=== PATIENT | male | born 1950 | race Caucasian/White ===

== ENCOUNTER 2023-02-06 08:46 | Outpatient (OUT) | payer MEDICARE, OTHER, SELFPAY ==
--- NOTE | 2023-02-06 08:55 | XR_ITS ---
[facility] [id number] Patient Name: GENESIS CADET MRN: [id number] date: 1950 Sex: M Assigned Patient Location: [facility] Current Patient Location: [facility] Accession/Order Number: [id number] Exam Date: 02/06/2023 09:00 Report Date: 02/06/2023 09:40 At the request of: CASE RUST Procedure: XR foot LT min 3V PROCEDURE: XR foot LT min 3V COMPARISON: None. HISTORY: Left Foot Pain M79.672 FINDINGS: BONES:No acute fracture or dislocation. Moderate degenerative changes in the midfoot most significant along the dorsal tarsometatarsal joints, corresponding to the patient's palpable abnormality demarcated with the BB marker. Moderate enthesopathic spurring of the calcaneus at the Achilles and plantar insertions SOFT TISSUES:Negative. No visible soft tissue swelling. EFFUSION:None visible. OTHER: Negative. IMPRESSION: Moderate degenerative changes, corresponding to the palpable marker Electronically authenticated by: STEVE JIMENEZ Date: 02/06/2023 09:40
== END 2023-02-06 08:47 ==
LOC: RAD 08:46
PROVIDERS: PCP Family Medicine; Visit Provider Family Medicine
DX: M79.672 Pain in left foot (principal)
CPT/HCPCS: 73630

== ENCOUNTER 2024-02-05 10:29 | Emergency (ER) | payer MEDICARE, OTHER, SELFPAY ==
[2024-02-05 10:34] VITALS: BP 132/45; PULSE 55; TEMP 37.3; O2SAT 99; BMI 30.3
--- NOTE | 2024-02-05 10:44 | XR_ITS ---
[address] [address] Patient Name: GENESIS CADET MRN: [id number] date: 1950 Sex: M Assigned Patient Location: ER Current Patient Location: ER Accession/Order Number: [id number] Exam Date: 02/05/2024 10:55 Report Date: 02/05/2024 11:18 At the request of: WILLIAM WEBER Procedure: XR wrist RT min 3V PROCEDURE: XR wrist RT min 3V COMPARISON: None. HISTORY: pain FINDINGS: BONES:No acute fracture or dislocation. Moderate diffuse degenerative changes with joint space narrowing marginal osteophyte formation and chondrocalcinosis SOFT TISSUES:Negative. No visible soft tissue swelling. EFFUSION:None visible. OTHER: Negative. XR/XR wrist RT min 3V IMPRESSION: Moderate degenerative changes. No acute fracture Electronically authenticated by: STEVE JIMENEZ Date: 02/05/2024 11:18
--- NOTE | 2024-02-05 11:40 | ED_ITS ---
HPI HPI - General Adult General Chief complaint: Extremity Problem, Nontraumatic Stated complaint: RIGHT HAND PAIN Time Seen by Provider: 02/05/24 10:34 Source: patient Mode of arrival: walk-in Limitations: no limitations History of Present Illness HPI narrative: 73-year-old male to the emergency department chief complaint of pain in his right wrist. Patient reports he has a history of an injury with a fracture to this wrist. No recent issues. He reports that on Friday he was doing some work on a vehicle and doing a lot of turning of wrenches and such and afterwards experienced discomfort in his wrist. Discomfort is increased and has not improved over the intervening time. He denies any redness, warmth. He reports that there is some trace appreciable swelling over his dorsal wrist. He denies any fever, sweats, chills. No other injuries. No recent infections. No history of gout. Related Data Home Medications ?Medication ?Instructions ?Recorded ?Confirmed lisinopril 40 mg tablet mg 02/05/24 metformin 500 mg tablet mg 02/05/24 metoprolol tartrate 25 mg tablet mg 02/05/24 nitroglycerin 0.4 mg sublingual mg 02/05/24 tablet rosuvastatin 40 mg tablet mg 02/05/24 Previous Rx's ?Medication ?Instructions ?Recorded oxycodone-acetaminophen 5 mg-325 1 tab PO Q6H PRN pain #12 tabs 02/05/24 mg tablet (Percocet) prednisone 20 mg tablet 40 mg (2 x 20 mg) PO DAILY 5 days 02/05/24 #10 tabs Allergies Allergy/AdvReac Type Severity Reaction Status Date / Time No Known Drug Allergies Allergy Verified 02/05/24 10:33 Opioid HPI Opioid Management Most Recent Opioid Data: Last Pain Scale 6 02/05/24 10:46 Review of Systems ROS Status of ROS 10 or more systems reviewed and unremark able except as noted in history and below Exam Narrative Exam Narrative: VITALS: I have reviewed the triage vital signs. GENERAL: Well developed, well appearing adult in no acute distress. NEURO: Alert and oriented. Moves all extremities. Face is symmetric and expressive. EYES: PERRL. No scleral icterus or conjunctival injection. No discharge. HENT: Normocephalic, atraumatic. Hearing is grossly intact. Nares grossly patent and without discharge. Mucous membranes moist. NECK: No JVD. Patient moves neck without restriction. Right upper Extremity: Radial Pulse is intact. Limb is similar color and temperature to the contralateral limb. Compartments soft. Edema about the wrist. No redness or warmth. No ecchymosis. No laceration. No abrasion. No deformity. No bony tenderness. 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 Normal ROM of wrist, elbow, shoulder. SKIN: Warm and dry. Normal turgor. No rash or lesions appreciated. PSYCH: Mood, affect, and interaction is appropriate to the setting. Constitutional Vital Signs, click to edit/add: Last Vital Signs Temp 99.2 F 02/05/24 10:34 Pulse 55 L 02/05/24 10:34 Resp 16 02/05/24 10:34 BP 132/45 L 02/05/24 10:34 Pulse Ox 99 02/05/24 10:34 Course Vital Signs Vital signs: Vital Signs Temperature 99.2 F 02/05/24 10:34 Pulse Rate 55 L 02/05/24 10:34 Respiratory Rate 16 02/05/24 10:34 Blood Pressure 132/45 L 02/05/24 10:34 Pulse Oximetry 99 02/05/24 10:34 Temperature 99.2 F 02/05/24 10:34 Pulse Rate 55 L 02/05/24 10:34 Respiratory Rate 16 02/05/24 10:34 Blood Pressure 132/45 L 02/05/24 10:34 Pulse Oximetry 99 02/05/24 10:34 Medical Decision Making MDM Narrative Medical decision making narrative: 73-year-old male to the emergency department chief complaint of discomfort in his wrist after increased activity fixing a vehicle on Friday. Vital stable, the patient is afebrile. The right upper extremity is neurovascularly intact. There is no redness, warmth, skin breaks to suggest infectious process. History and exam do not support septic arthritis. Suspect exacerbation of underlying arthritis as cause of his discomfort. X-ray was ordered and shows moderate degenerative changes. Patient given a Percocet for his discomfort. OARRS reviewed. Pain medication and prednisone for home. He will follow-up with PCP. Return precautions were discussed. All questions were answered. The patient was discharged home. Medical Records Medical records reviewed: Yes I reviewed the patient's medical records Imaging Data X-ray wrist: Attestation: I have reviewed the pertinent imaging results. Radiologist's impression: ITS Impressions Wrist X-Ray 02/05/24 10:44 IMPRESSION: Moderate degenerative changes. No acute fracture Electronically authenticated by: STEVE JIMENEZ Date: 02/05/2024 11:18 Discharge Plan Discharge Stand Alone Forms: Portal Instructions Chief Complaint: Extremity Problem, Nontraumatic Clinical Impression: Acute arthritis Patient Disposition: Home, Self-Care Time of Disposition Decision: 11:35 Condition: Good Prescriptions / Home Meds: New prednisone 20 mg tablet 40 mg PO DAILY 5 Days Qty: 10 0RF oxycodone-acetaminophen [Percocet] 5-325 mg tablet 1 tab PO Q6H PRN (Reason: pain) Qty: 12 0RF No Action metformin 500 mg tablet nitroglycerin 0.4 mg tablet, sublingual lisinopril 40 mg tablet rosuvastatin 40 mg tablet metoprolol tartrate 25 mg tablet Print Language: Greenlandic Referrals: CASE RUST [Primary Care Provider] - 1 week
[2024-02-05] MEDS: OXYCODONE HCL/ACETAMINOPHEN 5MG/325MG 1 TAB PO (11:42)
[2024-02-05 11:44] VITALS: BP 131/56; PULSE 62; O2SAT 99
== END 2024-02-05 11:45 | disposition home or self-care (01) ==
PROVIDERS: Emergency Provider Student in an Organized Health Care Education/Training Program; PCP Family Medicine
DX: M19.031 Primary osteoarthritis, right wrist (principal)
CPT/HCPCS: 73110; 99283

== ENCOUNTER 2024-08-10 09:49 | Outpatient (OUT) | payer MEDICARE, OTHER, SELFPAY ==
--- NOTE | 2024-08-10 09:57 | CA_ITS ---
Patient Name: GENESIS CADET MR#: [id number] : 1950 Exam Date: 08/10/2024 Ordering Doctor: DR. NORAH CHIANG M.D. ECHOCARDIOGRAM REPORT PROCEDURE: CA ECHO DOPPLER COMPLETE INDICATIONS: CAD, Afib, SVT COMPARISON: None. DESCRIPTION: COMPLETE ECHOCARDIOGRAM Real-time transthoracic echocardiography with 2D, M-mode, spectral and color flow Doppler performed. QUALITY: Technical quality was good. LEFT VENTRICLE: Normal chamber size. Mild concentric left ventricular hypertrophy. LV EF: Global left ventricular systolic function is normal. Calculated left ventricular ejection fraction is 66%. No significant wall motion abnormalities. DIASTOLIC: Normal diastolic function. ATRIAL SEPTUM: Inadequately seen. LEFT ATRIUM: Moderate dilatation. RIGHT ATRIUM: Mild dilatation. RIGHT VENTRICLE: Normal chamber size. Normal right ventricular systolic function. TRICUSPID VALVE: Normal mobility and thickness. No stenosis with mild regurgitation. No evidence of pulmonary hypertension. RVSP 34mmHg MITRAL VALVE: Normal mobility and thickness. No evidence of mitral valve stenosis. There is no mitral annular calcification. Mild mitral regurgitation. AORTIC VALVE: Normal trileaflet appearance. No visible sclerosis. Normal leaflet mobility. No evidence of aortic valve stenosis. Mild aortic regurgitation. AORTIC ROOT: Normal diameter and appearance. PULMONIC VALVE: Normal thickness and mobility. No stenosis. PERICARDIUM: No evidence of pericardial effusion. IVC: Collapses with inspirations. Normal size. CONCLUSION: 1. Global left ventricular systolic function is normal; visually estimated ejection fraction is 60 to 65% 2. Normal right ventricular size and systolic function 3. Mild left ventricular hypertrophy 4. Normal diastolic function 5. Biatrial dilatation 6. Mild tricuspid regurgitation 7. Mild mitral regurgitation 8. Mild aortic valve regurgitation Adult Echocardiography Procedure Report Left Ventricle LVEDD (3.7 - 5.6 cm): 4.22 cm LVESD (2.2 - 4.0 cm): 2.86 cm LVIVS thickness (0.6 - 1.2 cm): 1.13 cm LVPW thickness (0.5 - 1.0 cm): 1.08 cm e': 0.10 m/s E - e': 9.48 LVOT Max Gradient: 4.12 mm[Hg] LVOT Area (cm2): 1.01 m/s Peak Velocity (LVOT): 1.01 m/s Mean Velocity (LVOT): 0.60 m/s LVOT Diameter 2.00 cm Left Ventricular Ejection Fraction: 66.45 % Left Atrium LA Volume Index (2D A2C): 46.08 ml/m2 Left Atrium Systolic Dimension: 4.45 cm Mitral Valve MV E to A Ratio: 1.65 Mitral Valve A-Wave Peak Velocity: 0.55 m/s Mitral Valve E-Wave Peak Velocity: 0.91 m/s Right Ventricle RV Internal Diastolic Dimension: 3.09 cm Aorta AO Root Diam: 3.31 cm Ascending Ao Diam: 3.59 cm Aortic Valve AoV Area (Peak Patrice): 2.06 cm2, 2.06 cm2 AoV Area (VTI): 2.05 cm2, 2.05 cm2 Deceleration [place]: 0.96 m/s2 Pressure Half-Time: 931.67 ms Peak Velocity(Antegrade Flow): 1.54 m/s Peak Gradient(Antegrade Flow): 9.50 mm[Hg] Mean Velocity(Antegrade Flow): 1.00 m/s Mean Gradient(Antegrade Flow): 4.72 mm[Hg] Velocity Time Integral: 38.99 cm Tricuspid Valve Peak Velocity (Regurgitant Flow): 2.75 m/s, 2.50 m/s, 2.76 m/s Pulmonic Valve Mean Gradient: 1.81 mm[Hg], 2.07 mm[Hg] Mean Velocity: 0.63 m/s, 0.67 m/s Peak Velocity: 0.98 m/s Peak Gradient: 3.56 mm[Hg], 4.13 mm[Hg] Right Atrium Right Atrium Systolic Pressure: 43.97 ml, 43.97 ml Dictated by: Prasanth Jha M.D. on 08/10/2024 at 17:06 Approved by: Prasanth Jha M.D. on 08/10/2024 at 17:09
--- OUTSIDE RECORDS SUMMARY | 2024-08-10 10:04 | XMS_ITS | CCD ---
Author Organization [facility] Care Team Providers Care Cylinder Loader Name Role Phone NAWRAS, ALI T Unavailable Unavailable NAWRAS, ALI T Unavailable Unavailable LEONID, AMOR Unavailable Unavailable FURLONG, JIMBO Unavailable Unavailable AK Unavailable Unavailable NAWRAS, ALI T Unavailable Unavailable AK Unavailable Unavailable LANCZ BURT Unavailable Unavailable FURLONG, DR JIMBO Meredith Attending Unavailable FURLONG, DR JIMBO Meredith Consulting Unavailable FURLONG, DR JIMBO Meredith Primary Care Unavailable FURLONG, DR JIMBO Meredith Admitting Unavailable NORAH ALLEN Attending Unavailable FURLONG, JIMBO Meredith Attending Unavailable FURLONG, JIMBO Meredith Referring Unavailable FURLONG, JIMBO Meredith Primary Care Unavailable FURLONG, JIMBO Meredith Attending Unavailable FURLONG, JIMBO Meredith Referring Unavailable FURLONG, JIMBO Meredith Primary Care Unavailable FURLONG, JIMBO Meredith Referring Unavailable FURLONG, JIMBO Meredith Primary Care Unavailable FURLONG, JIMBO Meredith Referring Unavailable FURLONG, JIMBO Meredith Primary Care Unavailable Furlong DOJimbo Primary Care Provider Allergies Allergy Classification Reported Allergen(s) Allergy Type Date of Onset Reaction(s) Facility (2 sources) oxyCODONE Drug Allergy 11-21-2016 [facility] Repository (4 sources) Acetaminophen / oxyCODONE; Translations: [OXYCODONE-ACETAMI NOPHEN] Drug Allergy 08-05-2022 Rash [facility] Repository (4 sources) oxyCODONE; Translations: [OXYCODONE HCL] Drug Allergy 08-05-2022 Itching [facility] Repository Medications Current Medications Medication Drug Class(es) Dates Sig (Normalized) Sig (Original) aspirin 81 mg oral tablet (1 source) Platelet Aggregation Inhibitor, Nonsteroidal Anti-inflammatory Drug take 1 tablet by mouth once daily aspirin 81 mg capsule 1 tablet Orally Once a day Active hydroCHLOROthiazide 12.5 mg oral tablet (2 sources) Thiazide Diuretic Start: 06-24-20 End: 06-25-20 24 take 1 tablet by mouth once daily hydroCHLOROthiazide (HYDRODIURIL) 12.5 mg tablet Indications: Essential (primary) hypertension TAKE 1 TABLET BY MOUTH DAILY 90 tablet 1 06/25/2024 Active latanoprost 0.05 mg/ml ophthalmic solution (1 source) Prostaglandin Analog take 1 drop(s) into the eye(s) in the evening latanoprost (XALATAN) 0.005 % ophthalmic solution latanoprost 0.005 % eye drops Instill 1 (ONE) DROP IN BOTH EYES IN THE EVENING DIRECTED Active lisinopril 40 mg oral tablet (2 sources) Angiotensin Converting Enzyme Inhibitor Start: 06-24-20 End: 06-25-20 24 take 1 tablet by mouth once daily lisinopriL (PRINIVIL,ZESTRIL) 40 mg tablet Indications: Essential (primary) hypertension TAKE 1 TABLET BY MOUTH DAILY 90 tablet 3 06/25/2024 Active metFORMIN hydrochloride 500 mg oral tablet (1 source) Biguanide Start: 03-31-20 24 take 1 tablet by mouth once daily at breakfast metFORMIN (GLUCOPHAGE) 500 mg tablet take 1 tablet by mouth daily with breakfast 90 tablet 1 03/31/2024 Active metoprolol tartrate 25 mg oral tablet (1 source) beta-Adrenergic Shanta Start: 03-31-20 24 take 1 tablet by mouth twice daily metoprolol tartrate (LOPRESSOR) 25 mg tablet Indications: Essential (primary) hypertension take 1 tablet by mouth twice daily 180 tablet 3 03/31/2024 Active firbxfcuicad-zqelbaih-m utein (MULTIVITAMIN 50 PLUS) tablet (1 source) multivitamin-min erals- lutein (MULTIVITAMIN 50 PLUS) tablet Take 1 tablet by mouth in the morning. Active nitroglycerin 0.4 mg sublingual tablet (1 source) Nitrate Vasodilator Start: 06-26-20 nitroglycerin (NITROSTAT) 0.4 MG SL tablet DISSOLVE 1 TABLET UNDER THE TONGUE NEEDED FOR CHEST PAIN- MAY REPEAT EVERY 5 MINUTES IF NEEDED ( MAX 3 DOSES.- IF NO RELIEF CALL 911) 06/26/2022 Active omega 0-zyz-xyr-fish oil 1,000 mg (250 mg-750 mg)/5 mL liquid (1 source) take 1 capsule by mouth at bedtime omega 6-rmt-wjq-fish oil 1,000 mg (250 mg-750 mg)/5 mL liquid Take 1 capsule by mouth in the morning and at bedtime. Active rosuvastatin calcium 40 mg oral tablet (2 sources) HMG-CoA Reductase Inhibitor Start: 06-24-20 End: 06-25-20 24 take 1 tablet by mouth once daily rosuvastatin (CRESTOR) 40 mg tablet Indications: Hyperlipidemia, unspecified TAKE 1 TABLET BY MOUTH DAILY 90 tablet 3 06/25/2024 Active Problems Active Problems Problem Classification Problem Date Documented Date Episodic/Chronic Cardiac dysrhythmias (6 sources) Paroxysmal atrial fibrillation; Translations: [Paroxysmal atrial fibrillation] Onset: 06-25-2012 Chronic Coronary atherosclerosis and other heart disease (7 sources) Atherosclerotic heart disease of [place] coronary artery without angina pectoris; Translations: [Coronary atherosclerosis] Onset: 05-18-2012 Chronic Coronary atherosclerosis and other heart disease (2 sources) Presence of aortocoronary bypass graft; Translations: [Presence of aortocoronary bypass graft] Onset: 02-04-2024 Episodic Disorders of lipid metabolism (11 sources) Hyperlipidemia, unspecified; Translations: [Mixed hyperlipidemia] Onset: 10-28-2016 Chronic Essential hypertension (9 sources) Essential (primary) hypertension; Translations: [Hypertensive disorder] Onset: 10-28-2016 Chronic Osteoarthritis (2 sources) Primary osteoarthritis, right wrist; Translations: [Osteoarthritis of joint of right wrist] Onset: 02-23-2024 02-23-2024 Chronic Other screening for suspected conditions (not mental disorders or infectious disease) (2 sources) Encounter for screening for malignant neoplasm of prostate; Translations: [Encounter for screening for malignant neoplasm of prostate] Onset: 02-23-2024 Episodic Unclassified (2 sources) Unknown / UNK(Unknown) Onset: 02-20-2017 Unclassified (1 source) Pure hypercholesterolemia, unspecified; Translations: [PURE HYPERCHOLESTEROLEMIA, UNSPECIFIED] Onset: 02-20-2017 Unclassified (1 source) Supraventricular tachycardia, unspecified; Translations: [Supraventricular tachycardia, unspecified] Onset: 02-04-2024 Past or Other Problems Problem Classification Problem Date Documented Date Episodic/Chronic Biliary tract disease (5 sources) Calculus of bile duct without cholangitis or cholecystitis without obstruction; Translations: [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] Onset: 02-20-2017 08-05-2022 Episodic Cardiac dysrhythmias (2 sources) Palpitations; Translations: [Palpitations] Onset: 06-25-2012 02-05-2023 Episodic Diabetes mellitus without complication (1 source) Type 2 diabetes mellitus without complication; Translations: [Type 2 diabetes mellitus without complications] Onset: 08-05-2022 Resolved: 08-05-2022 08-05-2022 Chronic Diabetes mellitus without complication (3 sources) Impaired fasting glucose; Translations: [Impaired fasting glycemia] Onset: 10-28-2016 08-05-2022 Episodic Esophageal disorders (1 source) Laryngopharyngeal reflux; Translations: [Gastro-esophageal reflux disease without esophagitis] Onset: 04-08-2020 Resolved: 02-05-2023 02-05-2023 Chronic Mood disorders (1 source) Mood disorders Onset: 04-22-2024 04-22-2024 Other aftercare (1 source) long term care administrator (current) use of aspirin; Translations: [SENIOR LIVING (CURRENT) USE OF ASPIRIN] Onset: 02-20-2017 Episodic Other nutritional; endocrine; and metabolic disorders (3 sources) Overweight; Translations: [Overweight] Onset: 08-13-2023 Episodic Other nutritional; endocrine; and metabolic disorders (1 source) Body mass index 25-29 - overweight; Translations: [Overweight] Onset: 10-11-2017 Resolved: 02-23-2024 02-23-2024 Episodic Other upper respiratory disease (1 source) Deviated nasal septum; Translations: [Deviated nasal septum] Onset: 05-01-2017 08-05-2022 Episodic Unclassified (1 source) Supraventricular tachycardia, unspecified; Translations: [Supraventricular tachycardia, unspecified] Onset: 02-04-2024 Unclassified (1 source) Onset: 08-13-2023 08-13-2023 Results Test Name Value Interpretation Reference Range Facility COMPREHENSIVE METABOLIC PANE Estuardo 02-23-2024 Albumin [Mass/Vol] 4.4 g/dL Normal 3.2-5.3 [facility] Comment on above: Performed By: #### CMP, 50219-6, 2857-1, HA1C #### [facility] ([id number]) [address], [address] [place] [address] ALP [Catalytic activity/Vol] 51 U/L Normal 39-130 [facility] Comment on above: Performed By: #### CMP, 20824-7, 2857-1, HA1C #### [facility] ([id number]) [address], [address] [place] [address] ALT [Catalytic activity/Vol] 28 U/L Normal 0-40 [facility] Comment on above: Performed By: #### CMP, 18453-3, 2857-1, HA1C #### [facility] ([id number]) [address], [address] [place] [address] Anion gap [Moles/Vol] 8 mmol/L Normal 5-15 [facility] Comment on above: Performed By: #### CMP, 71843-7, 2857-1, HA1C #### [facility] ([id number]) [address], [address] [place] [address] AST [Catalytic activity/Vol] 37 U/L Normal 0-41 [facility] Comment on above: Performed By: #### CMP, 88990-3, 2857-1, HA1C #### [facility] ([id number]) [address], [address] [place] [address] Bilirubin [Mass/Vol] 0.8 mg/dL Normal 0.3-1.2 [facility] Comment on above: Performed By: #### CMP, 16929-1, 2857-1, HA1C #### [facility] ([id number]) [address], [address] [place] [address] Calcium [Mass/Vol] 9.8 mg/dL Normal 8.5-10.5 [facility] Comment on above: Performed By: #### CMP, 32191-3, 2857-1, HA1C #### [facility] ([id number]) [address], [address] [place] [address] Chloride [Moles/Vol] 105 mmol/L Normal 98-109 [facility] Comment on above: Performed By: #### SILVIANO, 65797-9, 2857-1, HA1C #### [facility] ([id number]) [address], [address] [place] [address] CO2 [Moles/Vol] 26 mmol/L Normal 22-32 [facility] Comment on above: Performed By: #### SILVIANO, 93337-0, 2857-1, HA1C #### [facility] ([id number]) [address], [address] [place] [address] Creatinine [Mass/Vol] 0.88 mg/dL Normal 0.60-1.30 [facility] Comment on above: Result Comment: METHOD TRACEABLE TO IDMS STANDARD Performed By: #### C RIRI, 90248-8, 285-, HA1C #### [facility] ([id number]) [address], [address] [place] [address] eGFR (CKD-EPI) NON-RACE DEPENDENT >90 Normal >59 [facility] Comment on above: Result Comment: Reported eGFR is based on the CKD-EPI 2021 equation that does not use a race coefficient. Performed By: #### C RIRI, 17759-7, 2857-1, NIKKI1C #### [facility] ([id number]) [address], [address] [place] [address] Glucose [Mass/Vol] 104 mg/dL High 65-99 [facility] Comment on above: Performed By: #### SILVIANO, 42277-2, 2857-1, HA1C #### [facility] ([id number]) [address], [address] [place] [address] Potassium [Moles/Vol] 4.0 mmol/L Normal 3.5-5.0 [facility] Comment on above: Performed By: #### SILVIANO, 55222-4, 2857-1, HA1C #### [facility] ([id number]) [address] [place] [address] Protein [Mass/Vol] 7.6 g/dL Normal 6.0-8.0 [facility] Comment on above: Performed By: #### SILVIANO, 55970-0, 2857-1, HA1C #### [facility] ([id number]) [address] [place] [address] Sodium [Moles/Vol] 139 mmol/L Normal 134-146 [facility] Comment on above: Performed By: #### SILVIANO, 97367-8, 2857-1, HA1C #### [facility] ([id number]) [address] [place] [address] Urea nitrogen [Mass/Vol] 14 mg/dL Normal 5-27 [facility] Comment on above: Performed By: #### SILVIANO, 97236-3, 2857-1, HA1C #### [facility] ([id number]) [address] [place] [address] HGB A1C (GLYCO-HGB)on 2023 Glucose [Mass/Vol] 131 mg/dL Normal [facility] Comment on above: Performed By: #### SILVIANO, 10083-0, 2857-1, HA1C #### [facility] ([id number]) [address], [address] [place] [address] HbA1c (Bld) [Mass fraction] 6.2 % High 4.4-5.6 [facility] Comment on above: Result Comment: NOTE ADA Guidelines Result HgbA1c Normal : less than 5.7 % Prediabetes : 5.7 % to 6.4 % Diabetes : > 6.4 % Use with caution in patients with abnormal hemoglobin variants as the half-life of red blood cells and in vivo glycation rates are affected. Performed By: #### Estefania MENEZES, 10078-0, 2857-1, OLGA LIDIA #### [facility] ([id number]) [address], [address] [place] [address] Lipid 1996 panelon 4 Cholesterol [Mass/Vol] 116 mg/dL Low 150-200 [facility] Comment on above: Performed By: ###Becki SHORE, 70472-2, 2856-, OLGA LIDIA #### [facility] ([id number]) [address] [place] [address] Cholesterol in HDL [Mass/Vol] 45 mg/dL Normal >39 [facility] Comment on above: Result Comment: HDL <40 mg/dL - High Risk HDL > or = 40mg/dL- Desirable HDL >60 mg/dL - Negative Risk Performed By: ###[place], [address]-1, 2856-, OLGA LIDIA #### [facility] ([id number]) [address] [place] [address] Cholesterol in LDL [Mass/Vol] 39 mg/dL Normal <130 [facility] Comment on above: Result Comment: LDL <100 mg/dL - Desirable LDL >160 mg/dL - High Risk Performed By: #### Estefania MENEZES, 42076-7, 285-, OLGA LIDIA #### [facility] ([id number]) [address], [address] [place] [address] Cholesterol in VLDL [Mass/Vol] 32 mg/dL High 0-30 [facility] Comment on above: Performed By: #### SILVIANO, 77922-7, 2857-1, HA1C #### [facility] ([id number]) [address] [address] CHOLESTEROL:HDL 2.6 Normal 1.0-5.0 [facility] Comment on above: Performed By: #### CMP, 63720-3, 2857-1, HA1C #### [facility] ([id number]) [address] [place] [address] Triglyceride [Mass/Vol] 159 mg/dL High 27-150 [facility] Comment on above: Performed By: #### CMP, 60456-8, 2857-1, HA1C #### [facility] ([id number]) [address] [place] [address] Prostate specific Ag [Mass/V ol]on 02-23-2024 PSA SCREEN 2.33 ng/mL Normal 0.00-4.00 [facility] Comment on above: Result Comment: The method used for this test is Dylon Concepcion DXI chemiluminescent immunoassay. Values obtained by different assay methods cannot be used interchangeably. Performed By: #### C MP, 82922-7, 2857-1, HA1C #### [facility] ([id number]) [address] [place] [address] 29on 02-04-2024 29 Addended by: NORAH ALLEN on: 02/12/2024 05:03 PM Modules accepted: Orders Normal [facility] Office Visiton 02-04-2024 Follow-up visit [id number] Jayshree Cadet 1950 M Date Provider Department Center 02/04/2024 [id number]-EZXXQLNORAH ALLEN [facility] No family history on file Level of Service:29147 [place] OFFICE/OUTPATIENT ESTABLISHED MOD MDM 30 MIN Normal [facility] COMPREHENSIVE METABOLIC PANE Estuardo 08-13-2023 Albumin [Mass/Vol] 4.7 g/dL Normal 3.2-5.3 [facility] Comment on above: Performed By: #### SILVIANO, 48287-5 #### [facility] ([id number]) [address], [address] [place] [address] ALP [Catalytic activity/Vol] 54 U/L Normal 39-130 [facility] Comment on above: Performed By: #### CMP, 40788-8 #### [facility] ([id number]) [address], [address] [place] [address] ALT [Catalytic activity/Vol] 24 U/L Normal 0-40 [facility] Comment on above: Performed By: #### SILVIANO, 20404-3 #### [facility] ([id number]) [address], [address] [place] [address] Anion gap [Moles/Vol] 10 mmol/L Normal 5-15 [facility] Comment on above: Performed By: #### SILVIANO, 98813-5 #### [facility] ([id number]) [address], [address] [place] [address] AST [Catalytic activity/Vol] 31 U/L Normal 0-41 [facility] Comment on above: Performed By: #### SILVIANO, 85613-6 #### [facility] ([id number]) [address], [address] [place] [address] Bilirubin [Mass/Vol] 0.8 mg/dL Normal 0.3-1.2 [facility] Comment on above: Performed By: #### CMP, 36929-3 #### [facility] ([id number]) [address], [address] [place] [address] Calcium [Mass/Vol] 10.0 mg/dL Normal 8.5-10.5 [facility] Comment on above: Performed By: #### CMP, 03578-7 #### [facility] ([id number]) [address], [address] [place] [address] Chloride [Moles/Vol] 104 mmol/L Normal 98-109 [facility] Comment on above: Performed By: #### SILVIANO, 53361-4 #### [facility] ([id number]) [address], [address] [place] [address] CO2 [Moles/Vol] 25 mmol/L Normal 22-32 [facility] Comment on above: Performed By: #### SILVIANO, 23612-6 #### [facility] ([id number]) [address] [place] [address] Creatinine [Mass/Vol] 0.88 mg/dL Normal 0.60-1.30 [facility] Comment on above: Result Comment: METHOD TRACEABLE TO IDMS STANDARD Performed By: #### C RIRI, 52150-9 #### [facility] ([id number]) [address] [place] [address] eGFR (CKD-EPI) NON-RACE DEPENDENT >90 Normal >59 [facility] Comment on above: Result Comment: Reported eGFR is based on the CKD-EPI 2020 equation that does not use a race coefficient. Performed By: #### C RIRI, 74769-2 #### [facility] ([id number]) [address], [address] [place] [address] Glucose [Mass/Vol] 103 mg/dL High 65-99 [facility] Comment on above: Performed By: #### SILVIANO, 90603-5 #### [facility] ([id number]) [address] [place] [address] Potassium [Moles/Vol] 4.1 mmol/L Normal 3.5-5.0 [facility] Comment on above: Performed By: #### SILVIANO, 54754-8 #### [facility] ([id number]) [address], [address] [place] [address] Protein [Mass/Vol] 8.0 g/dL Normal 6.0-8.0 [facility] Comment on above: Performed By: #### SILVIANO, 60962-0 #### [facility] ([id number]) [address], [address] [place] [address] Sodium [Moles/Vol] 139 mmol/L Normal 134-146 [facility] Comment on above: Performed By: #### SILVIANO, 13073-4 #### [facility] ([id number]) [address] [place] [address] Urea nitrogen [Mass/Vol] 20 mg/dL Normal 5-27 [facility] Comment on above: Performed By: #### SILVIANO, 58619-8 #### [facility] ([id number]) [address] [place] [address] HGB A1C (GLYCO-HGB)on 2022 Glucose [Mass/Vol] 123 mg/dL Normal [facility] Comment on above: Performed By: #### SILVIANO, 09260-3 #### [facility] ([id number]) [address] [place] [address] HbA1c (Bld) [Mass fraction] 5.9 % High 4.4-5.6 [facility] Comment on above: Result Comment: NOTE ADA Guidelines Result HgbA1c Normal : less than 5.7 % Prediabetes : 5.7 % to 6.4 % Diabetes : > 6.4 % Use with caution in patients with abnormal hemoglobin variants as the half-life of red blood cells and in vivo glycation rates are affected. Performed By: #### C , 47264-2 #### [facility] ([id number]) [address] [place] [address] Lipid 1996 panelon 3 Cholesterol [Mass/Vol] 116 mg/dL Low 150-200 [facility] Comment on above: Performed By: #### SILVIANO, 57726-8 #### [facility] ([id number]) [address] [place] [address] Cholesterol in HDL [Mass/Vol] 42 mg/dL Normal >39 [facility] Comment on above: Result Comment: HDL <40 mg/dL - High Risk HDL > or = 40mg/dL- Desirable HDL >60 mg/dL - Negative Risk Performed By: #### Estefania MENEZES, 21526-6 #### [facility] ([id number]) [address] [place] [address] Cholesterol in LDL [Mass/Vol] 40 mg/dL Normal <130 [facility] Comment on above: Result Comment: LDL <100 mg/dL - Desirable LDL >160 mg/dL - High Risk Performed By: #### Estefania MENEZES, 35087-9 #### [facility] ([id number]) [address] [place] [address] Cholesterol in VLDL [Mass/Vol] 34 mg/dL High 0-30 [facility] Comment on above: Performed By: #### SILVIANO, 69408-1 #### [facility] ([id number]) [address] [place] [address] CHOLESTEROL:HDL 2.8 Normal 1.0-5.0 [facility] Comment on above: Performed By: #### SILVIANO, 37597-7 #### [facility] ([id number]) [address] [place] [address] Triglyceride [Mass/Vol] 172 mg/dL High 27-150 [facility] Comment on above: Performed By: #### CMP, 70775-2 #### [facility] ([id number]) [address] [place] [address] LIPID PROFILEon 07-25-2022 CHOL-HDL RATIO NORM SEE BELOW Normal [facility] Comment on above: Result Comment: 3.3 - 4.4 LOW RISK 4.4 - 7.1 AVERAGE RISK 7.1 - 11.0 MODERATE RISK >11.0 HIGH RISK Performed By: #### C MP, LIPID #### [facility] [address] [address] [address] Tessy Duran Cholesterol [Mass/Vol] 120 mg/dL Normal <=200 [facility] Comment on above: Performed By: #### CMP, LIPID #### [facility] [address] [address] [address] Tessy Duran Cholesterol in HDL [Mass/Vol] 48 mg/dL Normal 40-60 [facility] Comment on above: Performed By: #### CMP, LIPID #### [facility] [address] [address] [address] Tessy Duran Cholesterol in LDL [Mass/Vol] 39.4 mg/dL Normal [facility] Comment on above: Performed By: #### CMP, LIPID #### [facility] [address] [address] [address] Tessy Duran Cholesterol.tota l/Cholesterol in HDL [Mass ratio] 2.5 {ratio} Normal [facility] Comment on above: Performed By: #### CMP, LIPID #### [facility] [address] [place] [address] Dr. Tessy Duran HDL NORMAL > or = 60 mg/dl - LO W CARDIOVASCULAR RISK <40 mg/dl - HIGH CARDIOVASCULAR RISK Normal [facility] Comment on above: Performed By: #### CMP, LIPID #### [facility] [address] [address] [address] Tessy Duran LDL CALC NORMAL SEE BELOW Normal [facility] Comment on above: Result Comment: <100 mg/dl OPTIMAL 100 - 129 mg/dl NEAR OR ABOVE OPTIMAL 130 - 159 mg/dl BORDERLINE HIGH 160 - 189 mg/dl HIGH >190 mg/dl VERY HIGH Performed By: #### C MP, LIPID #### [facility] [address] [place] [address] Dr. Tessy Duran Triglyceride [Mass/Vol] 163 mg/dL Critically high <=150 [facility] Comment on above: Performed By: #### CMP, LIPID #### [facility] [address] [place] [address] Dr. Tessy Duran VLDL CALC 32.6 mg/dL Normal [facility] Comment on above: Performed By: #### CMP, LIPID #### [facility] [address] [place] [address] Dr. Tessy Duran PROF 14(COMP METB)on 022 Albumin [Mass/Vol] 4.1 g/dL Normal 3.4-5.0 [facility] Comment on above: Performed By: #### CMP, LIPID #### [facility] [address] [place] [address] Dr. Tessy Duran Albumin/Globulin [Mass ratio] 1.0 {ratio} Normal [facility] Comment on above: Performed By: #### CMP, LIPID #### [facility] [address] [place] [address] Dr. Tessy Duran ALP [Catalytic activity/Vol] 59 U/L Normal 46-116 [facility] Comment on above: Performed By: #### CMP, LIPID #### [facility] [address] [place] [address] Dr. Tessy Duran ALT [Catalytic activity/Vol] 54 U/L Normal 16-63 [facility] Comment on above: Performed By: #### CMP, LIPID #### [facility] [address] [place] [address] Dr. Tessy Duran Anion gap [Moles/Vol] 14.5 mmol/L Normal [facility] Comment on above: Performed By: #### CMP, LIPID #### [facility] [address] [place] [address] Dr. Tessy Duran AST [Catalytic activity/Vol] 48 U/L Critically high 15-37 [facility] Comment on above: Performed By: #### CMP, LIPID #### [facility] [address] [address] [address] Tessy Duran Bilirubin [Mass/Vol] 0.7 mg/dL Normal 0.2-1.0 [facility] Comment on above: Performed By: #### CMP, LIPID #### [facility] [address] [address] [address] Tessy Duran Calcium [Mass/Vol] 9.2 mg/dL Normal 8.5-10.1 [facility] Comment on above: Performed By: #### CMP, LIPID #### [facility] [address] [address] [address] Tessy Duran Chloride [Moles/Vol] 103 mmol/L Normal 98-107 [facility] Comment on above: Performed By: #### CMP, LIPID #### [facility] [address] [address] [address] Tessy Duran CO2 [Moles/Vol] 24.3 mmol/L Normal 21.0-32.0 [facility] Comment on above: Performed By: #### CMP, LIPID #### [facility] [address] [address] [address] Tessy Duran Creatinine [Mass/Vol] 0.87 mg/dL Normal 0.70-1.30 [facility] Comment on above: Performed By: #### CMP, LIPID #### [facility] [address] [address] [address] Tessy Duran EGFR-AF [place] >60 Normal >=60 [facility] Comment on above: Performed By: #### CMP, LIPID #### [facility] [address] [address] [address] Tessy Duran EGFR-NON AF [place] >60 Normal >=60 [facility] Comment on above: Performed By: #### CMP, LIPID #### [facility] [address] [address] [address] Tessy Duran Globulin (S) [Mass/Vol] 4.2 g/dL Normal [facility] Comment on above: Performed By: #### CMP, LIPID #### [facility] [address] [address] [address] Tessy Duran Glucose [Mass/Vol] 104 mg/dL Normal 74-106 [facility] Comment on above: Performed By: #### CMP, LIPID #### [facility] [address] [address] [address] Tessy Duran Potassium [Moles/Vol] 3.8 mmol/L Normal 3.5-5.1 [facility] Comment on above: Performed By: #### CMP, LIPID #### [facility] [address] [address] [address] Tessy Duran Protein [Mass/Vol] 8.3 g/dL Critically high 6.4-8.2 [facility] Comment on above: Performed By: #### CMP, LIPID #### [facility] [address] [address] [address] Tessy Duran Sodium [Moles/Vol] 138 mmol/L Normal 136-145 [facility] Comment on above: Performed By: #### CMP, LIPID #### [facility] [address] [address] [address] Tessy Duran Urea nitrogen [Mass/Vol] 16.0 mg/dL Normal 7.0-18.0 [facility] Comment on above: Performed By: #### CMP, LIPID #### [facility] [address] [address] [address] Tessy Duran Urea nitrogen/Creatin ine [Mass ratio] 18.4 mg/mg Normal [facility] Comment on above: Performed By: #### CMP, LIPID #### [facility] [address] [address] [address] Tessy Duran BASIC METABOLIC PANELon BUN/CREATININE RATIO NOT APPLICABLE Normal 6-22 [facility] Comment on above: Performed By: #### 03084, 496, 4420 #### [facility] [address], [address] [place] [id number] Director Of Billing: Karlo Ardon MD Calcium [Mass/Vol] 9.7 mg/dL Normal 8.6-10.3 [facility] Comment on above: Performed By: #### 79575, 496, 7600 #### [facility] [place] [address] Director Of Billing: Karlo Ardon MD Chloride [Moles/Vol] 106 mmol/L Normal 98-110 [facility] Comment on above: Performed By: #### 13554, 496, 7600 #### [facility] [place] [address] Director Of Billing: Karlo Ardon MD CO2 [Moles/Vol] 26 mmol/L Normal 20-32 [facility] Comment on above: Performed By: #### 78506, 496, 7600 #### [facility] [place] [address] Director Of Billing: Karlo Ardon MD Creatinine [Mass/Vol] 0.95 mg/dL Normal 0.70-1.18 [facility] Comment on above: Result Comment: For patients >49 years o f age, the reference limit for Creatinine is approximately 13% higher for people identified as -[place]. Performed By: #### 1 0165, 496, 7600 #### [facility] [place] [address] Director Of Billing: Karlo Ardon MD eGFR NON-AFR. [place] 81 mL/min/1.73m2 Normal > OR = 60 [facility] Comment on above: Performed By: #### 20427, 496, 7600 #### [facility] [place] [address] Director Of Billing: Karlo Ardon MD GFR/1.73 sq M.predicted among blacks MDRD (S/P/Bld) [Vol rate/Area] 94 mL/min/{1.73_m2} Normal > OR = 60 [facility] Comment on above: Performed By: #### 84506, 496, 7600 #### [facility] [place] [address] Director Of Billing: Karlo Ardon MD Glucose [Mass/Vol] 99 mg/dL Normal 65-99 [facility] Comment on above: Result Comment: Fasting reference interval Performed By: #### 1 0165, 496, 7600 #### [facility] [place] [address] Director Of Billing: Karlo Ardon MD Potassium [Moles/Vol] 4.1 mmol/L Normal 3.5-5.3 [facility] Comment on above: Performed By: #### 72385, 496, 7600 #### [facility] [place] [address] Director Of Billing: Karlo Ardon MD Sodium [Moles/Vol] 140 mmol/L Normal 135-146 [facility] Comment on above: Performed By: #### 80600, 496, 7600 #### [facility] [place] [address] Director Of Billing: Karlo Ardon MD Urea nitrogen [Mass/Vol] 22 mg/dL Normal 7-25 [facility] Comment on above: Performed By: #### 92892, 496, 7600 #### [facility] [place] [address] Director Of Billing: Karlo Ardon MD HEMOGLOBIN A1con 01-31-2022 HEMOGLOBIN A1c 5.6 % of total Hgb Normal <5.7 [facility] Comment on above: Result Comment: For the purpose of scree leni for the presence of diabetes: <5.7% Consistent with the absence of diabetes 5.7-6.4% Consistent with increased risk for diabetes (prediabetes) > or =6.5% Consistent with diabetes This assay result is consistent with a decreased risk of diabetes. Currently, no consensus exists regarding use of hemoglobin A1c for diagnosis of diabetes in children. According to [place] Diabetes Association (ADA) guidelines, hemoglobin A1c <7.0% represents optimal control in non- diabetic patients. Different metrics may apply to specific patient populations. Standards of Medical Care in Diabetes(ADA). Performed By: #### 1 0165, 496, 7600 #### [facility] [address], [address] [place] [address] Director Of Billing: Karlo Ardon MD LIPID PANEL, [facility] Cholesterol [Mass/Vol] 129 mg/dL Normal <200 [facility] Comment on above: Order Comment: FASTING:YES FASTING: YES Performed By: #### 1 0165, 496, 7600 #### [facility] [address], [address] [place] [address] Director Of Billing: Karlo Ardon MD Cholesterol in HDL [Mass/Vol] 44 mg/dL Normal > OR = 40 [facility] Comment on above: Order Comment: FASTING:YES FASTING: YES Performed By: #### 1 0165, 496, 7600 #### [facility] [address], [address] [place] [address] Director Of Billing: Karlo Ardon MD Cholesterol in LDL [Mass/Vol] 59 mg/dL Normal [facility] Comment on above: Order Comment: FASTING:YES FASTING: YES Result Comment: Refe rence range: <100 Desirable range <100 mg/dL for primary prevention; <70 mg/dL for patients with CHD or diabetic patients with > or = 2 CHD risk factors. LDL-C is now calculated using the Celestino-Smiley calculation, which is a validated novel method providing better accuracy than the Friedewald equation in the estimation of LDL-C. Celestino GARDUNO et al. JAYLEN. 2013;310(19): 7196-8329 (http://education.Carnegie Speech.Appiterate/faq/SAK618) Performed By: #### 1 0165, 496, 2870 #### [facility] [address], [address] [place] [address] Director Of Billing: Karlo Ardon MD Cholesterol.tota l/Cholesterol in HDL [Mass ratio] 2.9 {ratio} Normal <5.0 [facility] Comment on above: Order Comment: FASTING:YES FASTING: YES Performed By: #### 1 0165, 496, 7600 #### [facility] [address], [address] [place] [address] Director Of Billing: Karlo Ardon MD NON HDL CHOLESTEROL 85 mg/dL (calc) Normal <130 [facility] Comment on above: Order Comment: FASTING:YES FASTING: YES Result Comment: For patients with diabetes plus 1 major ASCVD risk factor, treating to a non-HDL-C goal of <100 mg/dL (LDL-C of <70 mg/dL) is considered a therapeutic option. Performed By: #### 1 0165, 496, 7600 #### [facility] [place] [address] Director Of Billing: Karlo Ardon MD Triglyceride [Mass/Vol] 179 mg/dL High <150 [facility] Comment on above: Order Comment: FASTING:YES FASTING: YES Performed By: #### 1 0165, 496, 7600 #### [facility] [place] [address] Director Of Billing: Karlo Ardon MD [facility] METABOLIC [facility] 06-20-2021 Albumin [Mass/Vol] 4.5 g/dL Normal 3.6-5.1 [facility] Comment on above: Performed By: #### 7600, 5363, 11664 ### # [facility] [place] [address] Director Of Billing: Karlo Ardon MD Albumin/Globulin [Mass ratio] 1.6 {ratio} Normal 1.0-2.5 [facility] Comment on above: Performed By: #### 7600, 5363, 59753 ### # [facility] [place] [address] Director Of Billing: Karlo Ardon MD ALP [Catalytic activity/Vol] 49 U/L Normal 35-144 [facility] Comment on above: Performed By: #### 7600, 5363, 51893 ### # [facility] [place] [address] Director Of Billing: Karlo Ardon MD ALT [Catalytic activity/Vol] 28 U/L Normal 9-46 [facility] Comment on above: Performed By: #### 7600, 5363, 81590 ### # [facility] [address] [place] [address] Director Of Billing: Karlo Ardon MD AST [Catalytic activity/Vol] 35 U/L Normal 10-35 [facility] Comment on above: Performed By: #### 7600, 5363, 14534 ### # [facility] of [place] [address] Director Of Billing: Karlo Ardon MD Bilirubin [Mass/Vol] 0.6 mg/dL Normal 0.2-1.2 [facility] Comment on above: Performed By: #### 7600, 5363, 45426 ### # [facility] of [place] [address] Director Of Billing: Karlo Ardon MD BUN/CREATININE RATIO NOT APPLICABLE Normal 6-22 [facility] Comment on above: Performed By: #### 7600, 5363, 80019 ### # [facility] of [place] [address] Director Of Billing: Karlo Ardon MD Calcium [Mass/Vol] 9.7 mg/dL Normal 8.6-10.3 [facility] Comment on above: Performed By: #### 7600, 5363, 69332 ### # [facility] of [place] [address] Director Of Billing: Karlo Ardon MD Chloride [Moles/Vol] 106 mmol/L Normal 98-110 [facility] Comment on above: Performed By: #### 7600, 5363, 43907 ### # [facility] of [place] [address] Director Of Billing: Karlo Ardon MD CO2 [Moles/Vol] 27 mmol/L Normal 20-32 [facility] Comment on above: Performed By: #### 7600, 5363, 98892 ### # [facility] of [place] [address] Director Of Billing: Karlo Ardon MD Creatinine [Mass/Vol] 0.85 mg/dL Normal 0.70-1.25 [facility] Comment on above: Result Comment: For patients >49 years o f age, the reference limit for Creatinine is approximately 13% higher for people identified as -[place]. Performed By: #### 7 600, 5363, 58304 #### [facility] [address], [address] [place] [address] Director Of Billing: Karlo Ardon MD eGFR NON-AFR. [place] 89 mL/min/1.73m2 Normal > OR = 60 [facility] Comment on above: Performed By: #### 7600, 5363, 38993 ### # [facility] [address], [address] [place] [address] Director Of Billing: Karlo Ardon MD GFR/1.73 sq M.predicted among blacks MDRD (S/P/Bld) [Vol rate/Area] 103 mL/min/{1.73_m2} Normal > OR = 60 [facility] Comment on above: Performed By: #### 7600, 5363, 16923 ### # [facility] [address], [address] [place] [address] Director Of Billing: Karlo Ardon MD Globulin (S) [Mass/Vol] 2.8 g/dL Normal 1.9-3.7 [facility] Comment on above: Performed By: #### 7600, 5363, 01561 ### # [facility] [place] [address] Director Of Billing: Karlo Ardon MD Glucose [Mass/Vol] 113 mg/dL High 65-99 [facility] Comment on above: Result Comment: Fasting reference interval For someone without known diabetes, a glucose value between 100 and 125 mg/dL is consistent with prediabetes and should be confirmed with a follow-up test. Performed By: #### 7 600, 5363, 98558 #### [facility] [address], [address] [place] [address] Director Of Billing: Karlo Ardon MD Potassium [Moles/Vol] 3.8 mmol/L Normal 3.5-5.3 [facility] Comment on above: Performed By: #### 7600, 5363, 19445 ### # [facility] of [address], [address] [place] [address] Director Of Billing: Karlo Ardon MD Protein [Mass/Vol] 7.3 g/dL Normal 6.1-8.1 [facility] Comment on above: Performed By: #### 7600, 5363, 74940 ### # [facility] of [address], [address] [place] [address] Director Of Billing: Karlo Ardon MD Sodium [Moles/Vol] 140 mmol/L Normal 135-146 [facility] Comment on above: Performed By: #### 7600, 5363, 14875 ### # [facility] of [address], [address] [place] [address] Director Of Billing: Karlo Ardon MD Urea nitrogen [Mass/Vol] 15 mg/dL Normal 7-25 [facility] Comment on above: Performed By: #### 7600, 5363, 52006 ### # [facility] of [place] [address] Director Of Billing: Karlo Ardon MD LIPID PANEL, [address] Cholesterol [Mass/Vol] 121 mg/dL Normal <200 [facility] Comment on above: Order Comment: FASTING:YES FASTING: YES Performed By: #### 7 600, 5363, 99675 #### [facility] [place] [address] Director Of Billing: Karlo Ardon MD Cholesterol in HDL [Mass/Vol] 46 mg/dL Normal > OR = 40 [facility] Comment on above: Order Comment: FASTING:YES FASTING: YES Performed By: #### 7 600, 5363, 35291 #### [facility] [place] [address] Director Of Billing: Karlo Ardon MD Cholesterol in LDL [Mass/Vol] 41 mg/dL Normal [facility] Comment on above: Order Comment: FASTING:YES FASTING: YES Result Comment: Refe rence range: <100 Desirable range <100 mg/dL for primary prevention; <70 mg/dL for patients with CHD or diabetic patients with > or = 2 CHD risk factors. LDL-C is now calculated using the Kiesha calculation, which is a validated novel method providing better accuracy than the Friedewald equation in the estimation of LDL-C. Celestino GARDUNO et al. JAYLEN. 2013;310(19): 1378-1192 (http://8th Story.VectorMAX/faq/TOR420) Performed By: #### 7 600, 5363, 34308 #### [facility] [address], [address] [place] [address] Director Of Billing: Karlo Ardon MD Cholesterol.tota l/Cholesterol in HDL [Mass ratio] 2.6 {ratio} Normal <5.0 [facility] Comment on above: Order Comment: FASTING:YES FASTING: YES Performed By: #### 7 600, 5363, 97376 #### [facility] [address], [address] [place] [address] Director Of Billing: Karlo Ardon MD NON HDL CHOLESTEROL 75 mg/dL (calc) Normal <130 [facility] Comment on above: Order Comment: FASTING:YES FASTING: YES Result Comment: For patients with diabetes plus 1 major ASCVD risk factor, treating to a non-HDL-C goal of <100 mg/dL (LDL-C of <70 mg/dL) is considered a therapeutic option. Performed By: #### 7 600, 5363, 39477 #### [facility] [address], [address] [place] [address] Director Of Billing: Karlo Ardon MD Triglyceride [Mass/Vol] 292 mg/dL High <150 [facility] Comment on above: Order Comment: FASTING:YES FASTING: YES Result Comment: If a non-fasting specimen was collected, consider repeat triglyceride testing on a fasting specimen if clinically indicated. Dawit et al. J. of Clin. Lipidol. 2015;9:129-169. Performed By: #### 7 600, 5363, 64311 #### [facility] [address], [address] [place] [address] Director Of Billing: Karlo Ardon MD PSA, TOTALon 06-20-2021 PSA, TOTAL 1.95 ng/mL Normal < OR = 4.00 [facility] Comment on above: Result Comment: The total PSA value from this assay system is standardized against the WHO standard. The test result will be approximately 20% lower when compared to the equimolar-standardized total PSA (Dylon Mati). Comparison of serial PSA results should be interpreted with this fact in mind. This test was performed using the Siemens chemiluminescent method. Values obtained from different assay methods cannot be used interchangeably. PSA levels, regardless of value, should not be interpreted as absolute evidence of the presence or absence of disease. Performed By: #### 7 600, 5363, 43115 #### [facility] [address], [address] [place] [address] Director Of Billing: Karlo Ardon MD Operative Reporton Operative Report MR#: [id number] [facility] Pt. Name: Geensis Cadet Room #: 0C Discharge 02/20/2017 Date: Birthdate: 1950 OPERATIVE REPORTDATE OF SURGERY: 02/20/2017SURGEON: Nba Reynaga M.D.ANESTHESIA:General anesthesia administered by anesthesia team and Levaquin 500 mg IVx1.PREOPERATIVE DIAGNOSIS:OPERATION:Endosco pic retrograde cholangiopancreatography with biliary stone and stentremoval and sphincterotomy.POSTOPERATIV E DIAGNOSIS:PROCEDURE:After obtaining the informed consent, which included the risks, benefits,alternatives, and complications, complications including bleeding,perforation, reaction to medication, pancreatitis, infection, diabetes,surgery, prolonged hospitalization, and remote possibility of , thepatient agreed to proceed with the procedure. The patient was placed inthe semi-prone position. After receiving general anesthesia administeredby anesthesia, after which the Olympus video and side-viewing duodenoscopewas introduced through the mouth down to the esophagus, stomach, then tothe first and second part of the duodenum with no difficulties. Thepreviously placed biliary stent was noted protruding through the papillainto the duodenal lumen. The stent was removed with a snare. With the useof the RX-44 sphincterotome, loaded with a 0.035-inch guidewire, thecommon bile duct was cannulated selectively. Contrast was injected andsmall filling defect was noted at the distal common bile duct. Biliarysphincterotomy was performed. The sphincterotome was then removed over theguidewire. A 9-12 mm injecting below balloon catheter was then advancedover the wire into the common bile duct. The common bile duct was swepttwo times. A few stone fragments were removed from the common bile duct.Final cholangiogram revealed no filling defects within the common bileduct.IMPRESSION: 1) Successful removal of previously placed biliary stent. 2) Removal of common bile duct stones with balloon sweep after performing a sphincterotomy.PLAN:We will see the patient on a p.r.n. basis.Electronically Signed by:Nba Reynaga M.D. 03/24/2017 08:08 A Nba Reynaga M.D.Date Dict: 02/26/2017//Nba Reynaga M.D.Date Trans: 03/01/2017 11:39 A/Long_JN:[id number]/cc: Jimbo Gleason M.D. [facility] [address] [place], [address] [facility] [address] [address] [facility] [address] [facility] ERCPon 02-20-2017 [facility] [place] [address] Patient Name: GENESIS CADET : 1950ex: MAge: Race: OtherMRN: [id number]. Location: 230Patient Status: Date: 02/17/2017 5:00:00 AMCompleted Date: 02/20/2017 01:04 PMRequesting Provider: SHARMILA MARCUS Attending Provider: Report Copy To: Signs & Symptoms: R10.9 Unspecified abdominal pain [id number]: AthenaComments: , , Appointment Date: 02/17/2017 , Appointment Time: 10:30AM , , , Ordering Provider - SHARMILA MARCUS , Exam: ERCPAccession #: [id number] ERCP 02/20/2017 1:04 PM EDT SIGNS AND SYMPTOMS: , , Appointment Date: 02/17/2017 , Appointment Time: 10:30AM , , , Ordering Provider - SHARMILA MARCUS , ERCP with Dr. Reynaga 2:33min fluoro time TECHNIQUE: Intraprocedural fluoroscopy without radiologist supervision or interpretation. Electronically signed by:Elver Justin M.D.. Transcribed by: [email or web address], User Resident: Electronically Signed by: ELVER JUSTIN @ 02/20/2017 01:37 PM Normal [facility] Comment on above: Order Comment: , , Appointment Date: , Appointment Time: 10:30AM , , , Ordering Provider - SHARMILA MARCUS , Encounters Encounter Date Encounter Type Care Provider Facility Start: 06-25-2024 End: 06-25-2024 Refill Jimbo Gleason DO Work Phone: [facility] Comment on above: Essential (primary) hypertension; Hyperlipidemia, unspecified Start: 02-23-2024 End: 02-23-2024 ambulatory JIMBO GLEASON [facility] Start: 02-23-2024 End: 02-23-2024 ambulatory CANNON Viri [facility] Start: 02-04-2024 End: 02-04-2024 ambulatory [facility] Start: 08-13-2023 End: 08-13-2023 ambulatory JIMBO Viri [facility] Start: 08-13-2023 End: 08-13-2023 [facility] Start: 07-25-2022 End: 07-26-[address] WILLOUGHBY Viri YOCASTA Facility: Start: 02-20-2017 End: 02-21-2017 Ambulatory NBA REYNAGA Facility:[facility] Procedures Date Procedure Procedure Detail Performing Clinician Start: 04-22-2024 Adult depression screening assessment Jimbo Gleason DO Work Phone: Start: 02-20-2017 Anesth, upper gi visualize BURT BECKETT Start: 02-20-2017 ENDO CHOLANGIOPANCREATOGRAPH NBA You Start: 02-20-2017 ERCP REMOVE DUCT CALCULI NBA REYNAGA Start: 02-20-2017 ERCP REMOVE FORGN BODY DUCT NBA REYNAGA Plan of Treatment Date Care Activity Detail Author Start: 02-05-2033 DTaP,Tdap and Td Vaccines (3 - Td or Tdap) DTaP,Tdap and Td Vaccines (3 - Td or Tdap) [facility] Start: 04-04-2026 Screening for malign ant neoplasm of colon Colon Cancer Screening 3 Year Cologuard [facility] Start: 04-26-2025 End: 04-26-2025 Patient encounter procedure 04/26/2025 10:00 AM EDT Office Visit [facility] Internal Medicine - Family Medicine [address] [place] [address] [facility] Internal [facility] - [facility] Start: 04-22-2025 Adult BMI Screening Adult [facility] Screen ing [facility] Start: 04-22-2025 Depression Screening [facility] Scre [facility]ing [facility] Start: 04-22-2025 Medicare Annual Well ness Visit Medicare Annual Wellness Visit [facility] Start: 04-19-2025 Fall Risk Screening Fall Risk Screen ing [facility] Start: 02-22-2025 Tobacco Screening Tobacco Screening [facility] Start: 08-13-2024 Adult BMI Follow Up Plan Adult BMI Follow Up Plan [facility] Start: 04-25-2024 COVID-19 Vaccine ( season) COVID-19 Vaccine ( season) [facility] Start: 04-25-2024 Influenza vaccination Influenza Vacc ine [facility] Immunizations Immunization Date Immunization Notes Care Provider Fa cility 05-27-2023 Influenza, High-dose , Quadrivalent Jimbo Furlong DO Work Phone: [facility] 05-27-2023 influenza virus vacc ine, unspecified formulation Jimbo Furlong DO Work Phone: [facility] 02-05-2023 tetanus toxoid, redu robb diphtheria toxoid, and acellular pertussis vaccine, adsorbed Jimbo Furlong DO Work Phone: [facility] 10-30-2022 zoster vaccine recombinant Jimbo Furlong DO Work Phone: [facility] 08-30-2022 zoster vaccine recombinant Jimbo Furlong DO Work Phone: [facility] 08-08-2022 COVID-19, mRNA, LNP- S, PF, 100mcg/0.5mL Dose Jimbo Furlong DO Work Phone: [facility] 05-29-2022 Influenza, High-dose , Quadrivalent Jimbo Furlong DO Work Phone: [facility] 11-24-2021 COVID-19, mRNA, LNP- S, PF, 100mcg/0.5mL Dose Jimbo Furlong DO Work Phone: [facility] 11-24-2021 SARS-COV-2 (COVID-19 ) Vaccine, Unspecified Jimbo Furlong DO Work Phone: [facility] 06-22-2021 COVID-19, mRNA, LNP- S, PF, 100mcg/0.5mL Dose Jimbo Furlong DO Work Phone: [facility] 06-22-2021 SARS-COV-2 (COVID-19 ) Vaccine, Unspecified Jimbo Furlong DO Work Phone: [facility] 06-12-2021 influenza, seasonal, injectable Jimbo Furlong DO Work Phone: [facility] 06-04-2021 Influenza, High-dose , Quadrivalent Jimbo Furlong DO Work Phone: [facility] 06-04-2021 pneumococcal polysaccharide vaccine, 23 valent Jimbo Furlong DO Work Phone: [facility] 11-15-2020 COVID-19, mRNA, LNP- S, PF, 100mcg/0.5mL Dose Jimbo Furlong DO Work Phone: [facility] 11-15-2020 SARS-COV-2 (COVID-19 ) Vaccine, Unspecified Jimbo Furlong DO Work Phone: [facility] 10-19-2020 COVID-19, mRNA, LNP- S, PF, 100mcg/0.5mL Dose Jimbo Furlong DO Work Phone: [facility] 10-19-2020 SARS-COV-2 (COVID-19 ) Vaccine, Unspecified Jimbo Furlong DO Work Phone: [facility] 05-09-2020 influenza, seasonal, injectable Jimbo Furlong DO Work Phone: [facility] 04-25-2020 influenza, injectabl e, quadrivalent, contains preservative Jimbo Furlong DO Work Phone: [facility] 06-25-2019 influenza, seasonal, injectable Jimbo Furlong DO Work Phone: [facility] 06-07-2019 influenza, seasonal, injectable Jimbo Furlong DO Work Phone: [facility] 05-28-2018 influenza, high dose seasonal, preservative-free Jimbo Furlong DO Work Phone: [facility] 06-11-2017 influenza virus vacc ine, unspecified formulation Jimbo Furlong DO Work Phone: [facility] 06-11-2016 pneumococcal conjuga te vaccine, 13 valent Jmibo Furlong DO Work Phone: [facility] 06-08-2016 influenza virus vacc ine, unspecified formulation Jimbo Furlong DO Work Phone: [facility] 06-21-2013 pneumococcal conjuga te vaccine, 13 valent Jimbo Furlong DO Work Phone: [facility] 09-19-2008 tetanus toxoid, redu robb diphtheria toxoid, and acellular pertussis vaccine, adsorbed Jimbo Furlong DO Work Phone: [facility] Payers Date Payer Category Payer Managed Care Other (unspecified) [facility] [id number] 2020 Unknown [id number] 2016 Medicare MEDICARE [id number] 1959 Medicare [id number] 1959 Unknown [id number] 1951 Unknown [id number] 1951 Unknown [id number] 1951 Unknown [id number] 1951 Unknown [id number] 1951 Unknown [id number] Medicare [id number] Social History Date Type Detail Facility [facility]: [facility]05[facility]2022 [facility] Start: 08-05-2022 Tobacco use and exposure Smoke less tobacco non-user [facility] Start: 02-23-2024 Alcoholic beverage intake Curr ent drinker of alcohol (finding) [facility] Start: 10-29-2022 End: 08-13-2023 History of Social function [facility] Start: 10-29-2022 End: 08-13-2023 [facility] Utilities [facility] Has the [employer], or [employer] threatened to shut off services in your home in past 12Mo No [facility] Do you belong to any clubs or organizations such as presybeterian groups, unions, fraternal or athletic groups, or school groups? Yes [facility] Are you now , , , , never or living with a partner? [facility] How often to you hav e a drink containing alcohol? 2-3 time sa week [facility] How many standard dr inks containing alcohol do you have on a typical day? 1 or 2 [facility] How often do you hav e 6 or more drinks on 1 occasion? Never [facility] How hard is it for y ou to pay for the very basics like food, housing, medical care, and heating Not hard at all [facility] Do you feel stress - tense, restless, nervous, or anxious, or unable to sleep at night because your mind is troubled all the time - these days [OSQ] Not at all [facility] Start: 1950 Sex assigned at Not on file [facility] [employer] [facility] Start: 03-28-2015 Sex Male (finding) [facility] Progress note 02-04-2024 Note Date & Type Note Facility 02-04-2024 Note [facility] Cardiology - [facility] Ximena Cadet is a 73 y.o. year old male patient being seen for No chief complaint on file. HPI The patient is 72-year-old male with history of CAD, s/p CABG 2011, atrial fibrillation, s/p Maze procedure 2011, history of AV preston reentrant supraventricular tachycardia, s/p slow pathway ablation in 2011, hypertension, and hyperlipidemia Patient is here today for follow-up visit. He states that he has been doing well. He denies any chest pain or shortness of breath at rest or with exertion. He denies orthopnea or paroxysmal nocturnal dyspnea or dizziness or palpitations or legs edema or leg discomfort on exertion. He states that he exercises on stationary bicycle 90 minutes every day. He denies smoking or illicit drugs. He drinks alcohol occasionally. He was diagnosed recently with borderline diabetes and he was started on metformin in addition to low calorie low-carb diet ROS All systems were reviewed and they were within normal limits except for any positive findings noted above in the history Past Medical History: Diagnosis Date Atrial fib/flutter, transient (CMS/HCC) CAD (coronary artery disease) HLD (hyperlipidemia) HTN (hypertension) SVT (supraventricular tachycardia) (CMS/HCC) Past Surgical History: Procedure Laterality Date ABLATION OF DYSRHYTHMIC FOCUS CORONARY ARTERY BYPASS GRAFT PAUL-MAZE MICROWAVE ABLATION No family history on file. Social History Tobacco Use Smoking status: Never Smokeless tobacco: Never Allergies Allergies Allergen Reactions Oxycodone Hcl Itching Oxycodone-Acetaminophen Rash Medications Current Outpatient Medications: aspirin 81 mg EC tablet, Take 81 mg by mouth in the morning., Disp: , Rfl: hydroCHLOROthiazide (HYDRODiuril) 12.5 mg tablet, Take 12.5 mg by mouth in the morning., Disp: , Rfl: latanoprost (Xalatan) 0.005 % ophthalmic solution, Instill 1 (ONE) DROP IN BOTH EYES IN THE EVENING DIRECTED, Disp: , Rfl: lisinopril 40 mg tablet, Take 40 mg by mouth in the morning., Disp: , Rfl: metFORMIN (Glucophage) 500 mg tablet, Take 500 mg by mouth with breakfast., Disp: , Rfl: metoprolol tartrate (Lopressor) 25 mg tablet, Take 25 mg by mouth in the morning and at bedtime., Disp: , Rfl: nitroglycerin (Nitrostat) 0.4 mg SL tablet, DISSOLVE 1 TABLET UNDER THE TONGUE NEEDED FOR CHEST PAIN- MAY REPEAT EVERY 5 MINUTES IF NEEDED ( MAX 3 DOSES.- IF NO RELIEF CALL 911), Disp: 90 tablet, Rfl: 0 omeprazole (PriLOSEC) [address] capsule, 1 capsule., Disp: , Rfl: rosuvastatin (Crestor) 40 mg tablet, Take 1 tablet (40 mg) by mouth in the morning., Disp: 30 tablet, Rfl: 11 Objective Visit Vitals BP 136/74 (BP Location: Left arm, Patient Position: Sitting) Pulse 50 Ht 1.676 m (5' 6 ) Wt 85.3 kg (188 lb) SpO2 96% BMI 30.34 kg/m??? Smoking Status Never BSA 1.99 m??? Physical exam: GENERAL: alert and oriented x3, well developed, in no acute distress. HEAD: atraumatic, normocephalic. EYES: AMY, EOMI. NECK: trachea midline, no JVD present, no carotid bruits present. CARDIAC: S1, S2 present. RRR. No murmur, rubs, or gallops. RESPIRATORY: CTAB, no increased effort of breathing, no rales, rhonchi, or wheezing. ABDOMEN: soft, nontender, nondistended. EXTREMITIES: no lower extremity edema, peripheral pulses are 2+ bilaterally. No rash/skin discoloration present. NEURO: strength/sensation equal and symmetric in bilateral upper and lower extremities. PSYCH: appropriate mood, affect, and judgement. Recent Labs 08/13/2023 Cholesterol 116, triglyceride 172, HDL 42, LDL 40 Sodium 139, potassium 4.1, BUN 20, creatinine 0.88, Glucose 103, calcium 10, GFR above 90 Total protein 8, albumin 4.7, alk phos 54, AST 31, ALT 24, total bilirubin Imaging and other tests EK04/23/2021 showed sinus bradycardia, heart rate 44 bpm, otherwise no EKG abnormalities EKG 02/03/2017 showed sinus bradycardia, heart rate 57 bpm, cannot exclude inferior infarct age indeterminant Cardiac cath:05/15/2012 CABG 05/28/2012 EP Procedure 06/04/2012 Assessment/Plan: CAD, s/p CABG 05/28/2012 3 grafts SNYDER to LAD, SVG to PDA, radial artery to OM 2, he is on aspirin, Plavix, simvastatin, and metoprolol A-fib, s/p maze procedure 05/28/2012, maintaining normal sinus rhythm, he is on aspirin and Plavix History of AV preston reentrant SVT, 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 Plan: Continue current medications except Plavix. No indication to continue Plavix and no benefit at this point. Check fasting lipids and LFTs Check BMP Continue with the exercise program and current diet Patient will call to verify which statin he is on when he goes home Follow-up in 6 months Norah Allen MD, [facility] Progress note 02-04-2024 Note Date & Type Note Facility 02-04-2024 Note Patient here for 1 y ear follow up CAD, hypertension, PAF, and hyperlipidemia. Had routine labs w/ lipid panel in Jul 2023. He denies chest pain, SOB, palpitations, and lightheadedness/syncope. Review of Systems Musculoskeletal: Positive for joint pain and myalgias. All other systems reviewed and are negative. [facility] Evaluation note Note Date & Type Note Facility Evaluation note Diagnosis Essential (primary) hypertension Unspecified essential hypertension Hyperlipidemia, unspecified documented in this encounter [facility] Instructions Note Date & Type Note Facility Instructions Not on filedocumented in this en counter [facility] Summary Purpose Family History No Family History Records FoundNo Family History Records FoundNo Family History Records FoundNo Family History Records FoundNo Family History Records FoundNo Family History Records Found Advance Directives No Advanced Directives Records FoundNo Advanced Directives Records FoundNo Advanced Directives Records FoundNo Advanced Directives Records FoundNo Advanced Directives Records FoundNo Advanced Directives Records Found Additional Source Comments (unrecognized sect ion and content) No Status Records FoundNo Status Records FoundNo Status Records FoundNo Status Records FoundNo Status Records FoundNo Status Records Found INFORMATION SOURCE (unrecogn ized section and content) DATE CREATED AUTHOR 02/18/2018 [facility] DATE CREATED AUTHOR AUTHOR'S ORGANIZ ATION 01/31/2022 [facility] DATE CREATED AUTHOR AUTHOR'S ORGANIZ ATION 07/27/2022 [facility] DATE CREATED AUTHOR AUTHOR'S ORGANIZ ATION 02/14/2024 [facility] DATE CREATED AUTHOR AUTHOR'S ORGANIZ ATION 02/23/2024 [facility] DATE CREATED AUTHOR AUTHOR'S ORGANIZ ATION 02/24/2024 [facility] Reason for Visit (unrecogniz ed section and content) Reason Comments Med Refill Care Teams (unrecognized sec tion and content) [employer]yl[employer]er Relationship Specialty Start Date End Date Jimbo Gleason DO [address] [place] [address] PCP - General Family Medicine 06/27/22 FOR RECORDS PERTAINING TO PATIENTS WHO ARE OR HAVE BEEN ENROLLED IN A CHEMICAL DEPENDENCY/SUBSTANCEABUSE PROGRAM, SOME INFORMATION MAY BE OMITTED. This clinical summary was aggregated from multiple sources. Caution should be exercised in using it in the provision of clinical care. This summary normalizes information from multiple sources, and as a consequence, information in this document may materially change the coding, format and clinical context of patient data. In addition, data may be omitted in some cases. CLINICAL DECISIONS SHOULD BE BASED ON THE PRIMARY CLINICAL RECORDS. [facility] [employer] [facility]. provides no warranty or guarantee of the accuracy or completeness of information in this document.
== END 2024-08-10 09:50 | disposition home or self-care (01) ==
PROVIDERS: PCP Family Medicine; Visit Provider Internal Medicine Cardiovascular Disease
DX: I25.10 Atherosclerotic heart disease of native coronary artery without angina pectoris (principal); I48.0 Paroxysmal atrial fibrillation; I47.10 Supraventricular tachycardia, unspecified; E78.5 Hyperlipidemia, unspecified
CPT/HCPCS: 93306

== ENCOUNTER 2025-02-26 08:36 | Outpatient (OUT) | payer MEDICARE, OTHER, SELFPAY ==
--- OUTSIDE RECORDS SUMMARY | 2025-02-23 08:30 | XMS_ITS | Encounter Summary ---
Author Organization [facility] tem Address [id number] [address] [place] [address] Care Team Providers [employer] Professional Name Role Phone Jimbo Gleason DO Primary Care Provider + [phone] Reason for Visit * Reason Comments Hyperlipidemia Hypertension Cv, left hip pain Encounter Details Date Type Department Care Team (Late st Contact Info) Description 02/23/2025 8:30 AM EDT Office Visit [facility] Internal Medicine - Family Medicine [address] [place] [address] Jimbo Gleason DO [address] [facility], [place] [address] Essential hypertension (Primary Dx); Mixed hyperlipidemia; Impaired fasting glucose; Left hip pain; Paroxysmal atrial fibrillation (CMS-HCC); SVT (supraventricular tachycardia); Overweight (BMI 25.0-29.9); Encounter for screening for malignant neoplasm of prostate Social History Tobacco Use Types Packs/Day Years Used Date Smoking Tobacco: Never Smokeless Tobacco: Never Alcohol Use Standard Drinks/Week Comments Yes 0 (1 standard drink = 0.6 oz pur e alcohol) [facility] Utilities Answer Date Recorded In the past 12 months has [employer], gas, oil, or water company threatened to shut off services in your home? No 08/13/2023 Social Connection and Isolation Panel [NHANES] A nswer Date Recorded In a typical week, how many times do you talk on the phone with family, friends, or neighbors? Never 10/30/19 How often do you get togethe r with friends or relatives? Once a week 10/29/2022 How often do you attend chur ch or oriental orthodox services? 1 to 4 times per year 10/29/2022 Do you belong to any clubs o r organizations such as gnosticist groups, unions, fraternal or athletic groups, or school groups? Yes 10/29/2022 How often do you attend meet ings of the clubs or organizations you belong to? Never 10/29/2022 Are you , , di vorced, , never , or living with a partner? 10/29/2022 AUDIT-C Answer Date Recorded Q1: How often do you have a drink containing alc ohol? 2-3 times a week 10/29/2022 Q2: How many drinks containi ng alcohol do you have on a typical day when you are drinking? 1 or 2 10/29/2022 Q3: How often do you have si x or more drinks on one occasion? Never 10/29/2022 Overall Financial Resource Strain (CARDIA) Answe r Date Recorded How hard is it for you to pa y for the very basics like food, housing, medical care, and heating? Not hard at all 02/21/2025 PHQ-2 Answer Date Recorded Total Score 0 02/23/2025 [facility] [place] of Occupat ional Health - Occupational Stress Questionnaire Answer Date Recorded Do you feel stress - tense, restless, nervous, or anxious, or unable to sleep at night because your mind is troubled all the time - these days? Not at all 10/29/2022 Exercise Vital Sign Answer Date Recorde d On average, how many days pe r week do you engage in moderate to strenuous exercise (like a brisk walk)? 5 days 10/29/2022 On average, how many minutes do you engage in exercise at this level? 90 min 10/29/2022 PRAPARE - Transportation Answer Date Re corded In the past 12 months, has l ack of transportation kept you from medical appointments or from getting medications? No 01/25 In the past 12 months, has l ack of transportation kept you from meetings, work, or from getting things needed for daily living? No 02/21/2025 Housing Instability Answer Date Recorde d Are you worried or concerned that in the next two months you may not have stable housing that you own, rent or stay in as a part of a household? No 02/21/2025 Childcare Answer Date Recorded Do problems getting child ca re make it difficult for you to work or study? No 10/29/2022 Employment Answer Date Recorded Do you need help finding a [facility] career center and/or a training program? No 10/29/2022 Hunger Screening Answer Date Recorded Within the past 12 months we worried whether our food would run out before we got money to buy more. Never True 02/21/2025 Within the past 12 months th e food we bought just didn't last and we didn't have money to get more. Never True 02/21/2025 Purpose - Life Answer Date Recorded I have a purpose and direction in my life. Stron gly Agree 10/29/2022 Sex and Gender Information Value Date Recorded Sex Assigned at Not on file Legal Sex Male 7:17 PM EDT Gender Identity Not on file Sexual Orientation Not on file documented as of this encounter Last Filed Vital Signs Vital Sign Reading Time Taken Comments Blood Pressure 140/70 02/23/2025 8:34 AM EDT Pulse 55 02/23/2025 8:34 AM EDT Temperature 36.6 C (97.9 F) 02/23/2025 8:34 AM EDT Respiratory Rate 20 02/23/2025 8:34 AM EDT Oxygen Saturation 97% 02/23/2025 8:34 AM EDT Inhaled Oxygen Concentration - - Weight 83.5 kg (184 lb) 02/23/2025 8:34 AM EDT Height 167.6 cm (5' 5.98 ) 02/23/2025 8:34 AM ED T Body Mass Index 29.71 02/23/2025 8:34 AM EDT documented in this encounter Progress Notes * Jimbo Gleason, DO - 02/23/2025 8:30 AM EDT Images from the original note were not included. Subjective Patient ID: Michele Lr is a 74 y.o. male. Girish presents today for a CV recheck. He is taking his medications. He does not have any side effects. He is seeing the veterinary medicine scientist. He last saw her in July. She ordered an echocardiogram and took him off his blood thinner. He has had left hip pain for years and it is getting worse. Pain wakes him up at night. Hard to getshoes on. It sometimes feels like it is going to give out. It keeps him from exercising. It is hardto mow his lawn and he was thinking about getting a riding mower because it hurts so bad. He has tried Tylenol for it but it does not work that well. He is wondering if there is something else he could try. He has never had any x-rays done. Hyperlipidemia Hypertension The following portions of the patient's history were reviewed and updated as appropriate: allergies, current medications, past family history, past medical history, past social history, past surgicalhistory, problem list, and medication reconciliation was completed including current medication andpost discharge medication. Review of Systems Constitutional: Negative. Eyes: Negative. Cardiovascular: Negative. Gastrointestinal: Negative. Musculoskeletal: Positive for arthralgias. Objective Physical Exam Vitals reviewed. Constitutional: General: He is not in acute distress. Appearance: He is overweight. He is not ill-appearing. HENT: Head: Normocephalic. Eyes: General: No scleral icterus. Extraocular Movements: Extraocular movements intact. Conjunctiva/sclera: Conjunctivae normal. Neck: Vascular: No carotid bruit. Cardiovascular: Rate and Rhythm: Normal rate and regular rhythm. Pulses: Normal pulses. Heart sounds: Normal heart sounds. No murmur heard. Pulmonary: Effort: Pulmonary effort is normal. No respiratory distress. Breath sounds: No wheezing, rhonchi or rales. Abdominal: General: Bowel sounds are normal. Palpations: Abdomen is soft. Tenderness: There is no abdominal tenderness. Musculoskeletal: Cervical back: Neck supple. Left hip: Tenderness, bony tenderness and crepitus present. No deformity or lacerations. Decreased range of motion. Right lower leg: No edema. Left lower leg: No edema. Legs: Lymphadenopathy: Cervical: No cervical adenopathy. Neurological: General: No focal deficit present. Mental Status: He is alert and oriented to person, place, and time. Psychiatric: Attention and Perception: Attention and perception normal. Mood and Affect: Mood and affect normal. Speech: Speech normal. Behavior: Behavior normal. Behavior is cooperative. Thought Content: Thought content normal. Cognition and Memory: Cognition and memory normal. Judgment: Judgment normal. Assessment/Plan Michele was seen today for hyperlipidemia and hypertension. Diagnoses and all orders for this visit: Essential hypertension - Comprehensive metabolic panel; Future - Comprehensive metabolic panel Blood pressure borderline high. Check CMP. Continue current regimen Mixed hyperlipidemia - Lipid profile; Future - Lipid profile Check lipid panel Impaired fasting glucose - Hemoglobin A1c; Future - Hemoglobin A1c Check A1c to see if he has developed diabetes Left hip pain - X-ray hip left 2-3 views with or without pelvis; Future I suspect osteoarthritis of the left hip. Does have some pain over the greater trochanter area as well. Check x-ray of hip. Consider pain management or referral to orthopedic surgeon for consultation. May qualify for handicap parking placard. We did discuss that it is interfering with his quality of life and that is usually when we need to take action. We will try meloxicam 15 mg daily for pain as needed Paroxysmal atrial fibrillation (CMS-HCC) Seems to be in normal sinus rhythm and no recent exacerbations. Continue beta- nati. Anticoagulation was stopped by Cardiology. SVT (supraventricular tachycardia) Stable. Overweight (BMI 25.0-29.9) - Hemoglobin A1c; Future - Hemoglobin A1c Check A1c to see if he has developed diabetes. He is overweight. He would benefit from weight loss. Patient noted to have elevated BMI and the following intervention(s) were applied: encouragement toexercise and prescribed diet education. Encounter for screening for malignant neoplasm of prostate - Prostatic specific antigen screen; Future - Prostatic specific antigen screen Check PSA to screen for prostate cancer. He would pursue further evaluation and treatment if needed. Other orders - meloxicam (MOBIC) 15 mg tablet; Take 1 tablet (15 mg total) by mouth daily as needed for pain. With food documented in this encounter Plan of Treatment Upcoming Encounters Date Type Department Care Team (Late st Contact Info) Description 04/26/2025 10:00 AM EDT Office Visit [facility] Internal Medicine - Family Medicine [address] [place] [address] 02/22/2026 9:00 AM EDT Office Visit [facility] Internal Medicine - Family Medicine [address] [place] [address] Jimbo Gleason DO [address] [facility], [place] [address] Scheduled Orders Name Type Priority Associated Diagnoses Orde r Schedule X-ray hip left 2-3 views with or without pelvis Imaging Routine Left hip pain Expected: 02/23/2025, Expires: 02/23/2026 documented as of this encounter Procedures Procedure Name Priority Date/Time Associated Diagnosis Comments PROSTATIC SPECIFIC ANTIGEN SCREEN Routine 02/23/2025 9:06 AM EDT Encounter for screening for malignant neoplasm of prostate HEMOGLOBIN A1C Routine 02/23/2025 9:06 AM EDT Impaired fasting glucose Overweight (BMI 25.0-29.9) LIPID PROFILE Routine 02/23/2025 9:06 AM EDT Mixed hyperlipidemia COMPREHENSIVE METABOLIC PANEL Routine 02/23/2025 9:06 AM EDT Essential hypertension documented in this encounter Results * Prostatic specific antigen screen (02/23/2025 9:06 AM EDT) PROSTATIC SPEC ANT 3.00 0.00 - 4.00 ng/mL 02/23/2025 6:52 PM EDT [facility] Comment: The method used for this test is Dylon Aguila DXI chemiluminescent immunoassay. Values obtained by different assay methods cannot be used interchangeably. Blood Venous blood / Unknown 02/23/2025 9:06 AM EDT 02/23/2025 9:06 AM EDT us Jimbo Gleason DO LAB BLOOD ORDERABLES Final R esult [facility] [address] [place] [address], [place] [phone] * (ABNORMAL) Lipid profile (02/23/2025 9:06 AM EDT) CHOLESTEROL 120(L) 150 - 200 mg/dL 02/23/2025 6:49 PM EDT [facility] TRIGLYCERIDE 183(H) 27 - 150 mg/dL 02/23/2025 6:49 PM EDT [facility] HDL CHOLESTEROL 42 >39 mg/dL 6:49 PM EDT [facility] Comment: HDL <40 mg/dL - High Risk HDL > or = 40mg/dL- Desirable HDL >60 mg/dL - Negative Risk LDL (CALC) 41 <130 mg/dL 02/23/2025 6:49 PM EDT [facility] Comment: LDL <100 mg/dL - Desirable LDL >160 mg/dL - High Risk CHOLESTEROL:HDL 2.9 1.0 - 5.0 6:49 PM EDT [facility] VERY LOW LIPOPROTEIN 37(H) 0 - 30 mg/dL 02/23/2025 6:49 PM EDT [facility] Blood Venous blood / Unknown 02/23/2025 9:06 AM EDT 02/23/2025 9:06 AM EDT us Jimbo Gleason DO LAB BLOOD ORDERABLES Final R esult [facility] [address] [place] [address], [place] [phone] * (ABNORMAL) Comprehensive metabolic panel (02/23/2025 9:06 AM EDT) SODIUM 141 134 - 146 mmol/L 02/23/2025 6:49 PM EDT [facility] POTASSIUM 4.5 3.5 - 5.0 mmol/L 02/23/2025 6:49 PM EDT [facility] CHLORIDE 106 98 - 109 mmol/L 02/23/2025 6:49 PM EDT [facility] CARBON DIOXIDE 26 22 - 32 mmol/L 02/23/2025 6:49 PM EDT [facility] ANION GAP 9 5 - 15 mmol/L 02/23/2025 6:49 PM EDT [facility] BLOOD UREA NITROGEN 24 5 - 27 mg/dL 02/23/2025 6:49 PM EDT [facility] CREATININE 0.89 0.60 - 1.30 mg/dL 02/23/2025 6:49 PM EDT [facility] Comment:METHOD TRACEABLE TO IDNY STANDARD GLUCOSE 100(H) 65 - 99 mg/dL 02/23/2025 6:49 PM EDT [facility] CALCIUM 9.7 8.5 - 10.5 mg/dL 02/23/2025 6:49 PM EDT [facility] TOTAL PROTEIN 7.8 6.0 - 8.0 g/dL 02/23/2025 6:49 PM EDT [facility] ALBUMIN 4.7 3.2 - 5.3 g/dL 02/23/2025 6:49 PM EDT [facility] ALKALINE PHOSPHATASE 55 39 - 130 U/L 02/23/2025 6:49 PM EDT [facility] AST 25 <=41 U/L 02/23/2025 6:49 PM EDT [facility] ALT 26 <=40 U/L 02/23/2025 6:49 PM EDT [facility] BILIRUBIN,TOTAL 0.8 0.3 - 1.2 mg/dL 02/23/2025 6:49 PM EDT [facility] EGFR Non-Race Dependent 90 >=60 ml/min/1.7 3sq.m 02/23/2025 6:49 PM EDT [facility] Comment: Reported eGFR is based on the CKD-EPI 2020 equation that does not use a race coefficient. Blood Venous blood / Unknown 02/23/2025 9:06 AM EDT 02/23/2025 9:06 AM EDT us Jimbo Gleason DO LAB BLOOD ORDERABLES Final R esult [facility] [address] [place] [address], [place] [phone] * (ABNORMAL) Hemoglobin A1c (02/23/2025 9:06 AM EDT) HEMOGLOBIN A1C 6.0(H) 4.4 - 5.6 % 02/23/2025 7:15 PM EDT [facility] Comment: ADA Guidelines Result HgbA1c Normal : less than 5.7 % Prediabetes : 5.7 % to 6.4 % Diabetes : > 6.4 % Use with caution in patients with abnormal hemoglobin variants as the half-life of red blood cells and in vivo glycation rates are affected. EST. AVERAGE GLUCOSE 126 mg/dL 02/23/2025 7:15 PM EDT [facility] Blood Venous blood / Unknown 02/23/2025 9:06 AM EDT 02/23/2025 9:06 AM EDT Jimbo Gleason DO LAB BLOOD ORDERABLES Final R esult [facility] [address] [place] [address], documented in this encounter Visit Diagnoses Diagnosis Essential hypertension- Primary Unspecified essential hypertension Mixed hyperlipidemia Impaired fasting glucose Left hip pain Pain in joint, pelvic region and thigh Paroxysmal atrial fibrillation (CMS-HCC) Atrial fibrillation SVT (supraventricular tachycardia) Other specified cardiac dysrhythmias Overweight (BMI 25.0-29.9) Overweight Encounter for screening for malignant neoplasm of prostate documented in this encounter Additional Health Concerns Assessment Noted Time PHQ-9 Depression Total Score: 0 02/24/20 25 8:33 AM EDT A Body Mass Index follow-up plan has been documented for the patient 02/23/2025 10:20 AM EDT documented as of this encounter Care Teams [employer] Professional Relationship Specialty Start Date End Date Jimbo Gleason DO [address] [facility] [facility] [place] [address] PCP - General Family Medicine 06/27/22 documented as of this encounter
--- OUTSIDE RECORDS SUMMARY | 2025-02-26 08:40 | XMS_ITS | CCD ---
Author Organization [facility] CliniSyny Care Team Providers Care Pattern Technician Name Role Phone NAWRAS, ALI T Unavailable Unavailable NAWRAS, ALI T Unavailable Unavailable LEONID, AMOR Unavailable Unavailable FURLONG, JIMBO Unavailable Unavailable NH Unavailable Unavailable NAWRAS, ALI T Unavailable Unavailable [facility] Unavailable Unavailable LANCSAIAD JimenezEN Unavailable Unavailable FURLONG, DR JIMBO Meredith Attending Unavailable FURLONG, DR JIMBO Meredith Consulting Unavailable FURLONG, DR JIMBO Meredith Primary Care Unavailable FURLONG, DR JIMBO Meredith Admitting Unavailable FURLONG, JIMBO Meredith Referring Unavailable FURLONG, JIMBO Meredith Primary Care Unavailable FURLONG, JIMBO Meredith Referring Unavailable FURLONG, JIMBO Meredith Primary Care Unavailable NORAH ALLEN Attending Unavailable NORAH ALLEN Attending Unavailable Maxxlong Jimbo SANTACRUZ Primary Care Provider Jimbo Gleason DO Primary Care Provider [phone] JIMBO GLEASON Referring Unavailable FURLODELMER, JIMBO Meredith Primary Care Unavailable FURLODELMER, JIMBO Meredith Attending Unavailable FURLONGJIMBO Referring Unavailable FURLONGJIMBO Primary Care Unavailable Allergies Allergy Classification Reported Allergen(s) Allergy Type Date of Onset Reaction(s) Facility (2 sources) oxyCODONE Drug Allergy 11-21-2016 [facility] Repository (12 sources) Acetaminophen / oxyCODONE; Translations: [OXYCODONE-ACETAMI NOPHEN] Drug Allergy 08-05-2022 Rash [facility] Repository (12 sources) oxyCODONE; Translations: [OXYCODONE HCL] Drug Allergy 08-05-2022 Itching [facility] Repository Medications Current Medications Medication Drug Class(es) Dates Sig (Normalized) Sig (Original) Aspirin (10 sources) Platelet Aggregation Inhibitor, Nonsteroidal Anti-inflammatory Drug aspirin 81 mg cap jaime Active take 1 tablet by mouth once nasrin y aspirin 81 mg capsule 1 tablet Orally Once a day Active clopidogrel 75 mg oral tablet (5 sources) P2Y12 Platelet Inhibitor Start: 12-27-2022 End: 02-23-2024 take 1 tablet by mouth once daily clopidogreL (PLAVIX) 75 mg tablet Indications: Atherosclerotic heart disease of [place] coronary artery without angina pectoris take 1 tablet by mouth daily 90 tablet 3 12/22/2023 02/23/2024 Discontinued (Discontinued by another clinician) hydroCHLOROthiazide 12.5 mg oral tablet (12 sources) Thiazide Diuretic Start: 06-24-2023 End: 12-23-2024 take 1 tablet by mouth once daily hydroCHLOROthiazide (HYDRODIURIL) 12.5 mg tablet Indications: Essential (primary) hypertension TAKE 1 TABLET BY MOUTH DAILY 90 tablet 1 12/23/2024 Active latanoprost 0.05 mg/ml ophthalmic solution (10 sources) Prostaglandin Analog latanoprost (XALATAN ) 0.005 % ophthalmic solution Active take 1 drop(s) into the eye(s) in the evening latanoprost (XALATAN) 0.005 % ophthalmic solution latanoprost 0.005 % eye drops Instill 1 (ONE) DROP IN BOTH EYES IN THE EVENING DIRECTED Active lisinopril 40 mg oral tablet (11 sources) Angiotensin Converting Enzyme Inhibitor Start: 06-24-2023 End: 06-25-2024 take 1 tablet by mouth once daily lisinopriL (PRINIVIL,ZESTRIL) 40 mg tablet Indications: Essential (primary) hypertension TAKE 1 TABLET BY MOUTH DAILY 90 tablet 3 06/25/2024 Active meloxicam 15 mg oral tablet (1 source) Nonsteroidal Anti-inflammatory Drug Start: 02-23-2025 take 1 tablet by mouth once daily as needed for pain meloxicam (MOBIC) 15 mg tablet Take 1 tablet (15 mg total) by mouth daily as needed for pain. With food 30 tablet 5 02/23/2025 Active metFORMIN hydrochloride 500 mg oral tablet (13 sources) Biguanide Start: 02-07-2023 End: 09-17-2024 take 1 tablet by mouth once daily at breakfast metFORMIN (GLUCOPHAGE) 500 mg tablet TAKE 1 TABLET BY MOUTH DAILY WITH BREAKFAST 90 tablet 1 09/17/2024 Active metoprolol tartrate 25 mg oral tablet (12 sources) beta-Adrenergic Shanta Start: 04-03-2023 End: 03-31-2024 take 1 tablet by mouth twice daily metoprolol tartrate (LOPRESSOR) 25 mg tablet Indications: Essential (primary) hypertension take 1 tablet by mouth twice daily 180 tablet 3 03/31/2024 Active multivit with minerals/lutein (MULTIVITAMIN 50 PLUS ORAL) (4 sources) End: 02-23-2024 multivit with minerals/lutein (MULTIVITAMIN 50 PLUS ORAL) multivitamin 02/23/2024 Discontinued (Therapy completed) multivit with mi nerals/lutein (MULTIVITAMIN 50 PLUS ORAL) multivitamin Active multivit with mi nerals/lutein (MULTIVITAMIN 50 PLUS ORAL) multivitamin 0 Active guoxojdnexnm-yjbcnghx-bigwvv (MULTIVITAMIN 50 PLUS) tablet (7 sources) multivitamin-min erals-lutein (MULTIVITAMIN 50 PLUS) tablet Take 1 tablet by mouth in the morning. Active nitroglycerin 0.4 mg subling ual tablet (10 sources) Nitrate Vasodilator St ar t: nitroglycerin (NITROSTAT) 0. 4 MG SL tablet 06/26/2022 Active omega 0-uez-fyh-fish oil 1,0 00 mg (250 mg-750 mg)/5 mL liquid (10 sources) take 1 capsule by mouth at bedtime omega 7-opr-zwl-fish oil 1,000 mg (250 mg-750 mg)/5 mL liquid Take 1 capsule by mouth in the morning and at bedtime. Active take 1 capsule by mouth at bedti me omega 5-bvo-qmt-fish oil 1,000 mg (250 mg- 750 mg)/5 mL liquid Take 1 capsule by mouth in the morning and at bedtime. 0 Active rosuvastatin calcium 40 mg oral tablet (11 sources) HMG-CoA Reductase Inhibitor Start: 06-24-2023 End: 06-25-2024 take 1 tablet by mouth once daily rosuvastatin (CRESTOR) 40 mg tablet Indications: Hyperlipidemia, unspecified TAKE 1 TABLET BY MOUTH DAILY 90 tablet 3 06/25/2024 Active Problems Active Problems Problem Classification Problem Date Documented Date Episodic/Chronic Cardiac dysrhythmias (20 sources) Paroxysmal atrial fibrillation; Translations: [Paroxysmal atrial fibrillation] Onset: 06-25-2012 Chronic Coronary atherosclerosis and other heart disease (20 sources) Atherosclerotic heart disease of [place] coronary artery without angina pectoris; Translations: [Coronary atherosclerosis] Onset: 05-18-2012 Chronic Coronary atherosclerosis and other heart disease (2 sources) Presence of aortocoronary bypass graft; Translations: [Presence of aortocoronary bypass graft] Onset: 07-30-2024 Episodic Disorders of lipid metabolism (20 sources) Hyperlipidemia, unspecified; Translations: [Mixed hyperlipidemia] Onset: 10-28-2016 Chronic Essential hypertension (20 sources) Essential (primary) hypertension; Translations: [Essential hypertension] Onset: 10-28-2016 Chronic Osteoarthritis (8 sources) Osteoarthritis of joint of right wrist; Translations: [Primary osteoarthritis, right wrist] Onset: 02-23-2024 02-23-2024 Chronic Other non-traumatic joint disorders (1 source) Hip pain; Translations: [Pain in left hip] 02-23-2025 Episodic Other non-traumatic joint disorders (1 source) Pain in left hip; Translations: [Pain in left hip] Onset: 02-23-2025 Episodic Other nutritional; endocrine; and metabolic disorders (1 source) Obesity caused by energy imbalance; Translations: [Other obesity due to excess calories] 02-23-2024 Chronic Other nutritional; endocrine; and metabolic disorders (3 sources) Overweight; Translations: [Overweight] Onset: 02-04-2024 Episodic Other nutritional; endocrine; and metabolic disorders (11 sources) Body mass index 25-29 - overweight; Translations: [Overweight] Onset: 10-11-2017 Resolved: 02-23-2024 02-23-2024 Episodic Other screening for suspected conditions (not mental disorders or infectious disease) (4 sources) Encounter for screening for malignant neoplasm of prostate; Translations: [Patient encounter status] Onset: 02-23-2024 02-23-2024 Episodic Unclassified (2 sources) Unknown / UNK(Unknown) Onset: 02-20-2017 Unclassified (1 source) Pure hypercholesterolemia, unspecified; Translations: [PURE HYPERCHOLESTEROLEMIA, UNSPECIFIED] Onset: 02-20-2017 Unclassified (2 sources) Supraventricular tachycardia, unspecified; Translations: [Supraventricular tachycardia, unspecified] Onset: 02-23-2024 Unclassified (1 source) MAW Onset: 04-22-2024 Past or Other Problems Problem Classification Problem Date Documented Date Episodic/Chronic Biliary tract disease (14 sources) Calculus of bile duct without cholangitis or cholecystitis without obstruction; Translations: [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] Onset: 02-20-2017 08-05-2022 Episodic Cardiac dysrhythmias (18 sources) Palpitations; Translations: [Palpitations] Onset: 06-25-2012 02-05-2023 Episodic Diabetes mellitus without complication (10 sources) Type 2 diabetes mellitus without complication; Translations: [Type 2 diabetes mellitus without complications] Onset: 08-05-2022 Resolved: 08-05-2022 08-05-2022 Chronic Diabetes mellitus without complication (14 sources) Impaired fasting glucose; Translations: [Impaired fasting glycemia] Onset: 10-28-2016 08-05-2022 Episodic Esophageal disorders (10 sources) Laryngopharyngeal reflux; Translations: [Gastro-esophageal reflux disease without esophagitis] Onset: 04-08-2020 Resolved: 02-05-2023 02-05-2023 Chronic Mood disorders (10 sources) Mood disorders Onset: 04-22-2024 Resolved: 02-23-2025 04-22-2024 Other aftercare (1 source) termite treater helper (current) use of aspirin; Translations: [HALF-WAY (CURRENT) USE OF ASPIRIN] Onset: 02-20-2017 Episodic Other upper respiratory disease (10 sources) Deviated nasal septum; Translations: [Deviated nasal septum] Onset: 05-01-2017 08-05-2022 Episodic Screening and history of mental health and substance abuse codes (1 source) Patient encounter status; Translations: [Encounter for screening for depression] 04-26-2024 Episodic Unclassified (1 source) Supraventricular tachycardia, unspecified; Translations: [Supraventricular tachycardia, unspecified] Onset: 07-30-2024 Unclassified (10 sources) Onset: 08-13-2023 Resolved: 02-23-2025 08-13-2023 Results Test Name Value Interpretation Reference Range Facility COMPREHENSIVE METABOLIC PANE Estuardo 02-23-2025 Albumin [Mass/Vol] 4.7 g/dL Normal 3.2-5.3 [facility] Comment on above: Performed By: #### CMP #### [facility] ([facility]) [address] [place] [address] VIR ALP [Catalytic activity/Vol] 55 U/L Normal 39-130 [facility] Comment on above: Performed By: #### CMP #### [facility] ([facility]) [address] [place] [address] VIR ALT [Catalytic activity/Vol] 26 U/L Normal <=40 [facility] Comment on above: Performed By: #### CMP #### [facility] ([facility]) [address] [place] [address] VIR Anion gap [Moles/Vol] 9 mmol/L Normal 5-15 [facility] Comment on above: Performed By: #### CMP #### [facility] ([facility]) [address] [place] [address] VIR AST [Catalytic activity/Vol] 25 U/L Normal <=41 [facility] Comment on above: Performed By: #### CMP #### [facility] ([facility]) [address] [place] [address] VIR Bilirubin [Mass/Vol] 0.8 mg/dL Normal 0.3-1.2 [facility] Comment on above: Performed By: #### CMP #### [facility] ([facility]) [address] [place] [address] VIR Calcium [Mass/Vol] 9.7 mg/dL Normal 8.5-10.5 [facility] Comment on above: Performed By: #### CMP #### [facility] ([facility]) [address] [place] [address] VIR Chloride [Moles/Vol] 106 mmol/L Normal 98-109 [facility] Comment on above: Performed By: #### CMP #### [facility] ([facility]) [address] [place] [address] VIR CO2 [Moles/Vol] 26 mmol/L Normal 22-32 [facility] Comment on above: Performed By: #### CMP #### [facility] ([facility]) [address] [place] [address] VIR Creatinine [Mass/Vol] 0.89 mg/dL Normal 0.60-1.30 [facility] Comment on above: Result Comment: METHOD TRACEABLE TO IDMS STANDARD Performed By: #### C MP #### [facility] ([facility]) [address] [place] [address] VIR GFR/1.73 sq M.predicted among non-blacks MDRD (S/P/Bld) [Vol rate/Area] 90 mL/min/{1.73_m2} Normal >=60 [facility] Comment on above: Result Comment: Reported eGFR is based o n the CKD-EPI 2020 equation that does not use a race coefficient. Performed By: #### C MP #### [facility] ([facility]) [address] [place] [address] VIR Glucose [Mass/Vol] 100 mg/dL High 65-99 [facility] Comment on above: Performed By: #### CMP #### [facility] ([facility]) [address] [place] [address] VIR Potassium [Moles/Vol] 4.5 mmol/L Normal 3.5-5.0 [facility] Comment on above: Performed By: #### CMP #### [facility] ([facility]) [address] [place] [address] VIR Protein [Mass/Vol] 7.8 g/dL Normal 6.0-8.0 [facility] Comment on above: Performed By: #### CMP #### [facility] ([facility]) [address] [place] [address] VIR Sodium [Moles/Vol] 141 mmol/L Normal 134-146 [facility] Comment on above: Performed By: #### CMP #### [facility] ([facility]) [address] [place] [address] VIR Urea nitrogen [Mass/Vol] 24 mg/dL Normal 5-27 [facility] Comment on above: Performed By: #### CMP #### [facility] ([facility]) [address] [place] [address] VIR HEMOGLOBIN A1Con 02-23-2025 Glucose [Mass/Vol] 126 mg/dL Normal [facility] Comment on above: Performed By: #### HA1C #### [facility] ([facility]) [address] [place] [address] VIR HbA1c (Bld) [Mass fraction] 6.0 % High 4.4-5.6 [facility] Comment on above: Result Comment: ADA Guidelines Result HgbA1c Normal : less than 5.7 % Prediabetes : 5.7 % to 6.4 % Diabetes : > 6.4 % Use with caution in patients with abnormal hemoglobin variants as the half-life of red blood cells and in vivo glycation rates are affected. Performed By: #### H A1C #### [facility] ([facility]) [address] [place] [address] VIR LIPID PROFILEon 02-23-2025 Cholesterol [Mass/Vol] 120 mg/dL Low 150-200 [facility] Comment on above: Performed By: #### LIPR #### [facility] ([facility]) [address] [place] [address] VIR Cholesterol in HDL [Mass/Vol] 42 mg/dL Normal >39 [facility] Comment on above: Result Comment: HDL <40 mg/dL - High Ris k HDL > or = 40mg/dL- Desirable HDL >60 mg/dL - Negative Risk Performed By: #### L IPR #### [facility] ([facility]) [address] [place] [address] VIR Cholesterol in LDL [Mass/Vol] 41 mg/dL Normal <130 [facility] Comment on above: Result Comment: LDL <100 mg/dL - Desirab le LDL >160 mg/dL - High Risk Performed By: #### L IPR #### [facility] ([facility]) [address] [place] [address] VIR CHOLESTEROL:HDL 2.9 Normal 1.0-5.0 [facility] Comment on above: Performed By: #### LIPR #### [facility] ([facility]) [address] [place] [address] VIR Triglyceride [Mass/Vol] 183 mg/dL High 27-150 [facility] Comment on above: Performed By: #### LIPR #### [facility] ([facility]) [address] [place] [address] VIR VERY LOW LIPOPROTEIN 37 mg/dL High 0-30 [facility] Comment on above: Performed By: #### LIPR #### [facility] ([facility]) [address] [place] [address] VIR PROSTATIC SPECIFIC ANTIGEN S CREENon 02-23-2025 PROSTATIC SPEC ANT 3.00 ng/mL Normal 0.00-4.00 [facility] Comment on above: Result Comment: The method used for this test is Dylon Deckerton DXI chemiluminescent immunoassay. Values obtained by different assay methods cannot be used interchangeably. Performed By: #### P SAS #### [facility] ([facility]) [address] [place] [address] VIR 36on 08-30-2024 36 Regarding echo resul t from 08/10/2024: [facility] function, mild valvular heart disease, stable no further cardiac workup is indicated. Continue current management. LM for patient on his VM. Normal [facility] Office Visiton 07-30-2024 Follow-up visit [id number] Jayshree Cadet 1950 M Date Provider Department Center 07/30/2024 93380-OAGOXINORAH ALLEN [facility] No family history on file Level of Service:35371 [place] OFFICE/OUTPATIENT ESTABLISHED MOD MDM 30 MIN Reason for Visit and Comments: Coronary Artery Disease [187] - Denies chest pain and SOB. Atrial Fibrillation [80] - Denies palpitations. Hypertension [582136] Hyperlipidemia [182] - Had routine labs w/ lipid panel in February 2024. Still has intermittent myalgias. Normal [facility] COMPREHENSIVE METABOLIC PANE Estuardo 02-23-2024 Albumin [Mass/Vol] 4.4 g/dL Normal 3.2-5.3 [facility] Comment on above: Performed By: #### CMP, 57290-1, 2857-1, HA1C #### [facility] ([id number]) [address], [address] [place] [address] ALP [Catalytic activity/Vol] 51 U/L Normal 39-130 [facility] Comment on above: Performed By: #### SILVIANO, 52829-1, 2857-1, HA1C #### [facility] ([id number]) [address], [address] [place] [address] ALT [Catalytic activity/Vol] 28 U/L Normal 0-40 [facility] Comment on above: Performed By: #### SILVIANO, 27308-3, 2857-1, HA1C #### [facility] ([id number]) [address], [address] [place] [address] Anion gap [Moles/Vol] 8 mmol/L Normal 5-15 [facility] Comment on above: Performed By: #### SILVIANO, 08860-1, 2857-1, HA1C #### [facility] ([id number]) [address], [address] [place] [address] AST [Catalytic activity/Vol] 37 U/L Normal 0-41 [facility] Comment on above: Performed By: #### CMP, 85933-1, 2857-1, HA1C #### [facility] ([id number]) [address], [address] [place] [address] Bilirubin [Mass/Vol] 0.8 mg/dL Normal 0.3-1.2 [facility] Comment on above: Performed By: #### SILVIANO, 01284-4, 2857-1, HA1C #### [facility] ([id number]) [address], [address] [place] [address] Calcium [Mass/Vol] 9.8 mg/dL Normal 8.5-10.5 [facility] Comment on above: Performed By: #### SILVIANO, 59942-2, 2857-1, NIKKI1C #### [facility] ([id number]) [address], [address] [place] [address] Chloride [Moles/Vol] 105 mmol/L Normal 98-109 [facility] Comment on above: Performed By: #### SILVIANO, 88780-5, 2857-1, HA1C #### [facility] ([id number]) [address], [address] [place] [address] CO2 [Moles/Vol] 26 mmol/L Normal 22-32 [facility] Comment on above: Performed By: #### SILVIANO, 23714-2, 2857-1, NIKKI1C #### [facility] ([id number]) [address], [address] [place] [address] Creatinine [Mass/Vol] 0.88 mg/dL Normal 0.60-1.30 [facility] Comment on above: Result Comment: METHOD TRACEABLE TO IDMS STANDARD Performed By: #### C RIRI, 89474-0, 2857-1, NIKKI1C #### [facility] ([id number]) [address], [address] [place] [address] eGFR (CKD-EPI) NON-RACE DEPENDENT >90 Normal >59 [facility] Comment on above: Result Comment: Reported eGFR is based on the CKD-EPI 2020 equation that does not use a race coefficient. Performed By: #### C RIRI, 94279-2, 2857-1, NIKKI1C #### [facility] ([id number]) [address], [address] [place] [address] Glucose [Mass/Vol] 104 mg/dL High 65-99 [facility] Comment on above: Performed By: #### SILVIANO, 35691-1, 2857-1, HA1C #### [facility] ([id number]) [address], [address] [place] [address] Potassium [Moles/Vol] 4.0 mmol/L Normal 3.5-5.0 [facility] Comment on above: Performed By: #### SILVIANO, 69888-3, 2857-1, HA1C #### [facility] ([id number]) [address], [address] [place] [address] Protein [Mass/Vol] 7.6 g/dL Normal 6.0-8.0 [facility] Comment on above: Performed By: #### SILVIANO, 64020-6, 2857-1, HA1C #### [facility] ([id number]) [address], [facility] [address] [place] [address] Sodium [Moles/Vol] 139 mmol/L Normal 134-146 [facility] Comment on above: Performed By: #### SILVIANO, 83615-5, 2857-1, HA1C #### [facility] ([id number]) [address], [facility] [address] [place] [address] Urea nitrogen [Mass/Vol] 14 mg/dL Normal 5-27 [facility] Comment on above: Performed By: #### SILVIANO, 03984-6, 2857-1, HA1C #### [facility] ([id number]) [address], [address] [place] [address] HGB A1C (GLYCO-HGB)on 2023 Glucose [Mass/Vol] 131 mg/dL Normal [facility] Comment on above: Performed By: #### CMP, 29368-7, 2857-1, HA1C #### [facility] ([id number]) [address], [facility] [address] [place] [address] HbA1c (Bld) [Mass fraction] 6.2 % High 4.4-5.6 [facility] Comment on above: Result Comment: NOTE ADA Guidelines Result HgbA1c Normal : less than 5.7 % Prediabetes : 5.7 % to 6.4 % Diabetes : > 6.4 % Use with caution in patients with abnormal hemoglobin variants as the half-life of red blood cells and in vivo glycation rates are affected. Performed By: #### Estefania MENEZES, 26960-3, 2857-1, HA1C #### [facility] ([id number]) [address], [address] [place] [address] Lipid 1996 panelon 4 Cholesterol [Mass/Vol] 116 mg/dL Low 150-200 [facility] Comment on above: Performed By: ###Becki SHORE, 86282-7, 2857-1, HA1C #### [facility] ([id number]) [address], [address] [place] [address] Cholesterol in HDL [Mass/Vol] 45 mg/dL Normal >39 [facility] Comment on above: Result Comment: HDL <40 mg/dL - High Risk HDL > or = 40mg/dL- Desirable HDL >60 mg/dL - Negative Risk Performed By: #### C RIRI, 64584-9, 2857-1, HA1C #### [facility] ([id number]) [address], [address] [place] [address] Cholesterol in LDL [Mass/Vol] 39 mg/dL Normal <130 [facility] Comment on above: Result Comment: LDL <100 mg/dL - Desirable LDL >160 mg/dL - High Risk Performed By: #### C RIRI, 44854-3, 2857-1, HA1C #### [facility] ([id number]) [address] [facility], [address] [address] Cholesterol in VLDL [Mass/Vol] 32 mg/dL High 0-30 [facility] Comment on above: Performed By: #### SILVIANO, 11072-0, 2857-1, HA1C #### [facility] ([id number]) [address] [facility], [address] [address] CHOLESTEROL:HDL 2.6 Normal 1.0-5.0 [facility] Comment on above: Performed By: #### SILVIANO, 74557-2, 2857-1, HA1C #### [facility] ([id number]) [address] [address] Triglyceride [Mass/Vol] 159 mg/dL High 27-150 [facility] Comment on above: Performed By: #### SILVIANO, 70606-9, 2857-1, HA1C #### [facility] ([id number]) [address] [place] [address] Prostate specific Ag [Mass/V ol]on 02-23-2024 PSA SCREEN 2.33 ng/mL Normal 0.00-4.00 [facility] Comment on above: Result Comment: The method used for this test is Dylon Mati DXI chemiluminescent immunoassay. Values obtained by different assay methods cannot be used interchangeably. Performed By: #### C RIRI, 02921-1, 2857-1, HA1C #### [facility] ([id number]) [address] [address] 29on 02-04-2024 29 Addended by: NORAH ALLEN on: 02/12/2024 05:03 PM Modules accepted: Orders Normal [facility] Office Visiton 02-04-2024 Follow-up visit [id number] Jayshree Cadet 1950 M Date Provider Department Center 02/04/2024 NORAH SOLIS CARD [facility] No family history on file Level of Service:45580 [place] OFFICE/OUTPATIENT ESTABLISHED MOD MDM 30 MIN Normal [facility] COMPREHENSIVE METABOLIC PANE Estuardo 08-13-2023 Albumin [Mass/Vol] 4.7 g/dL Normal 3.2-5.3 [facility] Comment on above: Performed By: #### SILVIANO, 36240-2 #### [facility] ([id number]) [address], [address] [place] [address] ALP [Catalytic activity/Vol] 54 U/L Normal 39-130 [facility] Comment on above: Performed By: #### SILVIANO, 52986-5 #### [facility] ([id number]) [address], [address] [place] [address] ALT [Catalytic activity/Vol] 24 U/L Normal 0-40 [facility] Comment on above: Performed By: #### SILVIANO, 03882-7 #### [facility] ([id number]) [address], [address] [place] [address] Anion gap [Moles/Vol] 10 mmol/L Normal 5-15 [facility] Comment on above: Performed By: #### SILVIANO, 16770-7 #### [facility] ([id number]) [address], [address] [place] [address] AST [Catalytic activity/Vol] 31 U/L Normal 0-41 [facility] Comment on above: Performed By: #### CMP, 91245-7 #### [facility] ([id number]) [address], [address] [place] [address] Bilirubin [Mass/Vol] 0.8 mg/dL Normal 0.3-1.2 [facility] Comment on above: Performed By: #### CMP, 27119-1 #### [facility] ([id number]) [address], [address] [place] [address] Calcium [Mass/Vol] 10.0 mg/dL Normal 8.5-10.5 [facility] Comment on above: Performed By: #### SILVIANO, 44963-1 #### [facility] ([id number]) [address], [address] [place] [address] Chloride [Moles/Vol] 104 mmol/L Normal 98-109 [facility] Comment on above: Performed By: #### SILVIANO, 42157-5 #### [facility] ([id number]) [address], [address] [place] [address] CO2 [Moles/Vol] 25 mmol/L Normal 22-32 [facility] Comment on above: Performed By: #### SILVIANO, 14589-9 #### [facility] ([id number]) [address], [address] [place] [address] Creatinine [Mass/Vol] 0.88 mg/dL Normal 0.60-1.30 [facility] Comment on above: Result Comment: METHOD TRACEABLE TO IDMS STANDARD Performed By: #### Estefania MENEZES, 68161-0 #### [facility] ([id number]) [address], [address] [place] [address] eGFR (CKD-EPI) NON-RACE DEPENDENT >90 Normal >59 [facility] Comment on above: Result Comment: Reported eGFR is based on the CKD-EPI 1 equation that does not use a race coefficient. Performed By: #### C RIRI, 30601-5 #### [facility] ([id number]) [address], [address] [place] [address] Glucose [Mass/Vol] 103 mg/dL High 65-99 [facility] Comment on above: Performed By: #### SILVIANO, 35691-2 #### [facility] ([id number]) [address], [address] [place] [address] Potassium [Moles/Vol] 4.1 mmol/L Normal 3.5-5.0 [facility] Comment on above: Performed By: #### SILVIANO, 84737-5 #### [facility] ([id number]) [address], [address] [place] [address] Protein [Mass/Vol] 8.0 g/dL Normal 6.0-8.0 [facility] Comment on above: Performed By: #### SILVIANO, 90084-8 #### [facility] ([id number]) [address], [facility] [address] [place] [address] Sodium [Moles/Vol] 139 mmol/L Normal 134-146 [facility] Comment on above: Performed By: #### SILVIANO, 83493-3 #### [facility] ([id number]) [address], [facility] [address] [place] [address] Urea nitrogen [Mass/Vol] 20 mg/dL Normal 5-27 [facility] Comment on above: Performed By: #### SILVIANO, 57269-5 #### [facility] ([id number]) [address], [address] [place] [address] HGB A1C (GLYCO-HGB)on 2022 Glucose [Mass/Vol] 123 mg/dL Normal [facility] Comment on above: Performed By: #### SILVIANO, 07800-2 #### [facility] ([id number]) [address], [facility] [address] [place] [address] HbA1c (Bld) [Mass fraction] 5.9 % High 4.4-5.6 [facility] Comment on above: Result Comment: NOTE ADA Guidelines Result HgbA1c Normal : less than 5.7 % Prediabetes : 5.7 % to 6.4 % Diabetes : > 6.4 % Use with caution in patients with abnormal hemoglobin variants as the half-life of red blood cells and in vivo glycation rates are affected. Performed By: #### Estefania MENEZES, 92290-3 #### [facility] ([id number]) [address], [address] [place] [address] Lipid 1996 panelon 3 Cholesterol [Mass/Vol] 116 mg/dL Low 150-200 [facility] Comment on above: Performed By: #### SILVIANO, 97145-8 #### [facility] ([id number]) [address] [place] [address] Cholesterol in HDL [Mass/Vol] 42 mg/dL Normal >39 [facility] Comment on above: Result Comment: HDL <40 mg/dL - High Risk HDL > or = 40mg/dL- Desirable HDL >60 mg/dL - Negative Risk Performed By: #### Estefania MENEZES, 46574-7 #### [facility] ([id number]) [address] [place] [address] Cholesterol in LDL [Mass/Vol] 40 mg/dL Normal <130 [facility] Comment on above: Result Comment: LDL <100 mg/dL - Desirable LDL >160 mg/dL - High Risk Performed By: #### Estefania MENEZES, 09996-2 #### [facility] ([id number]) [address] [place] [address] Cholesterol in VLDL [Mass/Vol] 34 mg/dL High 0-30 [facility] Comment on above: Performed By: #### SILVIANO, 95792-5 #### [facility] ([id number]) [address], [address] [place] [address] CHOLESTEROL:HDL 2.8 Normal 1.0-5.0 [facility] Comment on above: Performed By: #### CMP, 03587-8 #### [facility] ([id number]) [address], [address] [place] [address] Triglyceride [Mass/Vol] 172 mg/dL High 27-150 [facility] Comment on above: Performed By: #### CMP, 64512-0 #### [facility] ([id number]) [address], [address] [place] [address] LIPID PROFILEon 07-25-2022 CHOL-HDL RATIO NORM SEE BELOW Normal [facility] Comment on above: Result Comment: 3.3 - 4.4 LOW RISK 4.4 - 7.1 AVERAGE RISK 7.1 - 11.0 MODERATE RISK >11.0 HIGH RISK Performed By: #### C MP, LIPID #### [facility] [address] [address] [address] Tessy Duran Cholesterol [Mass/Vol] 120 mg/dL Normal <=200 [facility] Comment on above: Performed By: #### CMP, LIPID #### [facility] [address] [address] [address] Tessy Duran Cholesterol in HDL [Mass/Vol] 48 mg/dL Normal 40-60 [facility] Comment on above: Performed By: #### CMP, LIPID #### [facility] [address] [address] [address] Tessy Duran Cholesterol in LDL [Mass/Vol] 39.4 mg/dL Normal [facility] Comment on above: Performed By: #### CMP, LIPID #### [facility] [address] [address] [address] Tessy Duran Cholesterol.tota l/Cholesterol in HDL [Mass ratio] 2.5 {ratio} Normal [facility] Comment on above: Performed By: #### CMP, LIPID #### [facility] [address] [address] [address] Tessy Duran HDL NORMAL > or = 60 mg/dl - LO W CARDIOVASCULAR RISK <40 mg/dl - HIGH CARDIOVASCULAR RISK Normal [facility] Comment on above: Performed By: #### CMP, LIPID #### [facility] [address] [address] [address] Tessy Duran LDL CALC NORMAL SEE BELOW Normal [facility] Comment on above: Result Comment: <100 mg/dl OPTIMAL 100 - 129 mg/dl NEAR OR ABOVE OPTIMAL 130 - 159 mg/dl BORDERLINE HIGH 160 - 189 mg/dl HIGH >190 mg/dl VERY HIGH Performed By: #### C MP, LIPID #### [facility] [address] [place] [address] Dr. Tessy Duran Triglyceride [Mass/Vol] 163 mg/dL Critically high <=150 [facility] Comment on above: Performed By: #### CMP, LIPID #### [facility] [address] [place] [address] Dr. Tessy Duran VLDL CALC 32.6 mg/dL Normal [facility] Comment on above: Performed By: #### CMP, LIPID #### [facility] [address] [place] [address] Dr. Tessy Duran PROF 14(COMP METB)on 022 Albumin [Mass/Vol] 4.1 g/dL Normal 3.4-5.0 [facility] Comment on above: Performed By: #### CMP, LIPID #### [facility] [address] [place] [address] Dr. Tessy Duran Albumin/Globulin [Mass ratio] 1.0 {ratio} Normal [facility] Comment on above: Performed By: #### CMP, LIPID #### [facility] [address] [place] [address] Dr. Tessy Duran ALP [Catalytic activity/Vol] 59 U/L Normal 46-116 [facility] Comment on above: Performed By: #### CMP, LIPID #### [facility] [address] [place] [address] Dr. Tessy Duran ALT [Catalytic activity/Vol] 54 U/L Normal 16-63 [facility] Comment on above: Performed By: #### CMP, LIPID #### [facility] [address] [place] [address] Dr. Tessy Duran Anion gap [Moles/Vol] 14.5 mmol/L Normal [facility] Comment on above: Performed By: #### CMP, LIPID #### [facility] [address] [address] [address] Tessy Duran AST [Catalytic activity/Vol] 48 U/L Critically high 15-37 [facility] Comment on above: Performed By: #### CMP, LIPID #### [facility] [address] [address] [address] Tessy Duran Bilirubin [Mass/Vol] 0.7 mg/dL Normal 0.2-1.0 [facility] Comment on above: Performed By: #### CMP, LIPID #### [facility] [address] [address] [address] Tessy Duran Calcium [Mass/Vol] 9.2 mg/dL Normal 8.5-10.1 [facility] Comment on above: Performed By: #### CMP, LIPID #### [facility] [address] [place] [address] Dr. Tessy Duran Chloride [Moles/Vol] 103 mmol/L Normal 98-107 [facility] Comment on above: Performed By: #### CMP, LIPID #### [facility] [address] [place] [address] Dr. Tessy Duran CO2 [Moles/Vol] 24.3 mmol/L Normal 21.0-32.0 [facility] Comment on above: Performed By: #### CMP, LIPID #### [facility] [address] [address] [address] Tessy Duran Creatinine [Mass/Vol] 0.87 mg/dL Normal 0.70-1.30 [facility] Comment on above: Performed By: #### CMP, LIPID #### [facility] [address] [place] [address] Dr. Tessy Duran EGFR-AF DJIBOUTIAN >60 Normal >=60 [facility] Comment on above: Performed By: #### CMP, LIPID #### [facility] [address] [place] [address] Dr. Tessy Duran EGFR-NON AF DJIBOUTIAN >60 Normal >=60 [facility] Comment on above: Performed By: #### CMP, LIPID #### [facility] [address] [address] [address] Tessy Duran Globulin (S) [Mass/Vol] 4.2 g/dL Normal [facility] Comment on above: Performed By: #### CMP, LIPID #### [facility] [address] [address] [address] Tessy Duran Glucose [Mass/Vol] 104 mg/dL Normal 74-106 [facility] Comment on above: Performed By: #### CMP, LIPID #### [facility] [address] [address] [address] Tessy Duran Potassium [Moles/Vol] 3.8 mmol/L Normal 3.5-5.1 [facility] Comment on above: Performed By: #### CMP, LIPID #### [facility] [address] [place] [address] Dr. Tessy Duran Protein [Mass/Vol] 8.3 g/dL Critically high 6.4-8.2 [facility] Comment on above: Performed By: #### CMP, LIPID #### [facility] [address] [place] [address] Dr. Tessy Duran Sodium [Moles/Vol] 138 mmol/L Normal 136-145 [facility] Comment on above: Performed By: #### CMP, LIPID #### [facility] [address] [place] [address] Dr. Tessy Duran Urea nitrogen [Mass/Vol] 16.0 mg/dL Normal 7.0-18.0 [facility] Comment on above: Performed By: #### CMP, LIPID #### [facility] [address] [address] [address] Tessy Duran Urea nitrogen/Creatin ine [Mass ratio] 18.4 mg/mg Normal [facility] Comment on above: Performed By: #### CMP, LIPID #### [facility] [address] [place] [address] Dr. Tessy Duran BASIC METABOLIC PANELon 06-0 BUN/CREATININE RATIO NOT APPLICABLE Normal 6-22 [facility] Comment on above: Performed By: #### 53842, 496, 7600 #### [facility] [place] [address] Director Economic: Karlo Ardon MD Calcium [Mass/Vol] 9.7 mg/dL Normal 8.6-10.3 [facility] Comment on above: Performed By: #### 76068, 496, 7600 #### [facility] [place] [address] Director Economic: Karlo Ardon MD Chloride [Moles/Vol] 106 mmol/L Normal 98-110 [facility] Comment on above: Performed By: #### 08479, 496, 7600 #### [facility] [place] [address] Director Economic: Karlo Ardon MD CO2 [Moles/Vol] 26 mmol/L Normal 20-32 [facility] Comment on above: Performed By: #### 31473, 496, 7600 #### [facility] [place] [address] Director Economic: Karlo Ardon MD Creatinine [Mass/Vol] 0.95 mg/dL Normal 0.70-1.18 [facility] Comment on above: Result Comment: For patients >49 years o f age, the reference limit for Creatinine is approximately 13% higher for people identified as -Greek. Performed By: #### 1 0165, 496, 7600 #### [facility] [place] [address] Director Economic: Karlo Ardon MD eGFR NON-AFR. DJIBOUTIAN 81 mL/min/1.73m2 Normal > OR = 60 [facility] Comment on above: Performed By: #### 28241, 496, 7600 #### [facility] [place] [address] Director Economic: Kalro Ardon MD GFR/1.73 sq M.predicted among blacks MDRD (S/P/Bld) [Vol rate/Area] 94 mL/min/{1.73_m2} Normal > OR = 60 [facility] Comment on above: Performed By: #### 14218, 496, 7600 #### [facility] [place] [address] Director Economic: Karlo Ardon MD Glucose [Mass/Vol] 99 mg/dL Normal 65-99 [facility] Comment on above: Result Comment: Fasting reference interval Performed By: #### 1 0165, 496, 7600 #### [facility] [place] [address] Director Economic: Karlo Ardon MD Potassium [Moles/Vol] 4.1 mmol/L Normal 3.5-5.3 [facility] Comment on above: Performed By: #### 63930, 496, 7600 #### [facility] [place] [address] Director Economic: Karlo Ardon MD Sodium [Moles/Vol] 140 mmol/L Normal 135-146 [facility] Comment on above: Performed By: #### 56804, 496, 7600 #### [facility] [place] [address] Director Economic: Karlo Ardon MD Urea nitrogen [Mass/Vol] 22 mg/dL Normal 7-25 [facility] Comment on above: Performed By: #### 93608, 496, 7600 #### [facility] [place] [address] Director Economic: Karlo Ardon MD HEMOGLOBIN A1con 01-31-2022 HEMOGLOBIN [...] diagnosis of diabetes in children. According to [place] Diabetes Association (ADA) guidelines, hemoglobin A1c <7.0% represents optimal control in non- diabetic patients. Different metrics may apply to specific patient populations. Standards of Medical Care in Diabetes(ADA). Performed By: #### 1 0165, 496, 7600 #### [facility] [address], [address] [place] [address] Director Economic: Karlo Ardon MD LIPID PANEL, [facility] Cholesterol [Mass/Vol] 129 mg/dL Normal <200 [facility] Comment on above: Order Comment: FASTING:YES FASTING: YES Performed By: #### 1 0165, 496, 7600 #### [facility] [address], [address] [place] [address] Director Economic: Karlo Ardon MD Cholesterol in HDL [Mass/Vol] 44 mg/dL Normal > OR = 40 [facility] Comment on above: Order Comment: FASTING:YES FASTING: YES Performed By: #### 1 0165, 496, 7600 #### [facility] [address], [address] [place] [address] Director Economic: Karlo Ardon MD Cholesterol in LDL [Mass/Vol] [...] Friedewald equation in the estimation of LDL-C. Celestion GARDUNO et al. JAYLEN. 2013;310(19): 3214-1738 (http://education.[employer]faq/RQD854) Performed By: #### 1 0165, 496, 7600 #### [facility] [address], [address] [place] [address] Director Economic: Karlo Ardon MD Cholesterol.tota l/Cholesterol in HDL [Mass ratio] 2.9 {ratio} Normal <5.0 [facility] Comment on above: Order Comment: FASTING:YES FASTING: YES Performed By: #### 1 0165, 496, 7600 #### [facility] [place] [address] Director Economic: Karlo Ardon MD NON HDL CHOLESTEROL 85 mg/dL (calc) Normal <130 [facility] Comment on above: Order Comment: FASTING:YES FASTING: YES Result Comment: For patients with diabetes plus 1 major ASCVD risk factor, treating to a non-HDL-C goal of <100 mg/dL (LDL-C of <70 mg/dL) is considered a therapeutic option. Performed By: #### 1 0165, 496, 7600 #### [facility] [place] [address] Director Economic: Karlo Ardon MD Triglyceride [Mass/Vol] 179 mg/dL High <150 [facility] Comment on above: Order Comment: FASTING:YES FASTING: YES Performed By: #### 1 0165, 496, 2740 #### [facility] [place] [address] Director Economic: Karlo Ardon MD [facility] METABOLIC [facility] 06-20-2021 Albumin [Mass/Vol] 4.5 g/dL Normal 3.6-5.1 [facility] Comment on above: Performed By: #### 8000, 5351, 07628 ### # [facility] [place] [address] Director Economic: Karlo Ardon MD Albumin/Globulin [Mass ratio] 1.6 {ratio} Normal 1.0-2.5 [facility] Comment on above: Performed By: #### 9040, 5363, 26168 ### # [facility] [place] [address] Director Economic: Karlo Ardon MD ALP [Catalytic activity/Vol] 49 U/L Normal 35-144 [facility] Comment on above: Performed By: #### 3580, 5363, 67740 ### # [facility] of [address], [address] [place] [address] Director Economic: Karlo Ardon MD ALT [Catalytic activity/Vol] 28 U/L Normal 9-46 [facility] Comment on above: Performed By: #### 7600, 5363, 60212 ### # [facility] of [address], [address] [place] [address] Director Economic: Karlo Ardon MD AST [Catalytic activity/Vol] 35 U/L Normal 10-35 [facility] Comment on above: Performed By: #### 7600, 5363, 25579 ### # [facility] of [address], [address] [place] [address] Director Economic: Karlo Ardon MD Bilirubin [Mass/Vol] 0.6 mg/dL Normal 0.2-1.2 [facility] Comment on above: Performed By: #### 7600, 5363, 01287 ### # [facility] of [address], [address] [place] [address] Director Economic: Karlo Ardon MD BUN/CREATININE RATIO NOT APPLICABLE Normal 6-22 [facility] Comment on above: Performed By: #### 7600, 5363, 75317 ### # [facility] of [address], [address] [place] [address] Director Economic: Karlo Ardon MD Calcium [Mass/Vol] 9.7 mg/dL Normal 8.6-10.3 [facility] Comment on above: Performed By: #### 7600, 5363, 63038 ### # [facility] of [place] [address] Director Economic: Karlo Ardon MD Chloride [Moles/Vol] 106 mmol/L Normal 98-110 [facility] Comment on above: Performed By: #### 7600, 5363, 27639 ### # [facility] of [address], [address] [place] [address] Director Economic: Karlo Ardon MD CO2 [Moles/Vol] 27 mmol/L Normal 20-32 [facility] Comment on above: Performed By: #### 7600, 5363, 03800 ### # [facility] [address], [address] [place] [address] Director Economic: Karlo Ardon MD Creatinine [Mass/Vol] 0.85 mg/dL Normal 0.70-1.25 [facility] Comment on above: Result Comment: For patients >49 years o f age, the reference limit for Creatinine is approximately 13% higher for people identified as -Greek. Performed By: #### 7 600, 5363, 89219 #### [facility] [address], [address] [place] [address] Director Economic: Karlo Ardon MD eGFR NON-AFR. DJIBOUTIAN 89 mL/min/1.73m2 Normal > OR = 60 [facility] Comment on above: Performed By: #### 7600, 5363, 74096 ### # [facility] [address], [address] [place] [address] Director Economic: Karlo Ardon MD GFR/1.73 sq M.predicted among blacks MDRD (S/P/Bld) [Vol rate/Area] 103 mL/min/{1.73_m2} Normal > OR = 60 [facility] Comment on above: Performed By: #### 7600, 5363, 98719 ### # [facility] [address], [address] [place] [address] Director Economic: Karlo Ardon MD Globulin (S) [Mass/Vol] 2.8 g/dL Normal 1.9-3.7 [facility] Comment on above: Performed By: #### 7600, 5363, 95161 ### # [facility] [address], [address] [place] [address] Director Economic: Karlo Ardon MD Glucose [Mass/Vol] 113 mg/dL High 65-99 [facility] Comment on above: Result Comment: Fasting reference interval For someone without known diabetes, a glucose value between 100 and 125 mg/dL is consistent with prediabetes and should be confirmed with a follow-up test. Performed By: #### 7 600, 5363, 03133 #### [facility] of [address], [address] [place] [address] Director Economic: Karlo Ardon MD Potassium [Moles/Vol] 3.8 mmol/L Normal 3.5-5.3 [facility] Comment on above: Performed By: #### 7600, 5363, 14332 ### # [facility] of [address], [address] [place] [address] Director Economic: Karlo Ardon MD Protein [Mass/Vol] 7.3 g/dL Normal 6.1-8.1 [facility] Comment on above: Performed By: #### 7600, 5363, 52323 ### # [facility] of [address], [address] [place] [address] Director Economic: Karlo Ardon MD Sodium [Moles/Vol] 140 mmol/L Normal 135-146 [facility] Comment on above: Performed By: #### 7600, 5363, 91648 ### # [facility] of [address], [address] [place] [address] Director Economic: Karlo Ardon MD Urea nitrogen [Mass/Vol] 15 mg/dL Normal 7-25 [facility] Comment on above: Performed By: #### 7600, 5363, 29798 ### # [facility] of [place] [address] Director Economic: Karlo Ardon MD LIPID PANEL, [place] [address]-2 Cholesterol [Mass/Vol] 121 mg/dL Normal <200 [facility] Comment on above: Order Comment: FASTING:YES FASTING: YES Performed By: #### 7 600, 5363, 59038 #### [facility] of [place] [address] Director Economic: Karlo Ardon MD Cholesterol in HDL [Mass/Vol] 46 mg/dL Normal > OR = 40 [facility] Comment on above: Order Comment: FASTING:YES FASTING: YES Performed By: #### 7 600, 5363, 47305 #### [facility] of [place] [address], [address] [place] [address] Director Economic: Karlo Ardon MD Cholesterol in LDL [Mass/Vol] [...] equation in the estimation of LDL-C. Celestino SS et al. JAYLEN. 2013;310(19): 5068-2708 (http://education.[employer]/faq/OJA468) Performed By: #### 7 600, 5363, 77184 #### [facility] [address], [address] [place] [address] Director Economic: Karlo Ardon MD Cholesterol.tota l/Cholesterol in HDL [Mass ratio] 2.6 {ratio} Normal <5.0 [facility] Comment on above: Order Comment: FASTING:YES FASTING: YES Performed By: #### 7 600, 5363, [id number] #### [facility] [place] [address] Director Economic: Karlo Ardon MD NON HDL CHOLESTEROL 75 mg/dL (calc) Normal <130 [facility] Comment on above: Order Comment: FASTING:YES FASTING: YES Result Comment: For patients with diabetes plus 1 major ASCVD risk factor, treating to a non-HDL-C goal of <100 mg/dL (LDL-C of <70 mg/dL) is considered a therapeutic option. Performed By: #### 7 600, 5363, [id number] #### [facility] [place] [address] Director Economic: Karlo Ardon MD Triglyceride [Mass/Vol] 292 mg/dL High <150 [facility] Comment on above: Order Comment: FASTING:YES FASTING: YES Result Comment: If a non-fasting specimen was collected, consider repeat triglyceride testing on a fasting specimen if clinically indicated. Dawit et al. J. of Clin. Lipidol. 2015;9:129-169. Performed By: #### 7 600, 5363, [id number] #### [facility] [address], [address] [place] [address] Director Economic: Karlo Ardon MD PSA, TOTALon 06-20-2021 PSA, TOTAL 1.95 ng/mL Normal < OR = 4.00 [facility] Comment on above: Result Comment: The [...] disease. Performed By: #### 7 600, 5363, [id number] #### [facility] [address], [address] [place] [address] Director Economic: Karlo Ardon MD Operative Reporton 7 Operative Report MR#: [id number] [facility] Pt. Name: Genesis Cadet Room #: 0C Discharge 02/20/2017 Date: [...] Dict: 02/26/2017//Nba Reynaga M.D.Date Trans: 03/01/2017 11:39 A/Long_JN:[id number]/cc: Jimbo Gleason M.D. [address], [address] [facility] [address] Amor Low D.O. [address] [facility] [address] [address] [facility] ERCPon 02-20-2017 [facility]CP [facility] [address] [place] [address] Patient Name: GENESIS CADET : 1950ex: MAge: Race: OtherMRN: [id number]. Location: 230Patient Status: Date: 02/17/2017 5:00:00 AMCompleted Date: 02/20/2017 01:04 PMRequesting Provider: SHARMILA MARCUS Attending Provider: Report Copy To: Signs & Symptoms: R10.9 Unspecified abdominal pain [id number]: AthenaComments: , , Appointment Date: 02/17/2017 , Appointment Time: 10:30AM , , , Ordering Provider - SHARMILA MARCUS , Exam: ERCPAccession #: [id number] ERCP 02/20/2017 1:04 PM EDT SIGNS AND SYMPTOMS: , , Appointment Date: 02/17/2017 , Appointment Time: 10:30AM , , , Ordering Provider - SHARMILA MARCUS , ERCP with Dr. Reynaga 2:33min fluoro time TECHNIQUE: Intraprocedural fluoroscopy without radiologist supervision or interpretation. Electronically signed by:Elver Justin M.D.. Transcribed by: [email or web address], User Resident: Electronically Signed by: ELVER JUSTIN @ 02/20/2017 01:37 PM Normal [facility] Comment on above: Order Comment: , , Appointment Date: , Appointment Time: 10:30AM , , , Ordering Provider - SHARMILA MARCUS , Vital Signs Date Time Vital Sign Value Performing Clinician Facility 02-23-2025 08:34-0400 Body height 167.6 cm Jimbo Furlong DO Work Phone: [facility] 02-23-2025 08:34-0400 Body mass index (BMI) [Ratio] 29.71 kg/m2 Jimbo Furlong DO Work Phone: [facility] 02-23-2025 08:34-0400 Body temperature 97.9 [degF] Jibmo Furlong DO Work Phone: [facility] [address] [facility] 02-23-2025 08:34-0400 Body weight 83.46 kg Jimbo Furlong DO Work Phone: [facility] [address] [employer] [facility] 02-23-2025 08:34-0400 Diastolic blood pressure 70 mm[Hg] Jimbo Furlong DO Work Phone: [facility] [address] [employer] [facility] 02-23-2025 08:34-0400 Heart rate 55 /min Jimbo Furlong DO Work Phone: [facility] [address] [employer] [facility] 02-23-2025 08:34-0400 Respiratory rate 20 /min Jimbo Furlong DO Work Phone: [facility] 02-23-2025 08:34-0400 SaO2% (BldA) [Mass fraction] 97 % Jimbo Furlong DO Work Phone: [facility] [employer] [facility] 02-23-2025 08:34-0400 Systolic blood pressure 140 mm[Hg] Jimbo Furlong DO Work Phone: [facility] [address] [employer] [facility] 04-22-2024 10:17-0400 Body height 167.6 cm Jimbo Furlong DO Work Phone: [facility] 04-22-2024 10:17-0400 Body mass index (BMI) [Ratio] 30.55 kg/m2 Jimbo Furlong DO Work Phone: [facility] [address] [employer] [facility] 04-22-2024 10:17-0400 Body weight 85.87 kg Jimbo Furlong DO Work Phone: [facility] [address] [employer] [facility] 04-22-2024 10:17-0400 Diastolic blood pressure 72 mm[Hg] Jimbo Furlong DO Work Phone: [facility] 04-22-2024 10:17-0400 Systolic blood pressure 118 mm[Hg] Jimbo Furlong DO Work Phone: [facility] 02-23-2024 09:40-0400 Body height 167.6 cm Jimbo Furlong DO Work Phone: [facility] 02-23-2024 09:40-0400 Body mass index (BMI) [Ratio] 30.25 kg/m2 Jimbo Furlong DO Work Phone: [facility] [employer] [facility] 02-23-2024 09:40-0400 Body temperature 97.59 [degF] Jimbo Furlong DO Work Phone: [facility] 02-23-2024 09:40-0400 Body weight 85 kg Jimbo Furlong DO Work Phone: [facility] 02-23-2024 09:40-0400 Diastolic blood pressure 72 mm[Hg] Jimbo Furlong DO Work Phone: [facility] [address] [employer] [facility] 02-23-2024 09:40-0400 Heart rate 46 /min Jimbo Furlong DO Work Phone: [facility] 02-23-2024 09:40-0400 SaO2% (BldA) [Mass fraction] 97 % Jimbo Furlong DO Work Phone: [facility] 02-23-2024 09:40-0400 Systolic blood pressure 118 mm[Hg] Jimbo Furlong DO Work Phone: [facility] [employer] [facility] Encounters Encounter Date Encounter Type Care Provider Facility Start: 02-23-2025 End: 02-23-2025 Office outpatient visit 25 minutes Jimbo Meredith Furlong DO Work Phone: [facility] Comment on above: Essential hypertensi on (Primary Dx); Mixed hyperlipidemia; Impaired fasting glucose; Left hip pain; Paroxysmal atrial fibrillation (CMS-HCC); SVT (supraventricular tachycardia); Overweight (BMI 25.0-29.9); Encounter for screening for malignant neoplasm of prostate Start: 02-23-2025 End: 02-23-2025 [facility] Start: 12-23-2024 End: 12-23-2024 Refill Jimbo Gleason DO [facility] Comment on above: Essential (primary) hypertension Start: 09-17-2024 End: 09-17-2024 Refill [facility] Start: 07-30-2024 End: 07-30-2024 ambulatory [facility] Start: 06-25-2024 End: 06-25-2024 Refill [facility] Gleason DO [facility] Comment on above: Essential (primary) hypertension; Hyperlipidemia, unspecified Start: 04-22-2024 End: 04-22-2024 Patient encounter procedure Jimbo Gleason DO Work Phone: [facility] Comment on above: Medicare annual well ness visit, subsequent (Primary Dx); Screening for depression Start: 04-22-2024 End: 04-22-2024 [facility] Start: 03-31-2024 End: 03-31-2024 Refill Jimbo Gleason DO Work Phone: [facility] Comment on above: Essential (primary) hypertension Start: 02-23-2024 End: 02-23-2024 [facility] Start: 02-23-2024 End: 02-23-2024 Office outpatient visit 25 minutes Jimbo Gleason DO Work Phone: [facility] Comment on above: Essential hypertensi on (Primary Dx); Atherosclerosis of [place] coronary artery of [place] heart without angina pectoris; Mixed hyperlipidemia; Impaired fasting glucose; Primary osteoarthritis of right wrist; Encounter for screening for malignant neoplasm of prostate; Bradycardia; Class 1 obesity due to excess calories with serious comorbidity and body mass index (BMI) of 30.0 to 30.9 in adult Start: 02-04-2024 End: 02-04-2024 ambulatory [facility] Start: 01-06-2024 End: 01-21-2024 Telephone encounter Rosibel Wilson [facility] Start: 12-22-2023 End: 12-22-2023 Refill Jimbo Gleason DO Work Phone: [facility] Comment on above: Atherosclerotic hear t disease of [place] coronary artery without angina pectoris Start: 10-01-2023 Refill Jimbo ramirez DO Work Phone: [facility] Comment on above: Essential (primary) hypertension Start: 08-13-2023 End: 08-13-2023 ambulatory JIMBO GLEASON [facility] Start: 07-25-2022 End: 07-26-[address] JIMBO GLEASNO Facility: Start: 02-20-2017 End: 02-21-2017 Ambulatory NAB REYNAGA Facility:[facility] Procedures Date Procedure Procedure Detail Performing Clinician Start: 02-23-2025 Adult depression screening assessment Jimbo Maxxhanna DO Work Phone: Start: 04-22-2024 Adult depression screening assessment Jimbo Maxxhanna DO Work Phone: Start: 08-13-2023 Adult depression screening assessment Jimbo Maxxhanna DO Work Phone: Start: 02-20-2017 Anesth, upper gi visualize [facility] BECKETT Start: 02-20-2017 ENDO CHOLANGIOPANCREATOGRAPH [facility] Start: 02-20-2017 ERCP REMOVE DUCT CALCULI NBA REYNAGA Start: 02-20-2017 ERCP REMOVE FORGN BODY DUCT NBA REYNAGA Plan of Treatment Date Care Activity Detail Author Start: 02-05-2033 DTaP,Tdap and Td Vaccines (3 - Td or Tdap) DTaP,Tdap and Td Vaccines (3 - Td or Tdap) [facility] Start: 04-04-2026 Screening for malign ant neoplasm of colon Colon Cancer Screening 3 Year Cologuard [facility] Start: 02-23-2026 Adult BMI Screening Adult BMI Screen ing [facility] Start: 02-23-2026 Depression Screening Depression Scre ening [facility] Start: 02-23-2026 Fall Risk Screening Fall Risk Screen ing [facility] Start: 02-23-2026 Tobacco Screening Tobacco Screening [facility] Start: 02-22-2026 End: 02-22-2026 Patient encounter procedure 02/22/2026 9:00 AM EDT Office Visit [facility] - Family Medicine [address] [place] [address] Jimbo Gleason, DO [address], [place] [address] [facility] Internal [facility] - Family [facility] Start: 04-26-2025 End: 04-26-2025 Patient encounter procedure 04/26/2025 10:00 AM EDT Office Visit [facility] Internal [facility] - Family Medicine [address] [place] [address] [facility] Start: 04-25-2025 Influenza vaccination Influenza Vacc ine [facility] Start: 04-22-2025 Adult BMI Screening Adult BMI Screen ing [facility] Start: 04-22-2025 Depression Screening Depression Scre ening [facility] Start: 04-22-2025 Medicare Annual Wellness Visit Medicare Annual Wellness Visit [facility] Start: 04-19-2025 Fall Risk Screening Fall Risk Screen ing [facility] Start: 02-23-2025 End: 02-23-2026 XR Pelvis and Hip - left 2 Views X-ray hip left 2-3 views with or without pelvis Imaging Routine Left hip pain Expected: 02/23/2025, Expires: 02/23/2026 [facility] Work Phone: Comment on above: Expected: 02/23/2025 , Expires: 02/23/2026 Start: 02-22-2025 Adult BMI Screening Adult BMI Screen ing [facility] Start: 02-22-2025 Tobacco Screening Tobacco Screening [facility] Start: 01-27-2025 End: 01-27-2025 Patient encounter procedure 01/27/2025 2:45 PM EDT [facility] [address] [place] [address] Jimbo Gleason DO [address], [place] [address] [facility] Start: 12-02-2024 COVID-19 Vaccine ( season) COVID-19 Vaccine () [facility] Start: 08-13-2024 Adult BMI Follow Up Plan Adult BMI Follow Up Plan [facility] Start: 08-13-2024 Adult BMI Screening Adult BMI Screen ing [facility] Start: 08-13-2024 Depression Screening Depression Scre ening [facility] Start: 08-13-2024 Fall Risk Screening Fall Risk Screen ing [facility] Start: 08-13-2024 Tobacco Screening Tobacco Screening [facility] Start: 04-25-2024 COVID-19 Vaccine ( season) COVID-19 Vaccine () [facility] Start: 04-25-2024 COVID-19 Vaccine () COVID-19 Vaccine () [facility] Start: 04-25-2024 Influenza vaccination Influenza Vacc ine [facility] Start: 04-22-2024 End: 04-22-2024 Patient encounter procedure 04/22/2024 10:20 AM EDT Office Visit [facility] [address] [place] [address] [facility] Start: 02-23-2024 End: 02-23-2024 Patient encounter procedure 02/23/2024 9:45 AM EDT Office Visit [facility] [address] [place] [address] Jimbo Gleason, [address], [place] [address] [facility] Start: 09-26-2023 COVID-19 Vaccine ( season) COVID-19 Vaccine () [facility] [employer] [facility] End: 02-22-2025 Comprehensive metabolic 2000 panel - Serum or Plasma Comprehensive metabolic panel Lab Routine Essential hypertension 1 Occurrences starting 02/23/2024 until 02/22/2025 [facility]: Comment on above: 1 Occurrences starti ng 02/23/2024 until 02/22/2025 End: 02-23-2026 Comprehensive metabolic 2000 panel - Serum or Plasma Comprehensive metabolic panel Lab Routine Essential hypertension 1 Occurrences starting 02/23/2025 until 02/23/2026 [facility] Comment on above: 1 Occurrences starti ng 02/23/2025 until 02/23/2026 Comprehensive metabo lic 2000 panel - Serum or Plasma Comprehensive metabolic panel Lab Routine Essential hypertension 02/23/2025 9:[facility] End: 02-22-2025 Hemoglobin A1c/Hemoglobin.total in Blood Hemoglobin A1c Lab Routine Impaired fasting glucose 1 Occurrences starting 02/23/2024 until 02/22/2025 [facility] Comment on above: 1 Occurrences starti ng 02/23/2024 until 02/22/2025 End: 02-23-2026 Hemoglobin A1c/Hemoglobin.total in Blood Hemoglobin A1c Lab Routine Impaired fasting glucose Overweight (BMI 25.0-29.9) 1 Occurrences starting 02/23/2025 until 02/23/2026 [facility] Comment on above: 1 Occurrences starti ng 02/23/2025 until 02/23/2026 Hemoglobin A1c/Hemoglobin.total in Blood Hemoglobin A1c Lab Routine Impaired fasting glucose Overweight (BMI 25.0-29.9) 02/23/2025 9:06 AM EDT [facility] [employer] [facility] End: 02-23-2026 Lipid 1996 panel - Serum or Plasma Lipid profile Lab Routine Mixed hyperlipidemia 1 Occurrences starting 02/23/2025 until 02/23/2026 [facility] Comment on above: 1 Occurrences starti ng 02/23/2025 until 02/23/2026 Lipid 1996 panel - Serum or Plasma Lipid profile Lab Routine Mixed hyperlipidemia 02/23/2025 9:06 [facility] EDT [facility] End: 02-22-2025 Lipid panel Lipid panel Lab Routine Mixed hyperlipidemia 1 Occurrences starting 02/23/2024 until 02/22/2025 [facility] [employer] [facility] Comment on above: 1 Occurrences starti ng 02/23/2024 until 02/22/2025 End: 02-22-2025 Prostatic specific antigen screen Prostatic specific antigen screen Lab Routine Encounter for screening for malignant neoplasm of prostate 1 Occurrences starting 02/23/2024 until 02/22/2025 [facility] Comment on above: 1 Occurrences starti ng 02/23/2024 until 02/22/2025 End: 02-23-2026 Prostatic specific antigen screen Prostatic specific antigen screen Lab Routine Encounter for screening for malignant neoplasm of prostate 1 Occurrences starting 02/23/2025 until 02/23/2026 [facility] Comment on above: 1 Occurrences starti ng 02/23/2025 until 02/23/2026 Prostatic specific antigen screen Prostatic specific antigen screen Lab Routine Encounter for screening for malignant neoplasm of prostate 02/23/2025 9:06 AM EDT [facility] Immunizations Immunization Date Immunization Notes Care Provider Fa cili 06-03-2024 influenza virus vacc ine, unspecified formulation Jimbo Furlong DO Work Phone: [facility] 05-27-2023 Influenza, High-dose , Quadrivalent Jimbo Furlong DO Work Phone: [facility] 05-27-2023 influenza virus vacc ine, unspecified formulation Jimbo Furlong DO Work Phone: [facility] 02-05-2023 tetanus toxoid, redu robb diphtheria toxoid, and acellular pertussis vaccine, adsorbed Jimbo Furlong DO Work Phone: [facility] 10-30-2022 zoster vaccine recombinant Jimbo Furlong DO Work Phone: [facility] 08-30-2022 zoster vaccine recombinant Jimbo Furlong DO Work Phone: [facility] 08-08-2022 COVID-19, mRNA, LNP- S, PF, 100mcg/0.5mL Dose Jimbo Furlong DO Work Phone: [facility] 05-29-2022 Influenza, High-dose , Quadrivalent Jimbo Furlong DO Work Phone: [facility] 11-24-2021 COVID-19, mRNA, LNP- S, PF, 100mcg/0.5mL Dose Jimbo Furlong DO Work Phone: [facility] 11-24-2021 SARS-COV-2 (COVID-19 ) Vaccine, Unspecified Jimbo Furlong DO Work Phone: [facility] 06-22-2021 COVID-19, mRNA, LNP- S, PF, 100mcg/0.5mL Dose Jimbo Furlong DO Work Phone: [facility] 06-22-2021 SARS-COV-2 (COVID-19 ) Vaccine, Unspecified Jimbo Furlong DO Work Phone: [facility] 06-12-2021 influenza, seasonal, injectable Jimbo Furlong DO Work Phone: [facility] 06-04-2021 Influenza, High-dose , Quadrivalent Jimbo Furlong DO Work Phone: [facility] 06-04-2021 pneumococcal polysaccharide vaccine, 23 valent Jimbo Furlong DO Work Phone: [facility] 11-15-2020 COVID-19, mRNA, LNP- S, PF, 100mcg/0.5mL Dose Jimbo Furlong DO Work Phone: [facility] 11-15-2020 SARS-COV-2 (COVID-19 ) Vaccine, Unspecified Jimbo Furlong DO Work Phone: [facility] 10-19-2020 COVID-19, mRNA, LNP- S, PF, 100mcg/0.5mL Dose Jimbo Furlong DO Work Phone: [facility] 10-19-2020 SARS-COV-2 (COVID-19 ) Vaccine, Unspecified Jimbo Furlong DO Work Phone: [facility] 05-09-2020 influenza, seasonal, injectable Jimbo Furlong DO Work Phone: [facility] 04-25-2020 influenza, injectabl e, quadrivalent, contains preservative Jimbo Furlong DO Work Phone: [facility] 06-25-2019 influenza, seasonal, injectable Jimbo Furlong DO Work Phone: [facility] 06-07-2019 influenza, seasonal, injectable Jimbo Furlong DO Work Phone: [facility] 05-28-2018 influenza, high dose seasonal, preservative-free Jimbo Furlong DO Work Phone: [facility] 06-11-2017 influenza virus vacc ine, unspecified formulation Jimbo Furlong DO Work Phone: [facility] 06-11-2016 pneumococcal conjuga te vaccine, 13 valent Jimbo Furlong DO Work Phone: [facility] 06-08-2016 influenza virus vacc ine, unspecified formulation Jimbo Furlong DO Work Phone: [facility] 06-21-2013 pneumococcal conjuga te vaccine, 13 valent Jimbo Furlong DO Work Phone: [employer] 09-19-2008 tetanus toxoid, redu robb diphtheria toxoid, and acellular pertussis vaccine, adsorbed Jimbo Gleason DO Work Phone: [employer] Payers Date Payer Category Payer Managed Care Other (unspecified) [facility] [id number] 2020 Unknown [facility] [employer] [id number] 2020-Present [phone] [address] [place] [address] [id number] 2020 Unknown [id number] 2016 Medicare [id number] 1959 Medicare [id number] 1959 Unknown [id number] 1951 Unknown [id number] 1950 Unknown [id number] 1951 Unknown [id number] 1950 Unknown [id number] 1950 Unknown [id number] Medicare [id number] Social History Date Type Detail Facility Start: 08-05-2022 Tobacco smoking stat RUSTIS Never smoked tobacco [facility] Start: 08-05-2022 Tobacco use and exposure Smoke less tobacco non-user [facility] Start: 02-23-2024 End: 02-23-2025 Alcoholic beverage intake Current drinker of alcohol (finding) [facility] Start: 10-29-2022 End: 08-13-2023 History of Social function [facility] Start: 10-29-2022 End: 08-13-2023 [facility] Has the [employer], [employer], oil, or water company threatened to shut off services in your home in past 12Mo No [facility] Do you belong to any clubs or organizations such as jewish groups, unions, fraternal or athletic groups, or school groups? Yes [facility] Are you now , , , , never or living with a partner? [facility] How often to you hav e a drink containing alcohol? 2-3 time sa week [facility] How many standard dr inks containing alcohol do you have on a typical day? 1 or 2 [facility] How often do you hav e 6 or more drinks on 1 occasion? Never [facility] How hard is it for y ou to pay for the very basics like food, housing, medical care, and heating Not hard at all [facility] Do you feel stress - tense, restless, nervous, or anxious, or unable to sleep at night because your mind is troubled all the time - these days [OSQ] Not at all [facility] Start: 1950 Sex assigned at Not on file P [facility] Start: 03-28-2015 Sex Male (finding) [facility] Clinical Notes 01-06-2024 to 02-23-2025 Jimbo Gleason, DO - 02/23/2025 8:30 AM EDTTelephone Encounter - Jimbo Gleason, DO - 12/23/2024 11:21 AM EDTTelephone Encounter - Abdulaziz Suggs, ACUTE CARE NURSING ASSISTANT - 12/23/2024 11:21 AM EDT Note Date & Type Note Facility 02-23-2025 History of Presen t illness Narrative Images from the original note were not included. Subjective Patient ID: Genesis Cadet is a 74 y.o. male. Girish presents today for a CV recheck. He is taking his medications. He does not have any side effects. He is seeing the aquaculture farm manager. He last saw her in July. She ordered an echocardiogram and took him off his blood thinner. He has had left hip pain for years and it is getting worse. Pain wakes him up at night. Hard to get shoes on. It sometimes feels like it is going to give out. It keeps him from exercising. It is hard to mow his lawn and he was thinking [...] past medical history, past social history, past surgical history, problem list, and medication reconciliation was completed including current medication and post discharge medication. Review of Systems Constitutional: Negative. [...] and memory normal. Judgment: Judgment normal. Assessment/Plan Genesis was seen today for hyperlipidemia and hypertension. [...] for pain as needed Paroxysmal atrial fibrillation ([facility]) Seems to be in normal sinus rhythm and no recent exacerbations. Continue beta-shanta. Anticoagulation was stopped by Cardiology. SVT (supraventricular tachycardia) Stable. Overweight (BMI 25.0-29.9) - Hemoglobin A1c; Future - Hemoglobin A1c Check A1c to see if he has developed diabetes. He is overweight. He would benefit from weight loss. Patient noted to have elevated BMI and the following intervention(s) were applied: encouragement to exercise and prescribed diet education. Encounter for screening [...] pain. With food documented in this encounter [facility] 12-23-2024 Miscellaneous Notes Rx sent in. He is overdue for a CV recheck scheduled documented in this encounter [facility] 12-23-2024 Telephone encounter Note Rx sent in. He is overdue for a CV recheck [facility] 12-23-2024 Telephone encounter Note scheduled [facility] 07-30-2024 Note [place] [facility] Ximena Cadet is a 73 y.o. year old male patient being seen for Coronary Artery Disease , Atrial Fibrillation , Hypertension, and Hyperlipidemia HPI 07/30/2024 Patient is here today for follow-up visit. He states that he has been doing well. He denies any chest discomfort at rest or with exertion. He denies exertional dyspnea, orthopnea or paroxysmal nocturnal dyspnea. He denies dizziness, syncope or near syncope. He denies palpitations, legs edema or discomfort on exertion. He exercises on a regular basis. He has been riding his stationary bikes for 1-1 and half hour 5 times a week. In summertime also he does a lot of yard work. He denies smoking, alcohol or illicit drug 02/04/2024 The patient is 72-year-old male with history [...] CALL 911), Disp: 90 tablet, Rfl: 0 rosuvastatin (Crestor) 40 mg tablet, Take 1 tablet (40 mg) by mouth in the morning., Disp: 30 tablet, Rfl: 11 Objective Visit Vitals BP 138/50 (BP Location: Left arm, Patient Position: Sitting) Pulse 50 Ht 1.676 m (5' 6 ) Wt 89.4 kg (197 lb) SpO2 97% BMI 31.80 kg/m??? Smoking Status Never BSA 2.04 m??? Physical exam: GENERAL: alert and oriented x3, well developed, in no acute distress. HEAD: atraumatic, normocephalic. EYES: AMY, EOMI. NECK: trachea midline, no JVD present, no carotid bruits present. CARDIAC: S1, S2 present. RRR. No murmur, rubs, or gallops. RESPIRATORY: CTAB, no increased effort of breathing, no rales, rhonchi, or wheezing. ABDOMEN: soft, nontender, nondistended. EXTREMITIES: no lower extremity edema. No rash/skin discoloration present. NEURO: strength/sensation equal and symmetric in bilateral upper and lower extremities. PSYCH: appropriate mood, affect, and judgement. Recent Labs 02/23/2024 Sodium 139, potassium 4, BUN 14, creatinine 0.88, GFR above 90, glucose 104, calcium 9.8 Total protein 7.6, albumin 4.4, alk phos 51, AST 37, ALT 28 HbA1c 6.2% Cholesterol 116, triglyceride 159, HDL 45, LDL 39 08/13/2023 Cholesterol 116, triglyceride 172, HDL 42, [...] CABG 05/28/2012 EP Procedure 06/04/2012 Assessment/Plan: CAD, S/p CABG 05/28/2012 3 grafts SNYDER to LAD, SVG to PDA, radial artery to OM 2, He is on aspirin, Pl (more content not included)... [facility] 04-22-2024 History of Presen t illness Narrative Subjective SUBJECTIVE: Patient ID: Genesis Cadet is a 73 y.o. male who presents for a Medicare Annual Wellness exam. HPI The following portions of the patient's history were reviewed and updated as appropriate: allergies, current medications, past family history, past medical history, past social history, past surgical history and problem list. AWV FLOWSHEET : Lifestyle Assessment Do you smoke or use smokeless tobacco?: No If you smoke or use smokeless tobacco, are you ready to quit?: NA Are you exposed to secondhand smoke?: No On average, how many drinks of alcohol do you consume in a week?: 2 - 5 Do you exercise for 30 or more minutes on average at least 3 days a week?: Often Do you have any tooth, denture, or oral problems?: No Do you snore or has anyone told you that you snore?: No Do you try to eat a balanced diet?: Yes Do you experience leakage of urine, also known as urinary incontinence?: Never Do you have difficulty performing any of these activities? (check all that apply): None Do you have difficulty performing any of these activities? (check all that apply): None Fall Risk Fall Risk Assessment Completed?: Yes Have you fallen in the past year?: No How many times?: N/A Were you injured?: N/A Are you worried about falling?: No Do you feel unsteady when standing or walking?: No Risk Stratification: Low Risk Depression Screening Little interest or pleasure in doing things: Not at all Feeling down, depressed, or hopeless: Not at all Trouble falling or staying asleep, or sleeping too much: Not at all Feeling tired or having little energy: Not at all Poor appetite or overeating: Not at all Feeling bad about yourself - or that you are a failure or have let yourself or your family down: Not at all Trouble concentrating on things, such as reading the newspaper or watching television: Not at all Moving or speaking so slowly that other people could have noticed. Or the opposite - being so fidgety or restless that you have been moving around a lot more than usual: Not at all Thoughts that you would be better off , or of hurting yourself in some way: Not at all PEG Scale What number best describes your pain on average in the past week?: 5 What number best describes how, during the past week, pain has interfered with your enjoyment of life?: 5 What number best describes how, during the past week, pain has interfered with your general activity?: 5 PEG Pain Total Score: 5 Safety Assessment Do you have throw rugs on the floor?: (!) Yes Do you feel safe at your home?: Yes Do you feel unsteady when walking?: No Are you having difficulty with driving?: No Do you have trouble seeing?: No What assistive device do you use? (check all that apply): None Hearing Assessment Do you strain or struggle to hear/understand conversations?: No Do you have trouble hearing the television or radio when others do not?: No Does your family ever voice concerns about your hearing?: No Do you wear hearing aid/s?: No Personal Health During the past 4 weeks, how would you rate your overall health?: Good Do you understand how to take all of your medications?: Yes How confident are you that you can control and manage most of your health problems?: Very confident In the past 12 months, how many times have you been hospitalized?: None End of Life Planning Do you have a living will?: Yes Do you have a durable power of criminal defense attorney?: Yes Cognitive Screening Do you have trouble remembering or recalling facts or events?: No Do family members or caregivers report that you have difficulty remembering things?: No Clock Drawing Test: Normal REVIEW OF SYSTEMS: Review of Systems Objective PHYSICAL EXAMINATION: Vitals: 04/22/24 1017 BP: 118/72 Weight: 85.9 kg (189 lb 4.8 oz) Height: 167.6 cm (5' 6 ) Physical Exam Assessment/Plan ASSESSMENT/PLAN Encounter Diagnoses Name Primary? Medicare annual wellness visit, subsequent Yes Screening for depression Health maintenance discussed. Depression screen was negative. At least 3 minute spent administering and discussing. Cognitive evaluation did not reveal any impairment He has advanced directives in place. Return in about 1 year (around 04/22/2025). documented in this encounter [facility] 02-23-2024 History of Presen t illness Narrative Subjective Patient ID: Genesis Cadet is a 73 y.o. male. Girish is here for a CV recheck. Is taking his medications. He has not having any side effects. The aquaculture farm manager stopped his Plavix. He said he did not need it anymore. He sees the aquaculture farm manager. He just saw him a couple weeks ago. hand swelled a couple weeks ago after working on the truck. He went to the ER and told he had acute arthritis. Was given a steroid pack and it is better. Otherwise he feels good. Hypertension The following portions of the patient's history were reviewed and updated as appropriate: allergies, current medications, past family history, past medical history, past social history, past surgical history, problem list, and medication reconciliation was completed including current medication and post discharge medication. Review of Systems Constitutional: Negative. HENT: Negative. Eyes: Negative. Respiratory: Negative. Cardiovascular: Negative. Gastrointestinal: Negative. Endocrine: Negative. Genitourinary: Negative. Musculoskeletal: Positive for arthralgias. Allergic/Immunologic: Negative. Neurological: Negative. Psychiatric/Behavioral: Negative. Objective Physical Exam Constitutional: General: He is not in acute distress. Appearance: He is obese. HENT: Head: Normocephalic. Eyes: Extraocular Movements: Extraocular movements intact. Conjunctiva/sclera: Conjunctivae normal. Cardiovascular: Rate and Rhythm: Normal rate and regular rhythm. Pulses: Normal pulses. Heart sounds: Normal heart sounds. No murmur heard. Pulmonary: Effort: Pulmonary effort is normal. No respiratory distress. Breath sounds: Normal breath sounds. No wheezing, rhonchi or rales. Abdominal: General: Bowel sounds are normal. Palpations: Abdomen is soft. Tenderness: There is no abdominal tenderness. Musculoskeletal: Cervical back: Neck supple. Lymphadenopathy: Cervical: No cervical adenopathy. Skin: General: Skin is warm. Neurological: General: No focal deficit present. Mental Status: He is alert and oriented to person, place, and time. Cranial Nerves: Cranial nerves 2-12 are intact. Gait: Gait is intact. Psychiatric: Attention and Perception: Attention normal. Mood and Affect: Mood and affect normal. Speech: Speech normal. Behavior: Behavior normal. Behavior is cooperative. Thought Content: Thought content normal. Cognition and Memory: Cognition normal. Judgment: Judgment normal. Assessment/Plan Genesis was seen today for hyperlipidemia and hypertension. Diagnoses and all orders for this visit: Essential hypertension - Comprehensive metabolic panel; Future Blood pressure at goal. Check CMP. Continue current regimen. Atherosclerosis of [place] coronary artery of [place] heart without angina pectoris Stable. Follow-up with specialist as directed. Mixed hyperlipidemia - Lipid panel; Future Check lipid panel Impaired fasting glucose - Hemoglobin A1c; Future Check A1c to see if he has developed diabetes. Primary osteoarthritis of right wrist X-ray of right wrist showed moderate arthritis. He is feeling better. Encounter for screening for malignant neoplasm of prostate - Prostatic specific antigen screen; Future Check PSA to screen for prostate cancer. He would pursue further evaluation and treatment if needed. Bradycardia He is bradycardic. He is asymptomatic. Continue metoprolol. Follow up with cardiology as directed. Class 1 obesity due to excess calories with serious comorbidity and body mass index of 30.0230.9 in adult Diet exercise and weight loss discussed and encouraged. He is just slightly obese with clothes. Likely just overweight but still would benefit from weight loss. documented in this encounter [facility] 02-04-2024 Note Patient here for 1 y ear follow up CAD, hypertension, PAF, and hyperlipidemia. Had routine labs w/ lipid panel in Jul 2023. He denies chest pain, SOB, palpitations, and lightheadedness/syncope. Review of Systems Musculoskeletal: Positive for joint pain and myalgias. All other systems reviewed and are negative. [facility] 02-04-2024 Note [place] [facility] - [facility] Ximena Cadet is a 73 y.o. [...] Follow-up in 6 months Norah Allen MD, [facility] 01-06-2024 Miscellaneous Notes ----- Message from Jimbo Gleason DO sent at 12/22/2023 2:04 PM EDT ----- Regarding: CV recheck Please set up Geoffrey to josefa scheduled documented in this encounter [facility] 01-06-2024 Telephone encounter Note ----- Message from Jimbo Gleason DO sent at 12/22/2023 2:04 PM EDT ----- Regarding: CV recheck Please set up [facility] 01-06-2024 Telephone encounter Note Geoffrey to josefa [facility] 01-06-2024 Telephone encounter Note scheduled [facility] Evaluation note Diagnosis Essential (primary) hypertension Unspecified essential hypertension [facility] Diagnosis Atherosclerotic heart disease of [place] coronary artery without angina pectoris [facility] Diagnosis Essential hypertension- Primary Unspecified essential hypertension Atherosclerosis of [place] coronary artery of [place] heart without angina pectoris Mixed hyperlipidemia Impaired fasting glucose Primary osteoarthritis of right wrist Encounter for screening for malignant neoplasm of prostate Bradycardia Other specified cardiac dysrhythmias Class 1 obesity due to excess calories with serious comorbidity and body mass index (BMI) of 30.0 to 30.9 in adult [facility] Diagnosis Essential (primary) hypertension Unspecified essential hypertension [facility]* Diagnosis Medicare annual wellness visit, subsequent- Primary Screening for depression [facility] Diagnosis Essential (primary) hypertension Unspecified essential hypertension Hyperlipidemia, unspecified documented [facility]* Diagnosis Essential (primary) hypertension Unspecified essential hypertension documented [facility]* Diagnosis Essential hypertension- Primary Unspecified essential hypertension Mixed hyperlipidemia Impaired fasting glucose Left hip pain Pain in joint, pelvic region and thigh Paroxysmal atrial fibrillation (CMS-HCC) Atrial fibrillation SVT (supraventricular tachycardia) Other specified cardiac dysrhythmias Overweight (BMI 25.0-29.9) Overweight Encounter for screening for malignant neoplasm of prostate [facility] filedocumented in this [facility] filedocumented in this encounter [facility] filed[facility]ed in this encounter [facility] filedocumented in this encounter [facility] filedocumented in this encounter [facility] filedocumented in this encounter [facility] filedocumented in this encounter [facility] filedocumented in [facility] Summary Purpose Family History No Family [...] section and content) DATE CREATED AUTHOR 02/18/2018 [facility] DATE CREATED AUTHOR AUTHOR'S ORGANIZ ATION 01/31/2022 [facility] DATE CREATED AUTHOR AUTHOR'S ORGANIZ ATION 07/27/2022 [facility] DATE CREATED AUTHOR AUTHOR'S ORGANIZ ATION 02/24/2024 [facility] DATE CREATED AUTHOR AUTHOR'S ORGANIZ ATION 09/05/2024 [facility] DATE CREATED AUTHOR AUTHOR'S ORGANIZ ATION 02/25/2025 [facility] Reason for Visit (unrecogniz ed section and content) Reason Comments Med Refill Reason Comments Hyperlipidemia Hypertension Reason Comments MAW Reason Comments Hyperlipidemia Hypertension Cv, left hip pain Care Teams (unrecognized sec tion and content) Pattern Technician Relationship Specialty Start Date End Date Jimbo Gleason DO [address] [place] [address] PCP - General Family Medicine 06/27/22 Pattern Technician Relationship Specialty Start Date End Date Jimbo Gleason DO [address] [place] [address] PCP - General Family Medicine 06/27/22 Pattern Technician Relationship Specialty Start Date End Date Jimbo Gleason DO [address] [place] [address] PCP - General Family Medicine 06/27/22 Pattern Technician Relationship Specialty Start Date End Date Jimbo Gleason DO [address] [place] [address] PCP - General Family Medicine 06/27/22 Pattern Technician Relationship Specialty Start Date End Date Jimbo Gleason DO [address] [place] [address] PCP - General Family Medicine 06/27/22 Pattern Technician Relationship Specialty Start Date End Date Jimbo Gleason DO [address] [place] [address] PCP - [facility] Medicine 06/27/22 Pattern Technician Relationship Specialty Start Date End Date Jimbo Gleason DO [address] [place] [address] PCP - [facility] Family Medicine 06/27/22 Pattern Technician Relationship Specialty Start Date End Date Jimbo Gleason DO [address] [place] [address] PCP - [facility] Family Medicine 06/27/22 FOR RECORDS PERTAINING TO [...] BE BASED ON THE PRIMARY CLINICAL RECORDS. [facility] [employer] [facility] provides no warranty or guarantee of the accuracy or completeness of information in this document.
--- OUTSIDE RECORDS SUMMARY | 2025-02-26 08:40 | XMS_ITS | Encounter Summary ---
Author Organization [employer] Address [facility] [id number] [address] [place] [address] Care Team Providers Care Freelance Operator Name Role Phone Jimbo Gleason Primary Care Provider + [phone] Encounter Details Date Type Department Care Team (Late st Contact Info) Description 11/15/2022 Orders Only [facility] - Family Medicine [address] [place] [id number] External, Scanning Provider Social History Tobacco Use Types Packs/Day Years Used Date Smoking Tobacco: Never Smokeless Tobacco: Never Alcohol Use Standard Drinks/Week Comments Yes 0 (1 standard drink = 0.6 oz pur e alcohol) Social Connection and Isolation Panel [NHANES] A nswer Date Recorded In a typical week, how many times do you talk on the phone with family, friends, or neighbors? Never 10/30/19 How often do you get togethe r with friends or relatives? Once a week 10/29/2022 How often do you attend chur ch or roman catholic services? 1 to 4 times per year 10/29/2022 Do you belong to any clubs o r organizations such as synagogue groups, unions, fraternal or athletic groups, or [...] food, housing, medical care, and heating? Not very hard 10/29/2022 PHQ-2 Answer Date Recorded Total Score 1 10/29/2022 [facility]at ional Health - Occupational Stress [...] medical appointments or from getting medications? No 02/2023 In the past 12 months, has l ack of transportation kept you from meetings, work, or from getting things needed for daily living? No 10/29/2022 Childcare Answer Date Recorded Do problems getting child ca re make it difficult for you to work or study? No 10/29/2022 Employment Answer Date Recorded Do you need help finding a [facility] career center and/or a training program? No 10/29/2022 Purpose - Life Answer Date Recorded I have a purpose and direction in my life. Stron gly Agree 10/29/2022 Sex and Gender Information Value Date Recorded Sex Assigned at Not on file Legal Sex Male 7:17 PM EDT Gender Identity Not on file Sexual Orientation Not on file documented as of this encounter Plan of Treatment Upcoming Encounters Date Type Department Care Team (Late st Contact Info) Description 04/26/2025 10:00 AM EDT Office Visit [facility] [address] [place] [address] 02/22/2026 9:00 AM EDT Office Visit [facility] [address] [place] [address] Jimbo Gleason DO [address] [place] [address] documented as of this encounter Procedures Procedure Name Priority Date/Time Associated Diagnosis Comments DIABETES EYE EXAM Routine 11/15/2022 documented in this encounter Results * DIABETES EYE EXAM (11/15/2022) us Scanning Provider External HEALTH MAINTENANCE nal Result MANUALLY TRANSCRIBED RESULTS documented in this encounter Visit Diagnoses Not on filedocumented in this encounter Additional Health Concerns Assessment Noted Time PHQ-9 Depression Total Score: 1 10/30/19 23 4:02 PM EST documented as of this encounter Care Teams Freelance Operator Relationship Specialty Start Date End Date Jimbo Gleason DO [address] [place] [address] PCP - General Family Medicine 06/27/22 documented as of this encounter
--- OUTSIDE RECORDS SUMMARY | 2025-02-26 08:40 | XMS_ITS | Clinical Summary ---
Author Organization [employer] Address [address] [place] [address] Care Team Providers Care Workers Compensation Defense Attorney Name Role Phone Unavailable Primary Care Provider Unavailabl e Social History Tobacco Use Types Packs/Day Years Used Date Smoking Tobacco: Never Assessed Sex and Gender Information Value Date Recorded Sex Assigned at Not on file Legal Sex Male 1:42 PM EST Gender Identity Not on file Sexual Orientation Not on file Plan of Treatment Not on file
--- OUTSIDE RECORDS SUMMARY | 2025-02-26 08:40 | XMS_ITS | Encounter Summary ---
Author Organization [employer] Address [facility] [id number] [address] [place] [address] Care Team Providers Care Power Supply Engineer Name Role Phone Jimbo Gleason Primary Care Provider + [phone] Encounter Details Date Type Department Care Team (Latest Contact Info) Description 02/21/2025 Travel Social History Tobacco Use Types Packs/Day Years Used Date Smoking Tobacco: Never Smokeless Tobacco: Never Alcohol Use Standard Drinks/Week Comments Yes 0 (1 standard drink = 0.6 oz pur e alcohol) [facility] Utilities Answer Date Recorded In the past 12 months has th readfy electric, gas, oil, or water company threatened to [...] often do you attend chur ch or sikhism services? 1 to 4 times per year 10/29/2022 Do you belong to any clubs o r organizations such as presybeterian groups, unions, fraternal [...] PHQ-2 Answer Date Recorded Total Score 0 04/22/2024 [facility] of Occupat ional Health - Occupational Stress [...] Recorded Do you need help finding a [facility] and/or a training program? No [...] - Family Medicine [address] [place] [address] 02/22/2026 9:00 AM EDT Office Visit [facility] - [facility] [address] [place] [address] Jimbo Gleason DO [address] [place] [address] documented as of this encounter Visit Diagnoses Not on filedocumented in this encounter Additional Health Concerns Assessment Noted Time PHQ-9 Depression Total Score: 0 04/22/20 24 10:18 AM EDT A Body Mass Index follow-up plan has been documented for the patient 08/13/2023 12:44 PM EST documented as of this encounter Care Teams Power Supply Engineer Relationship Specialty Start Date End Date Jimbo Gleason DO [address] [place] [address] PCP - General Family Medicine 06/27/22 documented as of this encounter
--- OUTSIDE RECORDS SUMMARY | 2025-02-26 08:40 | XMS_ITS | Clinical Summary ---
Author Organization [facility] Address [address] [place] [address] Care Team Providers Care Livestock Ranch Hand Name Role Phone Unavailable Primary Care Provider Unavailabl e Social History Tobacco Use Types Packs/Day Years Used Date Smoking Tobacco: Never Assessed Sex and Gender Information Value Date Recorded Sex Assigned at Not on file Legal Sex Male 7:40 PM EDT Gender Identity Not on file Sexual Orientation Not on file Last Filed Vital Signs Vital Sign Reading Time Taken Comments Blood Pressure 150/79 01/07/2022 12:00 PM EDT Pulse - - Temperature - - Respiratory Rate - - Oxygen Saturation - - Inhaled Oxygen Concentration - - Weight 88.9 kg (196 lb) 01/07/2022 12:00 PM EDT Height 167.6 cm (5' 6 ) 01/07/2022 12:00 PM EDT Body Mass Index 31.64 01/07/2022 12:00 PM EDT Plan of Treatment Health Maintenance Due Date Last Done Comments CT Colonography 1951 Colonoscopy 1950 Colorectal Cancer Screening 1950 FIT-DNA 1950 FIT 1950 FOBT 1950 Sigmoidoscopy 1950 Pneumococcal Vaccine: 65+ Ye ars (2 of 2 - PCV) 04/04/2021 04/04/2020, 06/21/2013 Influenza Vaccine (Season Ended) 2025 04/25/20 20 [place] [phone]
--- OUTSIDE RECORDS SUMMARY | 2025-02-26 08:40 | XMS_ITS | Encounter Summary ---
Author Organization [employer] Address [id number] [address] [place] [address] Care Team Providers Care Pricing Coordinator Name Role Phone Jimbo Gleason DO Primary Care Provider [phone] Encounter Details Date Type Department Care Team (Late st Contact Info) Description 05/22/2022 [facility]phone [facility] - Family Medicine [address] [place] [phone] Jazz Cullen CMA Social History Tobacco Use Types Packs/Day Years Used Date Smoking Tobacco: Never Assessed Childcare Answer Date Recorded Childcare Unknown 02/02/2019 Employment Answer Date Recorded Employment Unknown 02/02/2019 Purpose - Life Answer Date Recorded Purpose and direction in life Unknown Sex and Gender Information Value Date Recorded Sex Assigned at Not on file Legal Sex Male 7:17 PM EDT Gender Identity Not on file Sexual Orientation Not on file documented as of this encounter Miscellaneous Notes * Telephone Encounter - Jazz Cullen CMA - 05/22/2022 2:29 PM EDT Patient called because he tested POS for COVID yesterday and wants to know what he should be doing or not doing? * Telephone Encounter - Jimbo Gleason DO - 05/22/2022 2:29 PM EDT He can use OTC medications for symptom relief. Go to ER if having any trouble breathing. Can go to urgent care if he wants paxlovid therapy. Isolate for 5 days then can go in public with a mask for 5more days * Telephone Encounter - Jazz Cullen CMA - 05/22/2022 2:29 PM EDT Spoke with the patient and he understands documented in this encounter Plan of Treatment Upcoming Encounters Date Type Department Care Team (Late st Contact Info) Description 04/26/2025 10:00 AM EDT Office Visit [facility] Internal Medicine - Family Medicine [address] [place] [address] 02/22/2026 9:00 AM EDT Office Visit [facility] Internal Medicine - Family Medicine [address] [place] [address] Jimbo Gleason DO [address], [place] [address] documented as of this encounter Visit Diagnoses Not on filedocumented in this encounter Care Teams Pricing Coordinator Relationship Specialty Start Date End Date Jimbo Gleason DO [address] [place] [address] PCP - General Family Medicine 06/27/22 documented as of this encounter
--- OUTSIDE RECORDS SUMMARY | 2025-02-26 08:40 | XMS_ITS | Clinical Summary ---
Author Organization [facility] Address [address] [facility] [place] [address] Phone Care Team Providers Care [employer] Founder Name Role Phone Unavailable Primary Care Provider Unavailabl e Social History Tobacco Use Types Packs/Day Years Used Date Smoking Tobacco: Never Assessed Sex and Gender Information Value Date Recorded Sex Assigned at Not on file Legal Sex Male 8:02 PM EST Gender Identity Not on file Sexual Orientation Not on file Plan of Treatment Not on file
--- OUTSIDE RECORDS SUMMARY | 2025-02-26 08:40 | XMS_ITS | Encounter Summary ---
Author Organization [employer] [facility] tem Address [id number] [address] [place] [address] Care Team Providers Care Civil Design Technician Name Role Phone Jimbo Gleason DO Primary Care Provider [phone] Encounter Details Date Type Department Care Team ([facility] Contact Info) Description 05/22/2022 Orders Only [facility] - [facility] [address] [place] [phone] Ref Prov, [place] [address] Social History Tobacco Use Types Packs/Day Years [...] Encounters Date Type Department Care Team (Late Contact Info) Description 04/26/2025 10:00 AM EDT Office Visit [facility] Internal Medicine - Family Medicine [address] [place] [address] 02/22/2026 9:00 AM EDT Office Visit [facility] Internal Medicine - Family Medicine [address] [place] [address] Jimbo Gleason DO [address] [place] [address] documented as of this encounter Procedures Procedure Name Priority Date/Time Associated Diagnosis Comments DIABETES EYE EXAM Routine 05/14/2022 documented in this encounter Results * DIABETES EYE EXAM (05/14/2022) us Not In System Ref Prov HEALTH MAINTENANCE Final Result MANUALLY TRANSCRIBED RESULTS documented in this encounter Visit Diagnoses Not on filedocumented in this encounter Care Teams Civil Design Technician Relationship Specialty Start Date End Date Jimbo Gleason DO [address] [facility], [place] [address] PCP - General Family Medicine 06/27/22 documented as of this encounter
--- OUTSIDE RECORDS SUMMARY | 2025-02-26 08:40 | XMS_ITS | Encounter Summary ---
Author Organization [employer] Address [id number] [address] [place] [address] Care Team Providers Care Electron Microscopist Name Role Phone Jimbo Gleason DO Primary Care Provider [phone] Encounter Details Date Type Department Care Team ([facility] Contact Info) Description 08/07/2022 Orders Only [facility] Internal Medicine - Family Medicine [address] [place] [address] Rosalinda Auguste MA Hyperlipidemia, unspecified hyperlipidemia type; Essential hypertension Social History Tobacco Use Types Packs/Day Years Used Date Smoking Tobacco: Never Smokeless Tobacco: Never Alcohol Use Standard Drinks/Week Comments Yes 0 (1 standard drink = 0.6 oz pur e alcohol) Childcare Answer Date Recorded Childcare Unknown 02/02/2019 Employment Answer Date Recorded Employment Unknown 02/02/2019 Purpose - Life Answer Date Recorded Purpose and direction in life Unknown Sex and Gender Information Value Date Recorded Sex Assigned at Not on file Legal Sex Male 7:17 PM EDT Gender Identity Not on file Sexual Orientation Not on file COVID-19 Exposure Response Date Recorded In the last month, have you been in contact with someone who was confirmed or suspected to have Coronavirus / COVID-19? No / Unsure 08/05/2022 9:14 AM EST documented as of this encounter Plan of Treatment Upcoming Encounters Date Type Department Care Team (Late Contact Info) Description 04/26/2025 10:00 AM EDT Office Visit [facility] Internal Medicine - Family Medicine [address] [place] [phone] 02/22/2026 9:00 AM EDT Office Visit [facility] Internal Medicine - Family Medicine [address] [place] [phone] Jimbo Gleason DO [address], [place] [address] documented as of this encounter Procedures Procedure Name Priority Date/Time Associated Diagnosis Comments LIPID PROFILE Routine 07/25/2022 Hyperlipidemia, unspecified hyperlipidemia type COMPREHENSIVE METABOLIC PANEL Routine 07/25/2022 Essential hypertension documented in this encounter Results * Comprehensive metabolic panel (07/25/2022) External Albumin 4.1 MAN UALLY TRANSCRIBED RESULTS External Alt Sgpt 54 MANUALLY TRANSCRIBED RESULTS External Anion Gap 14.5 MANUALLY TRANSCRIBED RESULTS External Ast 48 MANUALL Y TRANSCRIBED RESULTS External Blood Urea Nitrogen Bun 16.0 MANUALLY TRANSCRIBED RESULTS External Calcium Ca 9.2 MANUALLY TRANSCRIBED RESULTS External Chloride 103 MANUALLY TRANSCRIBED RESULTS External Co2 / Carbon Dioxide 24.3 MANUALLY TRANSCRIBED RESULTS External Creatinine 0.87 MANUALLY TRANSCRIBED RESULTS External Gfr Non Amer >60 MANUALLY TRANSCRIBED RESULTS External Alkaline Phosphatase 59 MANUALLY TRANSCRIBED RESULTS External Glucose Fasting Or Random (Fbs) 104 MANUALLY TRANSCRIBED RESULTS External Potassium K 3.8 MANUALLY TRANSCRIBED RESULTS External Sodium Na 138 MANUALLY TRANSCRIBED RESULTS Total Bilirubin 0.7 MANU ALLY TRANSCRIBED RESULTS External Total Protein 8.3 MANUALLY TRANSCRIBED RESULTS Blood 07/25/2022 us Jimbo Gleason DO LAB BLOOD ORDERABLES Final R esult MANUALLY TRANSCRIBED RESULTS * Lipid panel (07/25/2022) External Cholesterol 120 <=200 MANUALLY TRANSCRIBED RESULTS External Cholesterol:Hdl 2.5 MANUALLY TRANSCRIBED RESULTS External Hdl Cholesterol 48 40 - 60 MANUALLY TRANSCRIBED RESULTS External Ldl (Calc) 39.4 MANUALLY TRANSCRIBED RESULTS External Triglycerides 163 MANUALLY TRANSCRIBED RESULTS External Very Low Lipoprotein 32.6 MANUALLY TRANSCRIBED RESULTS Blood 07/25/2022 us Jimbo Gleason DO LAB BLOOD ORDERABLES Edited Result - Final MANUALLY TRANSCRIBED RESULTS documented in this encounter Visit Diagnoses Diagnosis Hyperlipidemia, unspecified hyperlipidemia type Essential hypertension Unspecified essential hypertension documented in this encounter Care Teams Electron Microscopist Relationship Specialty Start Date End Date Jimbo Gleason DO [address], [facility] [place] [address] PCP - General Family Medicine 06/27/22 documented as of this encounter
--- OUTSIDE RECORDS SUMMARY | 2025-02-26 08:40 | XMS_ITS | Encounter Summary ---
Author Organization [employer] [facility] Address [id number] [address] [place] [address] Care Team Providers Care Manager Radiation Name Role Phone Jimbo Gleason DO Primary Care Provider + [phone] Encounter Details Date Type Department Care Team (Late st Contact Info) Description 02/06/2023 Documentation [facility] Internal Medicine - Family Medicine [address] [place] [address] Jimbo Gleason DO [address], [facility] [place] [address] Social History Tobacco Use Types Packs/Day Years [...] often do you attend chur ch or pentecostal services? 1 to 4 times per year 10/29/2022 Do you belong to any clubs o r organizations such as scientology groups, unions, fraternal or athletic groups, or [...] care, and heating? Not hard at all 02/03/2023 PHQ-2 Answer Date Recorded Total Score 0 02/05/2023 [facility] of Occupat ional Health - Occupational Stress [...] medical appointments or from getting medications? No 01/23 In the past 12 months, has l ack of transportation kept you from meetings, work, or from getting things needed for daily living? No 02/03/2023 Housing Instability Answer Date Recorde d Are you worried or concerned that in the next two months you may not have stable housing that you own, rent or stay in as a part of a household? No 02/03/2023 Childcare Answer Date Recorded Do problems getting child ca re make it difficult for you to work or study? No 10/29/2022 Employment Answer Date Recorded Do you need help finding a l ocal career center and/or a training program? No 10/29/2022 Hunger Screening Answer Date Recorded Within the past 12 months we worried whether our food would run out before we got money to buy more. Never True 02/05/2023 Within the past 12 months th e food we bought just didn't last and we didn't have money to get more. Never True 02/05/2023 Purpose - Life Answer Date Recorded I [...] - Family Medicine [address] [place] [address] 02/22/2026 9:00 AM EDT Office Visit [facility] Internal Medicine - Family Medicine [address] [place] [address] Jimbo Gleason DO [address] [place] [address] documented as of this encounter Visit Diagnoses Not on filedocumented in this encounter Additional Health Concerns Assessment Noted Time PHQ-9 Depression Total Score: 0 02/06/20 23 9:47 AM EDT documented as of this encounter Care Teams Manager Radiation Relationship Specialty Start Date End Date Jimbo Gleason DO [address] [facility] [place] [address] PCP - General Family Medicine 06/27/22 documented as of this encounter
--- OUTSIDE RECORDS SUMMARY | 2025-02-26 08:40 | XMS_ITS | Clinical Summary ---
Author Organization [employer] Address [id number] [address] [place] [address] Care Team Providers Care Online Publisher Name Role Phone Jimbo Gleason DO Primary Care Provider + [phone] Allergies No known active allergies Medications aspirin 81 mg capsule Active omega 3-fjo-lgo-fish oil 1,000 mg (250 mg-750 mg)/5 mL liquid Take 1 capsule by mouth in the morning and at bedtime. Active latanoprost (XALATAN) 0.005 % ophthalmic solution Active nitroglycerin (NITROSTAT) 0.4 MG SL tablet 2 Active multivitamin-mine rals-lutein (MULTIVITAMIN 50 PLUS) tablet Take 1 tablet by mouth in the morning. Active metoprolol tartrate (LOPRESSOR) 25 mg tabletIndications :Essential (primary) hypertension take 1 tablet by mouth twice daily 180 tablet 3 4 Active lisinopriL (PRINIVIL,ZESTRIL ) 40 mg tabletIndications :Essential (primary) hypertension TAKE 1 TABLET BY MOUTH DAILY 90 tablet 3 4 Active rosuvastatin (CRESTOR) 40 mg tabletIndications :Hyperlipidemia, unspecified TAKE 1 TABLET BY MOUTH DAILY 90 tablet 3 4 Active metFORMIN (GLUCOPHAGE) 500 mg tablet TAKE 1 TABLET BY MOUTH DAILY WITH BREAKFAST 90 tablet 1 5 Active hydroCHLOROthiazi de (HYDRODIURIL) 12.5 mg tabletIndications :Essential (primary) hypertension TAKE 1 TABLET BY MOUTH DAILY 90 tablet 1 5 Active meloxicam (MOBIC) 15 mg tablet Take 1 tablet (15 mg total) by mouth daily as needed for pain. 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 Overview (08/13/2023): DRESSLERS SP CABG Palpitations 06/25/2012 02/05/2023 Paroxysmal supraventricular tachycardia 06/25/20 12 Overview (08/13/2023): SP ABLATION AVNRT Coronary atherosclerosis 05/18/2012 Overview (08/13/2023): CABG X 3 SNYDER RADIAL AND SVG Resolved Problems Problem Noted Date Diagnosed Date Resolved Date Type 2 diabetes mellitus wit hout complication, without long-term current use of insulin 08/05/2022 08/05/2022 Laryngopharyngeal reflux 04/08/2020 Encounters Date Type Department Care Team Description 02/23/2025 8:30 AM EDT Office Visit [facility] [address] [place] [address] Jimbo Gleason DO Essential hypertension (Primary Dx); Mixed hyperlipidemia; Impaired fasting glucose; Left hip pain; Paroxysmal atrial fibrillation (CMS-HCC); SVT (supraventricular tachycardia); Overweight (BMI 25.0-29.9); Encounter for screening for malignant neoplasm of prostate 02/21/2025 Travel 12/23/2024 Refill [facility] [address] [place] [address] Furlong, Jimbo G, DO Essential (primary) hypertension from Last 3 Months Immunizations Immunization Administration Dates Next Due COVID-19, mRNA, LNP-S, PF, 100mcg/0.5mL Dose 08/08/2022,11/24/2021,06/22/2021,11/15,10/19/2020 Influenza High Dose Preserva tive Free IM 05/28/2018 Influenza, High-dose, Quadrivalent 05/27/2023,,06/04/2021 Influenza, Im Trivalent Preservative ,05/09/2020,06/25/2019,06/07 Influenza, Injectable, Quadrivalent 04/25/2020 Influenza, Unspecified 06/11/2017,06/08/2016 Pneumococcal Conjugate 13-Valent 06/11/2016,05/26 Pneumococcal Polysaccharide 06/04/2021 SARS-COV-2 (COVID-19) Vaccin e, Unspecified 11/24/2021,06/22/2021,11/15/2020,10/19 Tdap 02/05/2023,09/19/2008 Zoster Vaccine Recombinant 10/30/2022,08/30/2022 Family History Medical History Relation Name Comments Lymphoma Brother 1 Prostate cancer Brother 2 Cancer Father Type ? Cancer Mother Type ? Pulmonary embolism Sister 3 following hip replacement Relation Name Status Comments Brother 1 Alive Brother 2 Alive Father Mother Sister 1 Alive Sister 2 Alive Sister 3 Social History Tobacco Use Types Packs/Day Years Used Date Smoking Tobacco: Never Smokeless Tobacco: Never Tobacco Cessation:Counseling Given: Not Answered Alcohol Use Standard Drinks/Week Comments Yes 0 (1 standard drink = 0.6 oz pur e alcohol) [facility] Utilities Answer Date Recorded In the past 12 months has [employer], gas, oil, or water [employer] threatened to shut off services in your home? No 08/13/2023 Social Connection and Isolation Panel [NHANES] A nswer Date Recorded In a typical week, how many times do you talk on the phone with family, friends, or neighbors? Never 10/30/19 How often do you get togethe r with friends or relatives? Once a week 10/29/2022 How often do you attend [facility] or [employer] services? 1 to 4 times per year 10/29/2022 Do you belong to any clubs o r organizations such as pentecostalism groups, unions, fraternal or athletic groups, or [...] Answer Date Recorded Total Score 0 02/23/2025 [facility] of Occupat ional Health - Occupational Stress [...] Recorded Do you need help finding a [facility] career center and/or a training program? [...] Mass Index 29.71 02/23/2025 8:34 AM EDT Plan of Treatment Upcoming Encounters Date Type Department Care Team (Late st Contact Info) Description 04/26/2025 10:00 AM EDT Office Visit [facility] [address] [place] [address] 02/22/2026 9:00 AM EDT Office Visit [facility] [address] [place] [address] Jimbo Gleason, DO [address], [facility] [place] [address] Health Maintenance Due Date Last Done Comments COVID-19 Vaccine ( season) 2024 06/03/2024, 05/26/2023, 08/08/2022, Additional history exists Medicare Annual Wellness Visit 04/22/2025 04/22/2024 , 10/29/2022 Influenza Vaccine 04/25/2025 06/03/2024, , 05/29/2022, Additional history exists Adult BMI Follow Up Plan 02/23/2026 02/23/2025 Adult BMI Screening 02/23/2026 02/23/2025 Depression Screening 02/23/2026 02/23/2025 Fall Risk Screening 02/23/2026 02/23/2025 Tobacco Screening 02/23/2026 02/23/2025 Colon Cancer Screening 3 Yea r Cologuard 04/04/2026 04/04/2023, 04/05/2020 DTaP,Tdap and Td Vaccines (3 - Td or Tdap) 02/05/2033 02/05/2023, 09/19/2008 Zoster (Shingles) Vaccine Completed 10/30/2022, 01/2023 Medical Devices Not on file Procedures Procedure Name Priority Date/Time Associated Diagnosis Comments HEMOGLOBIN A1C Routine 02/23/2025 9:06 AM EDT Impaired fasting glucose Overweight (BMI 25.0-29.9) COMPREHENSIVE METABOLIC PANEL Routine 02/23/2025 9:06 AM EDT Essential hypertension LIPID PROFILE Routine 02/23/2025 9:06 AM EDT Mixed hyperlipidemia PROSTATIC SPECIFIC ANTIGEN SCREEN Routine 02/23/2025 9:06 AM EDT Encounter for screening for malignant neoplasm of prostate COLOGUARD NON-[facility] Routine 04/04/2023 8:10 AM EDT Special screening for malignant neoplasm of colon from Last 3 Months or Most Recently Relevant to Health Maintenance Results * Prostatic specific antigen screen (02/23/2025 9:06 AM EDT) PROSTATIC SPEC ANT 3.00 0.00 - 4.00 ng/mL 02/23/2025 6:52 PM EDT [facility] Comment: The method used for this test is Dylon Kreyonic DXI chemiluminescent immunoassay. Values obtained by different assay methods cannot be used interchangeably. Blood Venous blood / Unknown 02/23/2025 9:06 AM EDT 02/23/2025 9:06 AM EDT Jimboneno Gleason LAB BLOOD ORDERABLES Final R esult [facility] [address] [place] [address], [place] [phone] * (ABNORMAL) Hemoglobin A1c (02/23/2025 9:06 AM EDT) Pathologist [facility] HEMOGLOBIN A1C 6.0(H) 4.4 - 5.6 % 02/23/2025 7:15 PM EDT [facility] Comment: ADA Guidelines Result HgbA1c Normal : less than 5.7 % Prediabetes : 5.7 % to 6.4 % Diabetes : > 6.4 % Use with caution in patients with abnormal hemoglobin variants as the half-life of red blood cells and in vivo glycation rates are affected. EST. AVERAGE GLUCOSE 126 mg/dL 02/23/2025 7:15 PM EDT [facility] Blood Venous blood / Unknown 02/23/2025 9:06 AM EDT 02/23/2025 9:06 AM EDT [facility] BLOOD ORDERABLES Final R esult [facility] [address] [place] [address], [place] [phone] * (ABNORMAL) Lipid profile (02/23/2025 9:06 AM EDT) CHOLESTEROL 120(L) 150 - 200 mg/dL 02/23/2025 6:49 PM EDT [facility] TRIGLYCERIDE 183(H) 27 - 150 mg/dL 02/23/2025 6:49 PM EDT [facility] HDL CHOLESTEROL 42 >39 mg/dL 6:49 PM EDT [facility] Comment: HDL <40 mg/dL - High Risk HDL > or = 40mg/dL- Desirable HDL >60 mg/dL - Negative Risk LDL (CALC) 41 <130 mg/dL 02/23/2025 6:49 PM EDT [facility] Comment: LDL <100 mg/dL - Desirable LDL >160 mg/dL - High Risk CHOLESTEROL:HDL 2.9 1.0 - 5.0 6:49 PM EDT [facility] VERY LOW LIPOPROTEIN 37(H) 0 - 30 mg/dL 02/23/2025 6:49 PM EDT [facility] Blood Venous blood / Unknown 02/23/2025 9:06 AM EDT 02/23/2025 9:06 AM EDT us Jimbo Gleason DO LAB BLOOD ORDERABLES Final R esult [facility] [address] [place] [address], [place] [phone] * (ABNORMAL) Comprehensive metabolic panel (02/23/2025 9:06 AM EDT) SODIUM 141 134 - 146 mmol/L 02/23/2025 6:49 PM EDT [facility] POTASSIUM 4.5 3.5 - 5.0 mmol/L 02/23/2025 6:49 PM EDT [facility] CHLORIDE 106 98 - 109 mmol/L 02/23/2025 6:49 PM EDT [facility] CARBON DIOXIDE 26 22 - 32 mmol/L 02/23/2025 6:49 PM EDT [facility] ANION GAP 9 5 - 15 mmol/L 02/23/2025 6:49 PM EDT [facility] BLOOD UREA NITROGEN 24 5 - 27 mg/dL 02/23/2025 6:49 PM EDT [facility] CREATININE 0.89 0.60 - 1.30 mg/dL 02/23/2025 6:49 PM EDT [facility] Comment:METHOD TRACEABLE TO [facility] STANDARD GLUCOSE 100(H) 65 - 99 mg/dL 02/23/2025 6:49 PM EDT [facility] CALCIUM 9.7 8.5 - 10.5 mg/dL 02/23/2025 6:49 PM EDT [facility] TOTAL PROTEIN 7.8 6.0 - 8.0 g/dL 02/23/2025 6:49 PM EDT [facility] ALBUMIN 4.7 3.2 - 5.3 g/dL 02/23/2025 6:49 PM EDT [facility] ALKALINE PHOSPHATASE 55 39 - 130 U/L 02/23/2025 6:49 PM EDT [facility] AST 25 <=41 U/L 02/23/2025 6:49 PM EDT [facility] ALT 26 <=40 U/L 02/23/2025 6:49 PM EDT [facility] BILIRUBIN,TOTAL 0.8 0.3 - 1.2 mg/dL 02/23/2025 6:49 PM EDT [facility] EGFR Non-Race Dependent 90 >=60 ml/min/1.7 3sq.m 02/23/2025 6:49 PM EDT [facility] Comment: Reported eGFR is based on the CKD-EPI 2020 equation that does not use a race coefficient. Blood Venous blood / Unknown 02/23/2025 9:06 AM EDT 02/23/2025 9:06 AM EDT us Jimbo Gleason DO LAB BLOOD ORDERABLES Final R esult [facility] [address] [place] [address], * Cologuard Non-[facility] (04/04/2023 8:10 AM EDT) EXTERNAL COLOGUARD Negative Negative 2022 5:23 PM EDT [facility] (CLIA #:[id number]) Comment: NEGATIVE TEST RESULT. A negative Cologuard result indicates a low likelihood that a colorectal cancer (CRC) or advanced adenoma (adenomatous polyps with more advanced pre-malignant features) is present. The chance that a person with a negative Cologuard test has a colorectal cancer is less than 1 in 1500 (negative predictive value >99.9%) or has an advanced adenoma is less than 5.3% (negative predictive value 94.7%). These data are based on a prospective cross-sectional study of 10,000 individuals at average risk for colorectal cancer who were screened with both Cologuard and colonoscopy. (Radha Goss et al, N Engl J Med 2014;370(14):4722-6140) The normal value (reference range) for this assay is negative. COLOGUARD RE-SCREENING RECOMMENDATION: Periodic colorectal cancer screening is an important part of preventive healthcare for asymptomatic individuals at average risk for colorectal cancer. Following a negative Cologuard result, the [place] Cancer Society and U.S. Multi-Society Task Force screening guidelines recommend a Cologuard re-screening interval of 3 years. References: [place] Cancer Society Guideline for Colorectal Cancer Screening: https://www.cancer.org/cancer/wuyyj-ehrfwc-mgxwne/cxkpcdlrk-cmocrluvr-hoouqpp/ac s-rec ommendations.html.; Arcadio LONDON, Hilario MILLS, Shilpa BernardK, Colorectal Cancer Screening: Recommendations for Physicians and Patients from the U.S. Multi-Society Task Force on Colorectal Cancer Screening , Am J Gastroenterology 2017; 112:1006-9282. TEST DESCRIPTION: Composite algorithmic analysis of stool DNA-biomarkers with hemoglobin immunoassay. Quantitative values of individual biomarkers are not reportable and are not associated with individual biomarker result reference ranges. Cologuard is intended for colorectal cancer screening of adults of either sex, 45 years or older, who are at average-risk for colorectal cancer (CRC). Cologuard has been approved for use by the U.S. FDA. The performance of Cologuard was established in a cross sectional study of average-risk adults aged 50-84. Cologuard performance in patients ages 45 to 49 years was estimated by sub-group analysis of near-age groups. Colonoscopies performed for a positive result may find as the most clinically significant lesion: colorectal cancer [4.0%], advanced adenoma (including sessile serrated polyps greater than or equal to 1cm diameter) [20%] or non- advanced adenoma [31%]; or no colorectal neoplasia [45%]. These estimates are derived from a prospective cross-sectional screening study of 10,000 individuals at average risk for colorectal cancer who were screened with both Cologuard and colonoscopy. (Radha Goss et al, N Engl J Med 2014;370(14):5860-4998.) Cologuard may produce a false negative or false positive result (no colorectal cancer or precancerous polyp present at colonoscopy follow up). A negative Cologuard test result does not guarantee the absence of CRC or advanced adenoma (pre-cancer). The current Cologuard screening interval is every 3 years. ([place] Cancer Society and U.S. Multi-Society Task Force). Cologuard performance data in a 10,000 patient pivotal study using colonoscopy as the reference method can be accessed at the following location: www.Scanntech/results. Additional description of the Cologuard test process, warnings and precautions can be found at www.CommutableogSafetyWebrd.com. Stool specimen (specimen) Rectum structure / Unknown 04/04/2023 8:10 AM EDT 04/05/2023 10:53 PM EDT Jimbo Gleason DO LAB ORDERABLES Final Result [facility] (CLIA #:[id number]) [address] [place] [address], from Last 3 Months or Most Recently Relevant to [place] [address] MEDICARE [facility] [place] [address] Care Teams Online Publisher Relationship Specialty Start Date End Date Jimbo Gleason DO [address], [place] [address] PCP - General Family Medicine 06/27/22
--- OUTSIDE RECORDS SUMMARY | 2025-02-26 08:40 | XMS_ITS | Clinical Summary ---
Author Organization [facility] Address [address] [place] [address] Care Team Providers Care Barrel Maker Name Role Phone Jimbo Gleason DO Primary Care Provider [phone] Allergies Active Allergy Reactions Criticality Noted Date Comments Oxycodone Hcl Itching 08/05/2022 Oxycodone-Acetaminophen Rash Low 08/05/2022 Medications aspirin 81 mg EC tablet Take 81 mg by mouth in the morning. Active hydroCHLOROthiazide (HYDRODiuril) 12.5 mg tablet Take 12.5 mg by mouth in the morning. 3 Active latanoprost (Xalatan) 0.005 % ophthalmic solution Instill 1 (ONE) DROP IN BOTH EYES IN THE EVENING DIRECTED 3 Active lisinopril 40 mg tablet Take 40 mg by mouth in the morning. 3 Active metoprolol tartrate (Lopressor) 25 mg tablet Take 25 mg by mouth in the morning and at bedtime. 3 Active nitroglycerin (Nitrostat) 0.4 mg SL tabletIndications:C hest pain, unspecified type DISSOLVE 1 TABLET UNDER THE TONGUE NEEDED FOR CHEST PAIN- MAY REPEAT EVERY 5 MINUTES IF NEEDED ( MAX 3 DOSES.- IF NO RELIEF CALL 911) 90 tablet 4 Active metFORMIN (Glucophage) 500 mg tablet Take 500 mg by mouth with breakfast. Active rosuvastatin (Crestor) 40 mg tabletIndications:C oronary arteriosclerosis,Hy perlipidemia, unspecified hyperlipidemia type Take 1 tablet (40 mg) by mouth in the morning. 30 tablet 11 4 Active Active Problems Problem Noted Date Diagnosed Date Status post aorto-coronary artery bypass graft 1 09/30/2023 Bradycardia 02/23/2024 Primary osteoarthritis of right wrist 02/23/2024 Paroxysmal supraventricular tachycardia 02/04/20 24 Laryngopharyngeal reflux 04/08/2020 Calculus of common bile duct with chronic cholec ystitis 08/27/2018 Overweight (BMI 25.0-29.9) 10/11/2017 Deviated nasal septum 05/01/2017 Coronary arteriosclerosis 01/27/2017 Impaired fasting glucose 10/28/2016 Paroxysmal atrial fibrillation 06/26/2012 Postmyocardial infarction syndrome 06/26/2012 Essential hypertension 06/25/2012 Hyperlipidemia 06/25/2012 Palpitations 06/25/2012 Immunizations Immunization Administration Dates Next Due Influenza, High Dose Seasona l, Preservative Free 05/28/2018 Influenza, High-dose Seasona l, Quadrivalent, Preservative Free 05/29/2022,06/04/2021 Influenza, Unspecified 06/11/2017,06/08/2016 Influenza, injectable, quadrivalent 04/25/2020 Influenza, seasonal, injectable 06/12/20 21,05/09/2020,06/25/2019,06/07 Moderna 12 YR UP Vaccine BiV alent Booster 08/08/2022 Pneumococcal Conjugate PCV 13 06/11/2016, 013 Pneumococcal Polysaccharide PPV23 06/04/2021 Tdap 09/19/2008 Unspecified Sars-Cov-2 Vaccination 11/24,06/22/2021,11/15/2020,10/19 Zoster, Recombinant 10/30/2022,08/30/2022 Social History Tobacco Use Types Packs/Day Years Used Date Smoking Tobacco: Never Smokeless Tobacco: Never Tobacco Cessation:Counseling Given: Not Answered [place] Safety & Environment Answer Date Rec orded Fear of Current or Ex-Partner Not on file Emotionally Abused Not on file 10/16/2023 Physically Abused Not on file 10/16/2023 Sexually Abused Not on file 10/16/2023 Physically or Sexually Abused Not on file Sex and Gender Information Value Date Recorded Sex Assigned at Not on file Legal Sex Male 10:35 PM EDT Gender Identity Not on file Sexual Orientation Not on file Last Filed Vital Signs Vital Sign Reading Time Taken Comments Blood Pressure 138/50 07/30/2024 11:11 AM EST Pulse 50 07/30/2024 11:11 AM EST Temperature - - Respiratory Rate - - Oxygen Saturation 97% 07/30/2024 11:11 AM EST Inhaled Oxygen Concentration - - Weight 89.4 kg (197 lb) 07/30/2024 11:11 AM EST Height 167.6 cm (5' 6 ) 07/30/2024 11:11 AM EST Body Mass Index 31.8 07/30/2024 11:11 AM EST Plan of Treatment Health Maintenance Due Date Last Done Comments CT Colonography 1950 Colonoscopy 1950 FIT-DNA 1950 FOBT 1950 Medicare Annual Wellness (AWV) 1950 Sigmoidoscopy 1950 Depression Screening 1963 Fall Risk Screening 2016 Colorectal Cancer Screening 04/04/2024 FIT 04/04/2024 04/04/2023, 03/28/2020 COVID-19 Vaccine ( season) 2024 06/03/2024, 05/26/2023, 08/08/2022, Additional history exists Influenza Vaccine (#1) 2025 , 05/27/2023, 05/29/2022, Additional history exists Adult Tetanus 02/05/2033 02/05/2023, 09/19/2008 Pneumococcal Vaccine: 50+ Years Completed 06/04/2021, 06/11/2016, 06/21/2013 Zoster Vaccines Completed 10/30/2022, 08/30/2022 HIB Vaccines Aged Out No longer eligi ble based on patient's age to complete this topic HPV Vaccines Aged Out No longer eligi ble based on patient's age to complete this topic IPV Vaccines Aged Out No longer eligi ble based on patient's age to complete this topic Meningococcal B Vaccine Aged Out No l onger eligible based on patient's age to complete this topic Meningococcal Vaccine Aged Out No jeannette charley eligible based on patient's age to complete this topic Rotavirus Vaccines Aged Out No longer eligible based on patient's age to complete this topic [place] [address] [employer] Care Teams Barrel Maker Relationship Specialty Start Date End Date Jimbo Gleason DO PCP - General 01/08/23
--- OUTSIDE RECORDS SUMMARY | 2025-02-26 08:40 | XMS_ITS | Encounter Summary ---
Author Organization [employer] Address [facility] [place] [id number] [place] [address] Care Team Providers Care Filbert Grower Name Role Phone Jimbo Gleason Primary Care Provider [phone] Encounter Details Date Type Department Care Team (Late st Contact Info) Description 02/05/2024 Orders Only [facility] [address] [place] [id number] External, Scanning Provider Social History Tobacco Use Types Packs/Day Years Used Date Smoking Tobacco: Never Smokeless Tobacco: Never Alcohol Use Standard Drinks/Week Comments Yes 0 (1 standard drink = 0.6 oz pur e alcohol) [facility] Utilities Answer Date Recorded In the past 12 months has [employer], gas, oil, or water company threatened [...] often do you attend chur ch or nondenominational services? 1 to 4 times per year 10/29/2022 Do you belong to any clubs o r organizations such as mormon groups, unions, fraternal or athletic groups, or [...] PHQ-2 Answer Date Recorded Total Score 0 08/13/2023 [facility] [place] of Occupat ional Health - Occupational Stress [...] got money to buy more. Never True 08/13/2023 Within the past 12 months th e food we bought just didn't last and we didn't have money to get more. Never True 08/13/2023 Purpose - Life Answer Date Recorded I [...] Medicine - Family Medicine [address] [place] [address] 02/22/2026 9:00 AM EDT Office Visit [facility] [address] [place] [address] Jimbo Gleason DO [address] [facility] [place] [address] documented as of this encounter Procedures Procedure Name Priority Date/Time Associated Diagnosis Comments XR WRIST RT MIN 3 VWS Routine 02/05/2024 1:49 PM EDT documented in this encounter Results * X-ray wrist right minimum 3 views (02/05/2024 1:49 PM EDT) Anatomical Region Laterality Modality MSK, Upper Extremities, Wrist Right Co mputed Radiography us Scanning Provider External IMG DIAGNOSTIC IMAGIN G ORDERABLES Edited Result - Final documented in this encounter Visit Diagnoses Not on filedocumented in this encounter Additional Health Concerns Assessment Noted Time PHQ-9 Depression Total Score: 0 08/13/20 23 8:57 AM EST A Body Mass Index follow-up plan has been documented for the patient 08/13/2023 12:44 PM EST documented as of this encounter Care Teams Filbert Grower Relationship Specialty Start Date End Date Jimbo Gleason DO [address], [facility] [place] [address] PCP - General Family Medicine 06/27/22 documented as of this encounter
--- OUTSIDE RECORDS SUMMARY | 2025-02-26 08:40 | XMS_ITS | Encounter Summary ---
Author Organization [employer] s tem Address [id number] [address] [place] [address] Care Team Providers Care Traffic Supervisor Name Role Phone Jimbo Gleason DO Primary Care Provider + [phone] Encounter Details Date Type Department Care Team (Late st Contact Info) Description 08/11/2024 Orders Only [facility] Internal Medicine - Family Medicine [address] [place] [id number] Jimbo Gleason DO [address], [place] [place] [address] Social History Tobacco Use Types Packs/Day Years Used Date Smoking Tobacco: Never Smokeless Tobacco: Never Alcohol Use Standard Drinks/Week Comments Yes 0 (1 standard drink = 0.6 oz pur e alcohol) [facility] Utilities Answer Date Recorded In the past 12 months has [employer], gas, oil, or water company threatened to [...] often do you attend chur ch or islam services? 1 to 4 times per year 10/29/2022 Do you belong to any clubs o r organizations such as religion groups, unions, fraternal or athletic groups, or [...] Answer Date Recorded Total Score 0 04/22/2024 [facility] - Occupational [...] medical appointments or from getting medications? No 01/24 In the past 12 months, has l ack of transportation kept you from meetings, work, or from getting things needed for daily living? No 02/16/2024 Housing Instability Answer Date Recorde d Are you worried or concerned that in the next two months you may not have stable housing that you own, rent or stay in as a part of a household? No 02/16/2024 Childcare Answer Date Recorded Do problems getting child ca re make it difficult for you to work or study? No 10/29/2022 Employment Answer Date Recorded Do you need help finding a [facility] career center and/or a training program? No 10/29/2022 Hunger Screening Answer Date Recorded Within the past 12 months we worried whether our food would run out before we got money to buy more. Never True 04/22/2024 Within the past 12 months th e food we bought just didn't last and we didn't have money to get more. Never True 04/22/2024 Purpose - Life Answer Date Recorded I [...] Medicine - Family Medicine [address] [place] [address] 02/22/2026 9:00 AM EDT Office Visit [facility] Internal Medicine - Family Medicine [address] [place] [address] Jimbo Gleason DO [address] [place] [address] [place] [address] documented as of this encounter Procedures Procedure Name Priority Date/Time Associated Diagnosis Comments ECHO COMPLETE WO CONTRAST Routine 08/10/2024 9:31 AM EST documented in this encounter Visit Diagnoses Not on filedocumented in this encounter Additional Health Concerns Assessment Noted Time PHQ-9 Depression Total Score: 0 04/22/20 10:18 AM EDT A Body Mass Index follow-up plan has been documented for the patient 08/13/2023 12:44 PM EST documented as of this encounter Care Teams Traffic Supervisor Relationship Specialty Start Date End Date Jimbo Gleason DO [address] [facility] [place] [address] PCP - General Family Medicine 06/27/22 documented as of this encounter
--- OUTSIDE RECORDS SUMMARY | 2025-02-26 08:40 | XMS_ITS | Encounter Summary ---
Author Organization [employer] Address [id number] [address] [place] [address] Care Team Providers Care Forensics Team Director Name Role Phone Jimbo Gleason Primary Care Provider + [phone] Encounter Details Date Type Department Care Team (Late st Contact Info) Description 02/06/2023 Orders Only [facility] Internal Medicine - Family Medicine [address] [place] [id number] External, Scanning Provider Social History Tobacco Use [...] often do you attend chur ch or samaritan services? 1 to 4 times per year 10/29/2022 Do you belong to any clubs o r organizations such as quaker groups, unions, fraternal or athletic groups, or [...] Answer Date Recorded Total Score 0 02/05/2023 [facility] - Occupational Stress [...] Recorded Do you need help finding a [facility] career [facility] and/or a training program? [...] a purpose and direction in my life. [place] gly Agree 10/29/2022 Sex and Gender Information [...] Medicine - Family Medicine [address] [place] [address] 02/22/2026 9:00 AM EDT Office Visit [facility] Medicine - Family Medicine [address] [place] [address] Jimbo Gleason DO [address], [facility] [address] documented as of this encounter Procedures Procedure Name Priority Date/Time Associated Diagnosis Comments XR FOOT LT MIN 3 VWS Routine 02/06/2023 COLOGUARD Routine 04/05/2020 HEPATITIS C(HCV) ANTIBODY W/ REFLEX TO PCR Routine 01/29/2017 documented in this encounter Results * X-ray foot left minimum 3 views (02/06/2023) Anatomical Region Laterality Modality Lower Extremities, MSK, Foot Left Com puted Radiography us Scanning Provider External IMG DIAGNOSTIC IMAGIN G ORDERABLES Final Result * COLOGUARD (04/05/2020) us Jimbo Gleason DO HEALTH MAINTENANCE Final Res ult MANUALLY TRANSCRIBED RESULTS * Hepatitis C(HCV) Ab w/ Reflex to PCR (01/29/2017) us Jimbo Gleason DO LAB BLOOD ORDERABLES Final R esult Performing Organization Address [facility]/ZIP Co de Phone Number MANUALLY TRANSCRIBED RESULTS documented in this encounter Visit Diagnoses Not on filedocumented in this encounter Additional Health Concerns Assessment Noted Time PHQ-9 Depression Total Score: 0 02/06/20 9:47 AM EDT documented as of this encounter Care Teams Forensics Team Director Relationship Specialty Start Date End Date Jimbo Gleason DO [address], [place] [address] PCP - General Family Medicine 06/27/22 documented as of this encounter
--- OUTSIDE RECORDS SUMMARY | 2025-02-26 08:40 | XMS_ITS | Encounter Summary ---
Author Organization [employer] Address [id number] [address] [place] [address] Care Team Providers Care Kosher Inspector Name Role Phone Jimbo Gleason Primary Care Provider + [phone] Encounter Details Date Type Department Care Team (Late st Contact Info) Description 05/19/2023 Orders Only [facility] Internal Medicine - Family Medicine [address] [place] [address] Ref Prov, [place] [address] Social History Tobacco Use Types Packs/Day Years [...] often do you attend chur ch or yarsanism services? 1 to 4 times per year 10/29/2022 Do you belong to any clubs o r organizations such as christian groups, unions, fraternal or athletic groups, or [...] Date Recorded Total Score 0 02/05/2023 [facility] - Occupational [...] Recorded Do you need help finding a [facility] career center and/or a training program? [...] Medicine - Family Medicine [address] [place] [address] 02/22/2026 9:00 AM EDT Office Visit [facility] - Family Medicine [address] [place] [address] Jimbo Gleason DO [address], [place] [address] documented as of this encounter Procedures Procedure Name Priority Date/Time Associated Diagnosis Comments DIABETES EYE EXAM Routine 05/19/2023 3:14 PM EDT documented in this encounter Results * DIABETES EYE EXAM (05/19/2023 3:14 PM EDT) us Not In System Ref Prov HEALTH MAINTENANCE Final Result MANUALLY TRANSCRIBED RESULTS documented in this encounter Visit Diagnoses Not on filedocumented in this encounter Additional Health Concerns Assessment Noted Time PHQ-9 Depression Total Score: 0 02/06/20 23 9:47 AM EDT documented as of this encounter Care Teams Kosher Inspector Relationship Specialty Start Date End Date Jimbo Gleason DO [address] [place] [address] PCP - General Family Medicine 06/27/22 documented as of this encounter
--- OUTSIDE RECORDS SUMMARY | 2025-02-26 08:40 | XMS_ITS | Encounter Summary ---
Author Organization [employer] s tem Address [facility] [id number] [address] [place] [address] Care Team Providers Care Hawk Missile System Crewmember Name Role Phone Jimbo Gleason DO Primary Care Provider + [phone] Reason for Visit * Reason Comments Med Refill Encounter Details Date Type Department Care Team (Late st Contact Info) Description 07/01/2022 Refill [facility] Internal Medicine - Family Medicine [address] [place] [address] Jimbo Gleason DO [address] [facility] [place] [address] Hyperlipidemia, unspecified; Essential (primary) hypertension Social History Tobacco Use Types Packs/Day [...] Description 04/26/2025 10:00 AM EDT [facility] - Family Medicine [address] [place] [address] 02/22/2026 9:00 AM EDT [facility] - Family Medicine [address] [place] [address] Jimbo Gleason DO [address] [facility] [place] [address] documented as of this encounter Visit Diagnoses Diagnosis Hyperlipidemia, unspecified Essential (primary) hypertension Unspecified essential hypertension documented in this encounter Care Teams [employer] Missile System Crewmember Relationship Specialty Start Date End Date Jimbo Gleason DO [address] [place] [address] PCP - General Family Medicine 06/27/22 documented as of this encounter
--- OUTSIDE RECORDS SUMMARY | 2025-02-26 08:40 | XMS_ITS | Encounter Summary ---
Author Organization [employer] s tem Address [id number] [address] [place] [address] Care Team Providers Care Packer Fuser Name Role Phone Jimbo Gleason Primary Care Provider + [phone] Encounter Details Date Type Department Care Team (Late st Contact Info) Description 11/02/2024 Orders Only [facility] Internal Medicine - Family Medicine [address] [place] [address] Ref Prov, [place] [address] Social History Tobacco Use Types Packs/Day Years Used Date Smoking Tobacco: Never Smokeless Tobacco: Never Alcohol Use Standard Drinks/Week Comments Yes 0 (1 standard drink = 0.6 oz pur e alcohol) [facility] Utilities Answer Date Recorded In the past 12 months has th e electric, gas, oil, or water company threatened [...] often do you attend chur ch or mormonism services? 1 to 4 times per year 10/29/2022 Do you belong to any clubs o r organizations such as catholic groups, unions, fraternal or athletic groups, or [...] Answer Date Recorded Total Score 0 04/22/2024 [facility] Occupat ional Health - Occupational Stress [...] Medicine - Family Medicine [address] [place] [address] 02/22/2026 9:00 AM EDT Office Visit [facility] Medicine - Family Medicine [address] [place] [address] Jimbo Gleason DO [address], [place] [address] documented as of this encounter Procedures Procedure Name Priority Date/Time Associated Diagnosis Comments DIABETES EYE EXAM Routine 11/02/2024 3:09 PM EDT documented in this encounter Results * DIABETES EYE EXAM (11/02/2024 3:09 PM EDT) us Not In System Ref [...] documented as of this encounter Care Teams Packer Fuser Relationship Specialty Start Date End Date Jimbo Gleason DO [address], [place] [address] PCP - General Family Medicine 06/27/22 documented as of this encounter
--- OUTSIDE RECORDS SUMMARY | 2025-02-26 08:40 | XMS_ITS | Encounter Summary ---
Author Organization [employer] Address [id number] [address] [place] [address] Care Team Providers Care It Network Architect Name Role Phone Jimbo Gleason DO Primary Care Provider + [phone] Encounter Details Date Type Department Care Team (Late st Contact Info) Description 08/06/2022 [facility]phone [facility] Family Medicine [address] [place] [address] Rosalinda Auguste MA Social History Tobacco Use Types Packs/Day Years [...] AM EST documented as of this encounter Miscellaneous Notes * Telephone Encounter - Rosalinda Auguste MA - 08/06/2022 1:10 PM EST He called and said the Xarelto that was sent in for him is $500 and he is not able to afford that. Is there something different he can try? * Telephone Encounter - Jimbo Gleasno DO - 08/06/2022 1:10 PM EST No, it is new. He should just stay on the Plavix then * Telephone Encounter - Rosalinda Auguste MA - 08/06/2022 1:10 PM EST Patient notified and understands. documented in this encounter Plan of Treatment Upcoming Encounters Date Type Department Care Team (Late st Contact Info) Description 04/26/2025 10:00 AM EDT Office Visit [facility] Internal Medicine - Family Medicine [address] [place] [address] 02/22/2026 9:00 AM EDT Office Visit [facility] Internal Medicine - Family Medicine [address] [place] [address] Jimbo Gleason DO [address], [facility] [address] documented as of this encounter Visit Diagnoses Not on filedocumented in this encounter Care Teams It Network Architect Relationship Specialty Start Date End Date Jimbo Gleason DO [address], [place] [address] PCP - General Family Medicine 06/27/22 documented as of this encounter
--- NOTE | 2025-02-26 08:51 | XR_ITS ---
[facility] [place] [id number] Patient Name: GENESIS CADET MRN: [id number] date: 1950 Sex: M Assigned Patient Location: RAD Current Patient Location: [facility] Accession/Order Number: [id number] Exam Date: 02/26/2025 14:23 Report Date: 02/26/2025 14:24 At the request of: CASE RUST Procedure: XR hip LT 2V w/ pelvis 2 views left hip a single view pelvis HISTORY: Chronic left hip pain Adequate hip joint spaces. Marginal spurring bilaterally. Moderate SI joint and lumbar degenerative changes. No acute bony findings. Adequate alignment. Unremarkable soft tissues. XR/XR hip LT 2V w/ pelvis IMPRESSION: Mild left hip degeneration. Impression dictated by: Haider Delong M.D. 02/26/2025 2:24 PM Dictation Location: [place] [address] Electronically authenticated by: [id number] Y Date: 02/26/2025 14:24
== END 2025-02-26 08:37 | disposition home or self-care (01) ==
PROVIDERS: PCP Family Medicine; Visit Provider Family Medicine
DX: M25.552 Pain in left hip (principal)
CPT/HCPCS: 73502